=== PATIENT | female | born 1965 | race Caucasian/White ===

== ENCOUNTER 2021-02-17 06:17 | Outpatient (REF) | payer OTHER, SELFPAY ==
[2021-02-17 07:49] LABS: ~HepC Num1 0.08 S/CO (0.00-0.79); ~Hepatitis C Antibody Nonreactive (Nonreactive)
[2021-02-17 08:19] LABS: Alanine Aminotransferase 58 U/L (0-31); Albumin Level 4.6 g/dL (3.5-5.0); Alkaline Phosphatase 99 U/L (39-117); Anion Gap 13 (12-20); Aspartate Amino Transferase 34 U/L (5-31); Bilirubin Total 0.7 mg/dL (0.0-1.0); Blood Urea Nitrogen 13 mg/dL (9-16); Calcium 9.1 mg/dL (8.4-10.2); Carbon Dioxide 27 mmol/L (22-29); Chloride 102 mmol/L (96-108); Cholesterol 239 mg/dL; Estimated Glomerular Filt Rate > 60; Glucose Random 109 mg/dL (60-115); HDL Cholesterol 50 mg/dL; LDL Cholesterol Calculated 159 mg/dl; Potassium 3.9 mmol/L (3.3-5.1); Sodium 138 mmol/L (135-145); Triglycerides 151 mg/dL
[2021-02-17 08:39] LABS: Vitamin D 25-OH Total 18.7 ng/mL (>30)
== END 2021-02-17 06:18 | disposition home or self-care (01) ==
LOC: HO.LAB 06:17
PROVIDERS: PCP Internal Medicine; Visit Provider Physician Assistant Medical
DX: I10 Essential (primary) hypertension (principal); E55.9 Vitamin D deficiency, unspecified; Z13.220 Encounter for screening for lipoid disorders; Z11.59 Encounter for screening for other viral diseases
CPT/HCPCS: 36415; 80053; 80061; 82306; 86803

== ENCOUNTER 2021-11-16 08:02 | Outpatient (REF) | payer OTHER, SELFPAY ==
[2021-11-22 08:51] LABS: HPV mRNA E6/E7 rflx Not Detected (Not Detected)
== END 2021-11-16 08:03 | disposition home or self-care (01) ==
LOC: HO.LAB 08:02
PROVIDERS: PCP Internal Medicine; Visit Provider Obstetrics & Gynecology
DX: Z01.419 Encounter for gynecological examination (general) (routine) without abnormal findings (principal); Z11.51 Encounter for screening for human papillomavirus (HPV)
CPT/HCPCS: 87624; 88142

== ENCOUNTER 2021-12-02 10:07 | Outpatient (REF) | payer OTHER, SELFPAY ==
[2021-12-02 10:28] LABS: MANUAL DIFF FLAG NO
[2021-12-02 11:24] LABS: Basophils Absolute Auto 0.1 X10*3/uL (0.0-0.2); Basophils Percent Auto 0.9 % (0-2); Eosinophils Absolute Auto 0.1 X10*3/uL (0.0-0.4); Eosinophils Percent Auto 1.7 % (0-4); Hematocrit 41.9 % (37.0-47.0); Hemoglobin 13.9 g/dl (12.0-16.0); Imm Gran Abs Auto 0.02 X10*3/uL (0.00-0.03); Imm Gran Pct Auto 0.3 % (0.0-0.4); Lymphocytes Absolute Auto 2.9 X10*3/uL (1.2-4.9); Lymphocytes Percent Auto 43.9 % (20-40); Mean Corpuscular HGB Conc 33.2 g/dl (31.0-35.0); Mean Corpuscular Hemoglobin 28.7 pg (27.0-33.0); Mean Corpuscular Volume 86.6 fL (80.0-98.0); Monocytes Absolute Auto 0.5 X10*3/uL (0.1-1.2); Monocytes Percent Auto 7.1 % (2-11); Neutrophils Absolute Auto 3.1 x10*3/uL (2.0-8.3); Neutrophils Percent Auto 46.1 % (45-73); Platelet Count 381 X10*3/uL (160-400); Red Blood Count 4.84 X10*6/uL (4.20-5.50); Red Cell Distribution Width 12.5 % (11.0-16.0); White Blood Count 6.6 X10*3/uL (4.8-10.8)
[2021-12-02 11:57] LABS: Estimated Average Glucose 114 mg/dL; Hemoglobin A1c % 5.6 %
[2021-12-02 11:58] LABS: Alanine Aminotransferase 26 U/L (0-31); Albumin Level 4.4 g/dL (3.5-5.0); Alkaline Phosphatase 102 U/L (39-117); Anion Gap 12 (12-20); Aspartate Amino Transferase 18 U/L (5-31); Bilirubin Total 0.5 mg/dL (0.0-1.0); Blood Urea Nitrogen 16 mg/dL (9-16); Calcium 9.5 mg/dL (8.4-10.2); Carbon Dioxide 26 mmol/L (22-29); Chloride 106 mmol/L (96-108); Cholesterol 246 mg/dL; Estimated Glomerular Filt Rate > 60; Glucose Random 99 mg/dL (60-115); HDL Cholesterol 58 mg/dL; LDL Cholesterol Calculated 171 mg/dl; Potassium 4.3 mmol/L (3.3-5.1); Sodium 140 mmol/L (135-145); Total Protein 7.8 g/dL (6.5-8.0); Triglycerides 85 mg/dL
[2021-12-02 12:20] LABS: Free T4 (Free Thyroxine) 0.93 ng/dL (0.71-1.85); Thyroid Stimulating Hormone 2.32 uIU/mL (0.32-4.0); Vitamin D 25-OH Total 19.1 ng/mL (>30)
[2021-12-04 05:10] LABS: HBS Num1 1.32 mIU/mL (0-7.99); HBc Num1 0.09 S/CO (0.00-0.79); HBsAGNum1 0.18 S/CO (0.00-0.99); Hepatitis B Core Antibody Nonreactive (Nonreactive); Hepatitis B Surface Antigen Negative (Negative); ~Hepatitis B Surface Antibody NONREACTIVE (Nonreactive)
[2021-12-04 05:49] LABS: ~HepC Num1 0.13 S/CO (0.00-0.79); ~Hepatitis C Antibody Nonreactive (Nonreactive)
[2021-12-04 07:57] LABS: Vitamin B12 737 pg/mL (200-900)
[2021-12-06 23:11] LABS: Smooth Muscle Antibody <20 U (<20)
== END 2021-12-02 10:08 | disposition home or self-care (01) ==
LOC: HO.LAB 10:07
PROVIDERS: PCP Internal Medicine; Visit Provider Internal Medicine
DX: R79.89 Other specified abnormal findings of blood chemistry (principal); R94.5 Abnormal results of liver function studies; I10 Essential (primary) hypertension; R73.01 Impaired fasting glucose; E78.00 Pure hypercholesterolemia, unspecified
CPT/HCPCS: 36415; 80053; 80061; 82306; 82607; 82746; 83036; 84439; 84443; 85025; 86015; 86704; 86706; 86803; 87340

== ENCOUNTER 2022-01-04 08:21 | Outpatient (REF) | payer OTHER, SELFPAY ==
--- NOTE | ~2022-01-04 | US_ITS ---
EXAMINATION: US ABDOMEN COMPLETE CLINICAL INFORMATION: Abnormal LFTs. COMPARISON: Renal ultrasound 09/30/2017. TECHNIQUE: Real-time imaging of the abdominal viscera. FINDINGS: PANCREAS: Normal. ABDOMINAL AORTA: The proximal, mid, and distal segments are normal in caliber. INFERIOR VENA CAVA: Visualized portions are normal. LIVER: The liver is normal in size. The liver contour is normal. The liver shows increased echogenicity. No focal hepatic lesion. There is no intrahepatic biliary duct dilatation seen. GALLBLADDER: Normal. The gallbladder is physiologically distended without evidence of stones, sludge, polyps, wall thickening or pericholecystic fluid. COMMON BILE DUCT: Normal in caliber measuring 0.4 cm in diameter. RIGHT KIDNEY: There is an echogenic stone midpole measuring 0.34 x 0.23 x 0.27 cm and a midpole stone measuring 0.35 x 0.28 x 0.28 cm. No hydronephrosis or focal parenchymal lesions. The kidney measures 12.1 cm in maximum dimension. LEFT KIDNEY: There is an echogenic stone in the lower pole measuring 0.24 x 0.20 x 0.26. No caliectasis or hydronephrosis. There is anechoic cyst measuring 0.76 x 0.57 x 0.78 cm in lower pole. No hydronephrosis. The kidney measures 12.2 cm in maximum dimension. SPLEEN: Normal. The spleen measures 10.3 cm in maximum dimension. FREE FLUID: None. US/US abdomen complete IMPRESSION: 1. Bilateral non-obstructive echogenic renal calculi. Anechoic cysts lower pole left kidney. 2. Hepatic steatosis without focal lesion. 3. The rest of the abdominal ultrasound is unremarkable.
== END 2022-01-04 08:22 | disposition home or self-care (01) ==
LOC: HO.HMGCX 08:21
PROVIDERS: Visit Provider Internal Medicine
DX: R79.89 Other specified abnormal findings of blood chemistry (principal)
CPT/HCPCS: 76700

== ENCOUNTER 2022-01-20 08:35 | Emergency (ER) | payer OTHER, SELFPAY ==
--- NOTE | ~2022-01-20 | XR_ITS ---
EXAMINATION: XR CHEST CLINICAL INFORMATION: Cough. COMPARISON: Most recent chest radiograph dated 08/08/2020. TECHNIQUE: 2 views of the chest were obtained. FINDINGS: The lungs are clear. The cardiomediastinal silhouette is normal in size. There is no pleural effusion or pneumothorax. No acute osseous abnormality. XR/XR chest 2V IMPRESSION: No acute cardiopulmonary findings.
[2022-01-20 08:52] VITALS: BP 171/86; PULSE 71; RESP 18; TEMP 35.8; O2SAT 100; BMI 34.7
[2022-01-20 09:59] LABS: COVID-19 Test Negative (Negative)
--- NOTE | 2022-01-20 10:58 | ED.GENADULT ---
HPI - General Adult General Chief complaint: General Medical <ELIZABETH Rushing - Last Filed: 01/26/22 18:03> Stated complaint: sore throat cough <ELIZABETH Rushing - Last Filed: 01/26/22 18:03> Time Seen by Provider: 01/20/22 09:45 <ELIZABETH Rushing - Last Filed: 01/26/22 18:03> History of Present Illness HPI narrative: Patient complains of productive cough, body aches, nasal congestion and sore throat, no difficulty breathing no difficulty swallowing <ELIZABETH Rushing - Last Filed: 01/26/22 18:03> Related Data Home medications: Home Medications Medication Instructions Recorded Confirmed albuterol sulfate 90 mcg/actuation 2 puff INHALATION Q4-6H PRN 10/09/21 01/26/22 aerosol inhaler (ProAir HFA) butalbital 50 mg-acetaminophen 325 1 cap PO Q4H PRN 10/09/21 01/26/22 mg-caffeine 40 mg-codeine 30 mg cap Previous Rx's Medication Instructions Recorded lorazepam 0.5 mg tablet 0.5 mg PO DAILY PRN 5 Days #5 tab 12/08/21 albuterol sulfate 90 mcg/actuation 2 puff INHALATION Q4-6H PRN #6.7 g 01/20/22 aerosol inhaler azithromycin 250 mg tablet See Rx Instructions .ROUTE 01/20/22 (Zithromax Z-Tim) .COMPLEX #6 tab verapamil 240 mg 24 hr 240 mg PO DAILY 90 Days #90 cap 01/22/22 capsule,extended release amoxicillin 875 mg-potassium 1 tab PO BID #14 tab 01/26/22 clavulanate 125 mg tablet benzonatate 100 mg capsule 100 mg PO BID PRN #14 cap 01/26/22 prednisone 20 mg tablet 20 mg PO BID #9 tab 01/26/22 <ELIZABETH Rushing - Last Filed: 01/26/22 18:03> Allergies/adverse reactions: Allergies Allergy/AdvReac Type Severity Reaction Status Date / Time hydrochlorothiazide Allergy Severe SWELLING Verified 01/26/22 15:01 [HYDROCHLOROTHIAZIDE] lisinopril [LISINOPRIL] Allergy Intermediate FACIAL Verified 01/26/22 15:01 SWELLING peanut [Peanut] Allergy Mild HIVES Verified 01/26/22 15:01 <ELIZABETH Rushing - Last Filed: 01/26/22 18:03> Review of Systems Review of Systems: Positive for cough runny nose and sore throat Negatives are no fever no chills no dizziness or weakness no headache no stiff neck no confusion no fainting or feeling faint no stiff neck no chest pain no shortness of breath no abdominal pain no nausea vomiting or diarrhea no calf swelling no leg swelling no calf pain no rash <ELIZABETH Rushing - Last Filed: 01/26/22 18:03> Yes all other systems are reviewed and are negative <ELIZABETH Rushing - Last Filed: 01/26/22 18:03> PMFSH Past Medical History Source: nursing notes reviewed <ELIZABETH Rushing - Last Filed: 01/26/22 18:03> Medical History: Medical History Asthma Hypercholesterolemia Obesity (BMI 30-39.9) Vitamin D deficiency <ELIZABETH Rushing - Last Filed: 01/26/22 18:03> Surgical History: Surgical History H/O section History of tonsillectomy <ELIZABETH Rushing - Last Filed: 01/26/22 18:03> Family History Family History: Family History Brother Myocardial infarct Paternal Grandfather Myocardial infarct Mother Lymphoma <ELIZABETH Rushing - Last Filed: 01/26/22 18:03> Social History Social History: Social History Housing: House Alcohol intake: never Patient Tobacco Use Status: Never used Tobacco e-Cigarette/Vaping Use: Never Used Second Hand Smoke Exposure: No Current occupational status: employed <ELIZABETH Rushing - Last Filed: 01/26/22 18:03> Physical Exam ED Vital Signs: Vital Signs - 24 hr 01/20/22 08:52 Temperature 96.5 F L Pulse Rate 71 Respiratory Rate 18 Blood Pressure 171/86 H Pulse Oximetry 100 BMI result Body Mass Index 34.7 <ELIZABETH Rushing - Last Filed: 01/26/22 18:03> General appearance is no acute distress The sinuses are not tender The eyes no redness or discharge The pharynx was clear with no redness swelling or exudate, mucous membranes moist Neck is supple Chest clear to auscultation bilateral Heart no murmur Abdomen soft nontender Extremities no edema no calf tenderness or swelling Skin no rash Neuro no gross deficits <ELIZABETH Rushing Last Filed: 01/26/22 18:03> Course Course Course Narrative: Well-appearing patient is treated for productive cough and bronchitis and is discharged <ELIZABETH Rushing Last Filed: 01/26/22 18:03> Medical Decision Making Lab Data Labs: Lab Results 01/20/22 Range/Units 09:32 COVID-19 ([facility]) Negative (Negative) COVID-19 Clin Com See Note <ELIZABETH Rushing Last Filed: 01/26/22 18:03> Discharge Plan Discharge Clinical Impression: Bronchitis <ELIZABETH Rushing Last Filed: 01/26/22 18:03> Patient Disposition: Home, Self-Care <ELIZABETH Rushing Last Filed: 01/26/22 18:03> Additional Instructions: COVID test was negative and chest x-ray was normal Retreating possible bronchitis with antibiotic Zithromax We gave a dose of steroid in the emergency room which may reduce throat inflammation Follow with primary doctor next week if not better Return any time if worse For nasal congestion nasal spray such as Afrin is the best decongestant but it may possibly raise blood pressure Nasal washes or saline spray may be helpful for nasal congestion <ELIZABETH Rushing Last Filed: 01/26/22 18:03> Prescriptions: New azithromycin [Zithromax Z-Tim] 250 mg tablet See Rx Instructions .ROUTE .COMPLEX Qty: 6 0RF Rx Instructions: For 250 mg dose pack: take 500 mg today (day 1), then 250 mg for 4 days (days 2-5) albuterol sulfate 90 mcg/actuation HFA aerosol inhaler 2 puff inhalation Q4-6H PRN (Reason: shortness of breath or wheezing) Qty: 6.7 0RF No Action lorazepam 0.5 mg tablet 0.5 mg PO DAILY PRN (Reason: anxiety) 5 Days Qty: 5 0RF verapamil 240 mg capsule,ext rel. pellets 24 hr 240 mg PO DAILY 90 Days Qty: 90 1RF albuterol sulfate [ProAir HFA] 90 mcg/actuation HFA aerosol inhaler 2 puff inhalation Q4-6H PRN0RF yzrzygqyxq-dqpqgdkven-aha-cod 42-208-43-30 mg capsule 1 cap PO Q4H PRN0RF prednisone 20 mg tablet 20 mg PO BID Qty: 9 0RF Rx Instructions: this is a tapered dose, take 1 tablet bid x 3 days, then take 1 tablet po qd x 3 days. benzonatate 100 mg capsule 100 mg PO BID PRN (Reason: cough) Qty: 14 0RF amoxicillin-pot clavulanate 875-125 mg tablet 1 tab PO BID Qty: 14 0RF <ELIZABETH Rushing - Last Filed: 01/26/22 18:03> Stand Alone Forms: Work/School Release <ELIZABETH Rushing - Last Filed: 01/26/22 18:03> Interventions: ED Discharge Assessment Last Done: 01/20/22 11:14 <ELIZABETH Rushing - Last Filed: 01/26/22 18:03> Discharge Date/Time: 01/20/22 11:16 <ELIZABETH Rushing - Last Filed: 01/26/22 18:03>
--- NOTE | 2022-01-20 11:09 | PC.NURSE ---
SPEAKING IN FULL SENTENCES, LUNGS CLEAR, DRY INTERMITTENT COUGH, NASAL CONGESTION. STEADY GAIT, NEUROS INTACT, NAD.
[2022-01-20] MEDS: dexAMETHasone 2 MG TABLET 10 MG PO (11:10)
== END 2022-01-20 11:16 | disposition home or self-care (01) ==
PROVIDERS: Emergency Provider Emergency Medicine; PCP Internal Medicine
DX: J40 Bronchitis, not specified as acute or chronic (principal); Z20.822 Contact with and (suspected) exposure to COVID-19; J02.9 Acute pharyngitis, unspecified; I10 Essential (primary) hypertension; E78.00 Pure hypercholesterolemia, unspecified
CPT/HCPCS: 71046; 87635; 99283; J8540

== ENCOUNTER 2022-03-15 16:29 | Outpatient (REF) | payer OTHER, SELFPAY ==
--- NOTE | ~2022-03-15 | MM_ITS ---
EXAMINATION: MM SCREENING DIGITAL BREAST TOMOSYNTHESIS, BILATERAL CLINICAL INFORMATION: Screening. Asymptomatic. The lifetime risk of breast cancer based on the Tyrer-Cuzick Model is 7%. COMPARISON: Outside mammography: 05/13/2010 ([place]). TECHNIQUE: Digital breast tomosynthesis is performed in both the craniocaudal and mediolateral oblique views along with computer-aided detection (CAD). Synthesized 2D images are generated from the tomosynthesis. FINDINGS: There are scattered areas of fibroglandular density (ACR BI-RADS breast composition Category b). The breasts show no interval mass or architectural abnormality. The bilateral axilla and skin contours are unremarkable. Left breast shows no abnormal calcifications. Right breast has new numerous segmental distributed calcifications posterior mid lower central breast. There is also a linear distribution calcifications anterior central right breast which are coarser and also new from remote outside exam. Patient will be recalled for additional magnification views. MM/MM tomosynthesis screening BI IMPRESSION: Right: -Numerous new segmental calcifications posterior mid central lower breast. -New linear distribution calcifications anterior central breast. Left: -No mammographic evidence of malignancy. ASSESSMENT: BI-RADS 0: Incomplete - Need Additional Imaging Evaluation RECOMMENDATION: 1. Additional views of the right breast (magnification CC, magnification ML). 2. Radiology department staff will contact the patient for additional imaging. This patient's information was entered into a reminder system with a target due date for their next mammogram.
== END 2022-03-15 16:30 | disposition home or self-care (01) ==
LOC: HO.MAMMO 16:29
PROVIDERS: PCP Internal Medicine; Visit Provider Internal Medicine
DX: Z12.31 Encounter for screening mammogram for malignant neoplasm of breast (principal)
CPT/HCPCS: 77063; 77067

== ENCOUNTER 2022-03-27 08:25 | Outpatient (REF) | payer OTHER, SELFPAY ==
--- NOTE | ~2022-03-27 | MM_ITS ---
EXAMINATION: MM DIAGNOSTIC DIGITAL MAMMOGRAPHY, RIGHT CLINICAL INFORMATION: Recall from screening for new segmental calcifications right breast. TC score 7%. COMPARISON: Mammography: 03/15/2022, 05/13/2010 TECHNIQUE: Digital mammography is performed in the following views: Magnification CC, magnification ML. FINDINGS: There are scattered areas of fibroglandular density (ACR BI-RADS breast composition Category b). The additional views confirm heterogeneous predominantly fine calcifications mid lower right breast, extending posterior to anterior at least 3 cm in length. This represents change from prior remote mammography 2009. There is a second group of new calcifications which are both coarse and fine anterior lower breast, approximately 1.6 cm in length. Results are discussed with the patient at time of visit. Stereotactic sampling of both areas is recommended. MM/MM added views RT IMPRESSION: -Numerous new heterogeneous segmental calcifications mid central lower right breast. -Second group of linear distribution calcifications anterior lower right breast. ASSESSMENT: BI-RADS 4: Suspicious RECOMMENDATION: Stereotactic sampling right breast calcifications, 2 sites.
== END 2022-03-27 08:26 | disposition home or self-care (01) ==
LOC: HO.MAMMO 08:25
PROVIDERS: PCP Internal Medicine; Visit Provider Internal Medicine
DX: R92.1 Mammographic calcification found on diagnostic imaging of breast (principal)
CPT/HCPCS: 77065

== ENCOUNTER 2022-03-28 11:39 | Outpatient (REF) | payer OTHER, SELFPAY ==
--- NOTE | ~2022-03-28 | MM_ITS ---
EXAMINATION: STEREOTACTIC TOMOSYNTHESIS-GUIDED VACUUM-ASSISTED BREAST BIOPSY (TWO SITES), RIGHT SPECIMEN RADIOGRAPHS (TWO SPECIMENS), RIGHT POST PROCEDURE DIGITAL MAMMOGRAM, RIGHT CLINICAL INFORMATION: New heterogeneous segmental calcifications mid central lower right breast and second smaller linear distribution anterior lower right breast. COMPARISON: Mammography 03/27/2022, 03/15/2022, outside exam 05/13/2010 ([place]). TECHNIQUE/PROCEDURE: Informed consent was obtained from the patient after discussion of the benefits, risks, and alternatives to biopsy today. Patient appeared to understand. Gave opportunity for questions. Patient signed consent form. Specimen A: BIOPSY TABLE: Hologic Affirm Prone Biopsy System. LESION: Heterogeneous segmental calcifications mid lower right breast. LOCAL ANESTHESIA: 10 mL carbonated 1% lidocaine; 10 mL 1% lidocaine with epinephrine. DERMATOTOMY: Single skin taylor dermatotomy performed. NEEDLE: Suros Eviva 9-gauge vacuum assisted core biopsy device. APPROACH: caudal cranial. TARGETING: Combination of digital breast tomosynthesis and stereotactic digital mammography used for targeting. CORES: 8. CLIP: Suros SecurMark T-shaped marker. SPECIMEN RADIOGRAPH (A): Specimen radiograph is taken in separate room using digital mammography. The index calcifications are in the excised cores. There are over 50 calcifications in the cores. Specimen B: Fresh biopsy supplies are used for 2nd biopsy site. BIOPSY TABLE: Hologic Affirm Prone Biopsy System. LESION: Linear distribution calcifications anterior lower right breast. LOCAL ANESTHESIA: 5 mL carbonated 1% lidocaine; 10 mL 1% lidocaine with epinephrine. DERMATOTOMY: Single skin taylor dermatotomy performed. NEEDLE: Suros Eviva 9-gauge vacuum assisted core biopsy device. APPROACH: caudal cranial. TARGETING: Combination of digital breast tomosynthesis and stereotactic digital mammography used for targeting. CORES: 8. CLIP: Suros SecurMark Cylinder-shaped marker. SPECIMEN RADIOGRAPH (B): Specimen radiograph is taken in separate room using digital mammography. A paperclip is positioned at edge of the image to denote this as site B . The index calcifications are in the excised cores. There are at least 15 calcifications in the cores. POST PROCEDURE UNILATERAL DIGITAL MAMMOGRAM: The post biopsy mammogram is performed in separate room using separate digital mammography equipment from the biopsy procedure. CC and ML views are obtained. There are scattered areas of fibroglandular density (breast composition category: b). The 2 biopsy clip markers are in position. The calcifications are decreased consistent with the sampling. No significant hematoma. The patient tolerated the procedure well. No immediate complications. Home instructions reviewed with the patient. Final pathology results are pending. MM/MM stereotactic biopsy ea add IMPRESSION: 1. Digital tomosynthesis-guided core biopsy right breast with clip placement, 2 sites mid lower and anterior lower breast, respectively. 2. Specimen radiograph taken and post procedure mammogram. There is satisfactory positioning of the biopsy clips. 3. Final pathology results pending. An addendum report will be issued.
--- NOTE | ~2022-03-28 | MM_ITS ---
EXAMINATION: STEREOTACTIC TOMOSYNTHESIS-GUIDED VACUUM-ASSISTED BREAST BIOPSY (TWO SITES), RIGHT SPECIMEN RADIOGRAPHS (TWO SPECIMENS), RIGHT POST PROCEDURE DIGITAL MAMMOGRAM, RIGHT CLINICAL INFORMATION: New heterogeneous segmental calcifications mid central lower right breast and second smaller linear distribution anterior lower right breast. COMPARISON: Mammography 03/27/2022, 03/15/2022, outside exam 05/13/2010 ([place]). TECHNIQUE/PROCEDURE: Informed consent was obtained from the patient after discussion of the benefits, risks, and alternatives to biopsy today. Patient appeared to understand. Gave opportunity for questions. Patient signed consent form. Specimen A: BIOPSY TABLE: Hologic Affirm Prone Biopsy System. LESION: Heterogeneous segmental calcifications mid lower right breast. LOCAL ANESTHESIA: 10 mL carbonated 1% lidocaine; 10 mL 1% lidocaine with epinephrine. DERMATOTOMY: Single skin taylor dermatotomy performed. NEEDLE: Suros Eviva 9-gauge vacuum assisted core biopsy device. APPROACH: caudal cranial. TARGETING: Combination of digital breast tomosynthesis and stereotactic digital mammography used for targeting. CORES: 8. CLIP: Suros SecurMark T-shaped marker. SPECIMEN RADIOGRAPH (A): Specimen radiograph is taken in separate room using digital mammography. The index calcifications are in the excised cores. There are over 50 calcifications in the cores. Specimen B: Fresh biopsy supplies are used for 2nd biopsy site. BIOPSY TABLE: Hologic Affirm Prone Biopsy System. LESION: Linear distribution calcifications anterior lower right breast. LOCAL ANESTHESIA: 5 mL carbonated 1% lidocaine; 10 mL 1% lidocaine with epinephrine. DERMATOTOMY: Single skin taylor dermatotomy performed. NEEDLE: Suros Eviva 9-gauge vacuum assisted core biopsy device. APPROACH: caudal cranial. TARGETING: Combination of digital breast tomosynthesis and stereotactic digital mammography used for targeting. CORES: 8. CLIP: Suros SecurMark Cylinder-shaped marker. SPECIMEN RADIOGRAPH (B): Specimen radiograph is taken in separate room using digital mammography. A paperclip is positioned at edge of the image to denote this as site B . The index calcifications are in the excised cores. There are at least 15 calcifications in the cores. POST PROCEDURE UNILATERAL DIGITAL MAMMOGRAM: The post biopsy mammogram is performed in separate room using separate digital mammography equipment from the biopsy procedure. CC and ML views are obtained. There are scattered areas of fibroglandular density (breast composition category: b). The 2 biopsy clip markers are in position. The calcifications are decreased consistent with the sampling. No significant hematoma. The patient tolerated the procedure well. No immediate complications. Home instructions reviewed with the patient. Final pathology results are pending. MM/MM stereotactic biopsy RT IMPRESSION: 1. Digital tomosynthesis-guided core biopsy right breast with clip placement, 2 sites mid lower and anterior lower breast, respectively. 2. Specimen radiograph taken and post procedure mammogram. There is satisfactory positioning of the biopsy clips. 3. Final pathology results pending. An addendum report will be issued.
[2022-03-28] MEDS: Lidocaine HCl 1 % 20 ML VIAL 18 ML SUBCUT (14:26)
[2022-03-28] MEDS: Sodium Bicarbonate 8.4% 50 MEQ/50 ML VIAL SUBCUT (14:27)
== END 2022-03-28 11:40 | disposition home or self-care (01) ==
LOC: HO.MAMMO 11:39
PROVIDERS: PCP Internal Medicine; Visit Provider Surgery
DX: R92.1 Mammographic calcification found on diagnostic imaging of breast (principal)
CPT/HCPCS: 19081; 19082; 88305; 88341; 88342; 88360; A4648

== ENCOUNTER → 2022-04-02 11:49 | Outpatient (BNVA) | payer OTHER, SELFPAY | PROVIDERS: PCP Internal Medicine; Referring Provider Internal Medicine; Visit Provider Surgery | DX: R92.1 Mammographic calcification found on diagnostic imaging of breast (principal) ==

== ENCOUNTER 2022-04-10 08:44 | Day surgery (SDC) | payer OTHER, SELFPAY ==
--- NOTE | 2022-04-09 08:46 | HO.ANESPROP2 ---
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) Breast calcification, right (Acute) Obstructive sleep apnea (Acute) Fatty liver (Acute) Bilateral renal stones (Acute) Impaired fasting blood sugar (Acute) Vitamin D deficiency (Acute) Generalized anxiety disorder (Acute) Asthma (Acute) Migraine (Acute) Hypertension (Acute) Obesity (BMI 30-39.9) (Acute) LFT elevation (Acute) Hypercholesterolemia (Acute) Past Medical History Medical History (Updated 04/04/22 @ 14:33 by Tara Cardenas MD) Asthma Breast calcification, right Degenerative cervical disc Hypercholesterolemia Obesity (BMI 30-39.9) Vitamin D deficiency Family History Family History Brother Myocardial infarct Paternal Grandfather Myocardial infarct Mother Lymphoma Father Alcohol abuse Brother LUCA (generalized anxiety disorder) Surgical History Surgical History (Updated 04/03/22 @ 09:55 by Riddhi Marino MD) H/O section History of tonsillectomy Social History Social History (Updated 04/03/22 @ 08:28 by Marci Miranda CMA) Household Members: Spouse and Children Housing: House Are you a primary manager critical care to a significant other at home: Yes Do you presently have visiting nurse or other home services: No Alcohol intake: never Patient Tobacco Use Status: Never used Tobacco e-Cigarette/Vaping Use: Never Used Second Hand Smoke Exposure: No Use of substances other than those prescribed or required for medical reasons: No Are you DNR?: No Advance Directives: No Advance Directives Information Provided: Yes Advance Directives on File: No service: No Current occupational status: employed Cognitive needs: No Hearing needs: No Vision needs: No Meds Allergies Allergy/AdvReac Type Severity Reaction Status Date / Time hydrochlorothiazide Allergy Severe SWELLING Verified 04/04/22 14:27 [HYDROCHLOROTHIAZIDE] lisinopril [LISINOPRIL] Allergy Intermediate FACIAL Verified 04/04/22 14:27 SWELLING peanut [Peanut] Allergy Mild HIVES Verified 04/04/22 14:27 Exam Exam Date and Time: April 09, 2022 0846 Pertinent Lab Results Pertinent Lab Results: Laboratory Tests 04/03/22 04/03/22 10:11 10:11 WBC 5.9 Hgb 13.9 Hct 41.5 Plt Count 309 Sodium 140 Potassium 4.2 Chloride 105 Carbon Dioxide 26 BUN 14 Creatinine 0.81 Assessment and Plan Assessment Anesthesia Assessment: Chart Reviewed Documented by User: Adriana Finch MD 04/10/22 09:43 PMFSH Active Problems Active Problems: All Active Problems (Updated 04/04/22 @ 14:33 by Tara Cardenas MD) 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 Not using CPAP Fatty liver (Acute) Bilateral renal stones (Acute) Impaired fasting blood sugar (Acute) Vitamin D deficiency (Acute) Generalized anxiety disorder (Acute) Asthma (Acute) Migraine (Acute) Hypertension (Acute) Obesity (BMI 30-39.9) (Acute) LFT elevation (Acute) Hypercholesterolemia (Acute) Past Medical History Medical History (Updated 04/04/22 @ 14:33 by Tara Cardenas MD) Asthma Breast calcification, right Degenerative cervical disc Hypercholesterolemia Obesity (BMI 30-39.9) Vitamin D deficiency Family History Family History Brother Myocardial infarct Paternal Grandfather Myocardial infarct Mother Lymphoma Father Alcohol abuse Brother LUCA (generalized anxiety disorder) Family history of problems with anesthesia: No Surgical History Surgical History (Updated 04/03/22 @ 09:55 by Riddhi Marino MD) H/O section History of tonsillectomy History of Problems with Anesthesia: No Social History Social History (Updated 04/03/22 @ 08:28 by Marci Miranda CMA) Household Members: Spouse and Children Housing: House Are you a primary manager critical care to a significant other at home: Yes Do you presently have visiting nurse or other home services: No Alcohol intake: never Patient Tobacco Use Status: Never used Tobacco e-Cigarette/Vaping Use: Never Used Second Hand Smoke Exposure: No Use of substances other than those prescribed or required for medical reasons: No Are you DNR?: No Advance Directives: No Advance Directives Information Provided: Yes Advance Directives on File: No service: No Current occupational status: employed Cognitive needs: No Hearing needs: No Vision needs: No Meds Allergies Allergy/AdvReac Type Severity Reaction Status Date / Time hydrochlorothiazide Allergy Severe SWELLING Verified 04/04/22 14:27 [HYDROCHLOROTHIAZIDE] lisinopril [LISINOPRIL] Allergy Intermediate FACIAL Verified 04/04/22 14:27 SWELLING peanut [Peanut] Allergy Mild HIVES Verified 04/04/22 14:27 Exam Height,Weight and Vital Signs: Height 5 ft 2 in Weight 89.358 kg Vital Signs Temp Pulse Resp BP Pulse Ox 04/10/22 09:16 98.3 F 64 16 160/92 H 99 Airway Mallampati Class: II TM Dist: >3cm Neck ROM: Full Loose/Missing/Broken Teeth: No Heart: RRR Lungs: CTAB Assessment and Plan Assessment Anesthesia Assessment: Anesthesia Plan Discussed Final Anesthetic Review Family History of Problems with Anesthesia: No History of Problems with Anesthesia: No NPO: Yes ASA Class: III Final Preanesthetic Review: No Changes in Pt Med Stat, Meds/Allgs Chart Reviewed, Consent Obtained/Reviewed and Anes Risks/Benef Reviewed Patient Risk: Intermediate Procedure Risk: Low Assessment/Block/Sedation in SS: Assess/Block/Sedation-SS Anesthetic Plan Anesthetic Plan: GA Disposition: Standard PACU
[2022-04-10] VITALS (14 sets, daily range): BP systolic 123–160; BP diastolic 70–92; PULSE 64–88; RESP 12–16; TEMP 36.1–36.8; O2SAT 99–100; BMI 36.0
--- NOTE | ~2022-04-10 | MM_ITS ---
EXAMINATION: MM MAMMOGRAM GUIDED NEEDLE LOCALIZATION BREAST, RIGHT MM NEEDLE LOCALIZATION SPECIMEN FROM THE RIGHT BREAST CLINICAL INFORMATION: Recent stereotactic biopsy at 2 sites inferior right breast, both showing ductal carcinoma in situ. COMPARISON: Mammography 03/15/2022, 03/27/2022, 03/28/2022 TECHNIQUE NEEDLE LOC: Proper informed consent is obtained from the patient after discussion of the procedure, potential risks and complications, and alternatives including declining the procedure today. Patient was given an opportunity for questions. The patient appeared to understand. The patient consented to the procedure and signed the consent form. GUIDANCE: Digital mammography. APPROACH: Caudal Cranial. TARGET: 2 biopsy clip markers and associated calcifications extending more posteriorly from mid inferior clip. There are two biopsy sites with 3 needles placed to allow for bracketing. Case previously discussed with Dr. Lyles. ANESTHESIA: Carbonated lidocaine 1%: 12 mL, divided among 3 sites. LOCALIZATION MARKER: [place] M[employer]. 5 cm length, x3 markers. The skin is prepped and local anesthesia administered. The needles are positioned and position assessed with mammography. The wires are hooked into position. [place] needle protector placed. The patient tolerated the procedure well and had no immediate complication. Localization findings discussed with Dr. Lyles prior to surgery. TECHNIQUE SPECIMEN RADIOGRAPH: Imaging of the excised specimen is performed using digital mammography in 4 views. FINDINGS SPECIMEN RADIOGRAPH: The specimen shows the distal needles and distal hook wires are delivered intact. The 2 biopsy clip markers and the innumerable index calcifications are identified in the specimen. The anterior calcifications extend close to the anterior margin. Results were called to Dr. Simone Lyles in the operating room at the time of imaging. MM/MM needle loc RT IMPRESSION: 1. Status post right breast needle localization with 3 localization wires hooked into position. 2. Post operative specimen radiograph obtained.
--- NOTE | ~2022-04-10 | MM_ITS ---
EXAMINATION: MM MAMMOGRAM GUIDED NEEDLE LOCALIZATION BREAST, RIGHT MM NEEDLE LOCALIZATION SPECIMEN FROM THE RIGHT BREAST CLINICAL INFORMATION: Recent stereotactic biopsy at 2 sites inferior right breast, both showing ductal carcinoma in situ. COMPARISON: Mammography 03/15/2022, 03/27/2022, 03/28/2022 TECHNIQUE NEEDLE LOC: Proper informed consent is obtained from the patient after discussion of the procedure, potential risks and complications, and alternatives including declining the procedure today. Patient was given an opportunity for questions. The patient appeared to understand. The patient consented to the procedure and signed the consent form. GUIDANCE: Digital mammography. APPROACH: Caudal Cranial. TARGET: 2 biopsy clip markers and associated calcifications extending more posteriorly from mid inferior clip. There are two biopsy sites with 3 needles placed to allow for bracketing. Case previously discussed with Dr. Lyles. ANESTHESIA: Carbonated lidocaine 1%: 12 mL, divided among 3 sites. LOCALIZATION MARKER: [place] M[employer]. 5 cm length, x3 markers. The skin is prepped and local anesthesia administered. The needles are positioned and position assessed with mammography. The wires are hooked into position. [place] needle protector placed. The patient tolerated the procedure well and had no immediate complication. Localization findings discussed with Dr. Lyles prior to surgery. TECHNIQUE SPECIMEN RADIOGRAPH: Imaging of the excised specimen is performed using digital mammography in 4 views. FINDINGS SPECIMEN RADIOGRAPH: The specimen shows the distal needles and distal hook wires are delivered intact. The 2 biopsy clip markers and the innumerable index calcifications are identified in the specimen. The anterior calcifications extend close to the anterior margin. Results were called to Dr. Simone Lyles in the operating room at the time of imaging. MM/MM needle loc ea add IMPRESSION: 1. Status post right breast needle localization with 3 localization wires hooked into position. 2. Post operative specimen radiograph obtained.
--- NOTE | 2022-04-10 10:18 | MHC.SHP ---
Pre-Procedural Eval Section A Date of Service: 04/10/22 The patient is an INPATIENT: No Changes since office visit: No Cold of Flu in the past 2 weeks, No New Medical Problems, No Changes in Medication and No Patient answered all questions The History & Physical has been completed within 30 days and I have reviewed it.: Yes Section B Chief Complaint: breast ca Allergies: Allergies Allergy/AdvReac Type Severity Reaction Status Date / Time hydrochlorothiazide Allergy Severe SWELLING Verified 04/04/22 14:27 [HYDROCHLOROTHIAZIDE] lisinopril [LISINOPRIL] Allergy Intermediate FACIAL Verified 04/04/22 14:27 SWELLING peanut [Peanut] Allergy Mild HIVES Verified 04/04/22 14:27 Plan I have reviewed the history and physical and performed a pertinent physical examination on my patient. No changes have occurred unless specified.
[2022-04-10] MEDS: Lidocaine HCl 1 % 20 ML VIAL 18 ML SUBCUT (11:41)
[2022-04-10] MEDS: Sodium Bicarbonate 8.4% 50 MEQ/50 ML VIAL SUBCUT (11:43)
--- NOTE | 2022-04-10 12:52 | W.PM.OPN ---
Operative Note Operative Note Date of Service: 04/10/22 Narrative: Preop diagnosis: DCIS, right breast Postop diagnosis: DCIS right breast Procedure: Right breast lumpectomy with needle localization Surgeon: Simone Lyles MD assistant professor of education: ELIZABETH Chaidez The patient is a 56-year-old female who had recently undergone stereotactic biopsy breast for 2 lesions inferiorly. This both turned out to be DCIS. She wanted to proceed with breast conservation therapy. Explained to her the technique of lumpectomy with needle localization. She understood that she will need whole breast radiation to complete treatment. She was aware of the risks, benefits, and alternatives. Her options had been discussed with her family as well. She was brought to the operating room. He was placed supine under general anesthesia via laryngeal mask airway. The right breast was prepped and draped in the usual sterile fashion. A surgical time-out was done. The patient received cefazolin 2 g IV preoperatively. She had earlier undergone needle localization. I had reviewed her imaging studies with the radiologist. . There were [address], with 2 of them on the area of the DCIS on the biopsy sites can not, and one in between the other 2 were there were some other finer calcifications seen. Fortunately, all these needles and the lesions were in a linear arrangement so after review of the images, lumpectomy was deemed to be feasible. I infiltrated the planned line of incision with lidocaine 1%. I made a narrow elliptical incision surrounding this 3 needles using blade 15. This was carried down with electrocautery through the full-thickness of the skin and subcutaneous fat. I then proceeded to use the curved Arana scissors to dissect the breast tissue surrounding all these 3 needles. Care was taken so as to ensure that we had adequate margins of breast tissue surrounding all these 3 needles. I continued to dissect deeper around all these the needles, extending posteriorly past the curved end of these needles. We were therefore periodically palpating for all 3 needles as well as we advanced with the dissection to make sure that we were going past the and of these needles posteriorly. We continued to use the Arana scissors as we dissected around these 3 needles en mass. This entire specimen was sent for immediate re-ray and immediate gross exam. I then proceeded to then examine the specimen Prior to being sent. I had marked the lateral and anterior/ superior edges with sutures. Examination of the specimen showed that the superior/ anterior margins appeared to be a little close to the biopsy cavity so I removed more margins on the anterior/superior side as well as laterally. I then proceeded to irrigate the biopsy cavity. I controlled oozing areas with electrocautery. once hemostasis was ensured, I proceeded to reapposed deep breast tissue with Dexon 3-0 interrupted sutures. Skin closure was achieved with Dexon 4-0 subcuticular running stitch. At the end of the case, the radiologist had called it was determined that the biopsy sites were within the specimen with good margins radiographically. I then went down to the pathology lab and reviewed the specimens grossly with the pathologist. It did appear that the superior/ anterior margins were close although negative grossly. I did inform the pathologist that had removed more tissue in this area as well as laterally. I went back to the OR and completed the procedure. Steri-Strips and dressings were applied. The incision was infiltrated with Marcaine 0.5% for postop analgesia . The patient tolerated procedure well. Initial and final counts of sponges and instruments were correct. Estimated blood loss was about 50 cc. The patient was extubated without difficulty and transferred to the recovery room with stable vital signs.
[2022-04-10] MEDS: fentaNYL citrate/PF 100 MCG/2 ML VIAL 25 MCG IVPUSH ×3 (13:04→13:28)
[2022-04-10] MEDS: ondansetron HCL 4 MG/2 ML VIAL IVPUSH (13:04)
[2022-04-10] MEDS: oxyCODONE HCl Immed Release 5 MG TABLET PO (14:53)
[2022-04-10] MEDS: Acetaminophen 325 MG TABLET 650 MG PO (14:53)
== END 2022-04-10 16:03 | disposition home or self-care (01) ==
PROVIDERS: PCP Internal Medicine; Visit Provider Surgery
PROC: (CPT 19301; principal; 2022-04-10 11:00)
DX: D05.11 Intraductal carcinoma in situ of right breast (principal); Z17.0 Estrogen receptor positive status [ER+]; J45.909 Unspecified asthma, uncomplicated; M79.7 Fibromyalgia; E78.00 Pure hypercholesterolemia, unspecified; E55.9 Vitamin D deficiency, unspecified; E66.9 Obesity, unspecified; Z68.36 Body mass index [BMI] 36.0-36.9, adult; Z79.899 Other long term (current) drug therapy; Z88.8 Allergy status to other drugs, medicaments and biological substances
CPT/HCPCS: 19301; 19281; 19282; 88307; 88329; 88341; 88342; A4648; J0690; J2250; J2405; J2550; J3010

== ENCOUNTER → 2022-04-23 11:14 | Outpatient (BNVA) | payer OTHER, SELFPAY | PROVIDERS: PCP Internal Medicine; Referring Provider Internal Medicine; Visit Provider Surgery | DX: Z13.89 Encounter for screening for other disorder (principal) ==

== ENCOUNTER 2022-05-04 11:01 | Day surgery (SDC) | payer OTHER, SELFPAY ==
--- NOTE | 2022-05-03 08:12 | P.CONAN_ITS ---
Documented by User: Chiquis Spears NP 05/03/22 08:18 HPI - Anesthesia Eval Consult details Narrative: 56yo F for Right Breast Mass Re-Excision wider margins s/p lumpectomy 03/2022 with GA-LMA 4 PMFSH Active Problems Active Problems: All Active Problems (Updated 04/27/22 @ 12:41 by Madie Bateman, RN) LFT elevation (Acute) Hypertension (Acute) Migraine (Acute) Generalized anxiety disorder (Acute) Impaired fasting blood sugar (Acute) Bilateral renal stones (Acute) Fatty liver (Acute) Obstructive sleep apnea (Acute) Ductal carcinoma in situ (DCIS) of right breast (Acute) Breast calcification, right (Acute) Vitamin D deficiency (Acute) Asthma (Acute) Obesity (BMI 30-39.9) (Acute) Hypercholesterolemia (Acute) Past Medical History Medical History (Updated 04/27/22 @ 12:41 by Madie Bateman, RN) Anxiety Degenerative cervical disc HTN (hypertension) Migraine LUDA (obstructive sleep apnea) Family History Family History Brother Myocardial infarct Paternal Grandfather Myocardial infarct Mother Lymphoma Father Alcohol abuse Brother LUCA (generalized anxiety disorder) Family history of problems with anesthesia: No Surgical History Surgical History (Updated 04/27/22 @ 12:40 by Madie Bateman RN) H/O section History of lumpectomy of right breast History of tonsillectomy History of Problems with Anesthesia: No Social History Social History Household Members: Spouse and Children Housing: House 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 Do you presently have visiting nurse or other home services: No Alcohol intake: never Patient Tobacco Use Status: Never used Tobacco e-Cigarette/Vaping Use: Never Used Second Hand Smoke Exposure: No Use of substances other than those prescribed or required for medical reasons: No Are you DNR?: No Advance Directives: No Advance Directives Information Provided: Yes Recently lost weight without trying: No Nutrition Risks: No Nutritional Risk service: No Current occupational status: employed Cognitive needs: No Hearing needs: No Vision needs: No Meds Allergies Allergy/AdvReac Type Severity Reaction Status Date / Time hydrochlorothiazide Allergy Severe SWELLING Verified 04/23/22 11:30 [HYDROCHLOROTHIAZIDE] lisinopril [LISINOPRIL] Allergy Intermediate FACIAL Verified 04/23/22 11:30 SWELLING peanut [Peanut] Allergy Mild HIVES Verified 04/23/22 11:30 Exam Exam Date and Time: May 03, [id number] Pertinent Lab Results Pertinent Lab Results: Laboratory Tests 04/03/22 04/03/22 10:11 10:11 WBC 5.9 Hgb 13.9 Hct 41.5 Plt Count 309 Sodium 140 Potassium 4.2 Chloride 105 Carbon Dioxide 26 BUN 14 Creatinine 0.81 Narrative Narrative: EKG 01/2022 NSR @ 62 Assessment and Plan Assessment Anesthesia Assessment: Chart Reviewed Final Anesthetic Review Family History of Problems with Anesthesia: No History of Problems with Anesthesia: No Documented by User: Kevin Fierro MD 05/04/22 13:24 [facility] Past Medical History Medical History (Updated 04/27/22 @ 12:41 by Madie Bateman, ALYSHA) Anxiety Degenerative cervical disc HTN (hypertension) Migraine LUDA (obstructive sleep apnea) Functional capacity: independent ambulation Family History Family History Brother Myocardial infarct Paternal Grandfather Myocardial infarct Mother Lymphoma Father Alcohol abuse Brother LUCA (generalized anxiety disorder) Surgical History Surgical History (Updated 04/27/22 @ 12:40 by Madie Bateman RN) H/O section History of lumpectomy of right breast History of tonsillectomy Social History Social History Household Members: Spouse and Children Housing: House 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 Do you presently have visiting nurse or other home services: No Alcohol intake: never Patient Tobacco Use Status: Never used Tobacco e-Cigarette/Vaping Use: Never Used Second Hand Smoke Exposure: No Use of substances other than those prescribed or required for medical reasons: No Are you DNR?: No Advance Directives: No Advance Directives Information Provided: Yes Recently lost weight without trying: No Nutrition Risks: No Nutritional Risk service: No Current occupational status: employed Cognitive needs: No Hearing needs: No Vision needs: No Meds Allergies Allergy/AdvReac Type Severity Reaction Status Date / Time hydrochlorothiazide Allergy Severe SWELLING Verified 04/23/22 11:30 [HYDROCHLOROTHIAZIDE] lisinopril [LISINOPRIL] Allergy Intermediate FACIAL Verified 04/23/22 11:30 SWELLING peanut [Peanut] Allergy Mild HIVES Verified 04/23/22 11:30 Exam Airway Mallampati Class: II TM Dist: >3cm Neck ROM: Full Loose/Missing/Broken Teeth: Yes (Chipped teeth , poor dentition ) Assessment and Plan Assessment Anesthesia Assessment: Anesthesia Plan Discussed Final Anesthetic Review NPO: Yes ASA Class: III Final Preanesthetic Review: Meds/Allgs Chart Reviewed, Consent Obtained/Reviewed and Anes Risks/Benef Reviewed Patient Risk: Intermediate Procedure Risk: Intermediate Anesthetic Plan Anesthetic Plan: GA Disposition: Standard PACU
[2022-05-04] VITALS (10 sets, daily range): BP systolic 143–192; BP diastolic 86–103; PULSE 61–85; RESP 16; TEMP 36–36.5; O2SAT 97–100; BMI 33.5
--- NOTE | 2022-05-04 11:16 | MHC.SHP ---
Pre-Procedural Eval Section A Date of Service: 05/04/22 The patient is an INPATIENT: No Changes since office visit: No Cold of Flu in the past 2 weeks, No New Medical Problems, No Changes in Medication and No Patient answered all questions The History & Physical has been completed within 30 days and I have reviewed it.: Yes Section B Chief Complaint: Intraductal carcinoma in situ of right breast Allergies: Allergies Allergy/AdvReac Type Severity Reaction Status Date / Time hydrochlorothiazide Allergy Severe SWELLING Verified 04/23/22 11:30 [HYDROCHLOROTHIAZIDE] lisinopril [LISINOPRIL] Allergy Intermediate FACIAL Verified 04/23/22 11:30 SWELLING peanut [Peanut] Allergy Mild HIVES Verified 04/23/22 11:30 Plan I have reviewed the history and physical and performed a pertinent physical examination on my patient. No changes have occurred unless specified.
[2022-05-04] MEDS: Lactated Ringers 1,000 ML 100 ML IVCONT (11:27)
--- NOTE | 2022-05-04 12:12 | W.PM.OPN ---
Operative Note Operative Note Date of Service: 05/04/22 Narrative: Preop diagnosis: DCIS, status post lumpectomy, with close margins medially Postop diagnosis: The sameP Procedure: re-excision for wider margins on the medial aspect of the lumpectomy site Surgeon: Simone Lyles MD Anatomy And Physiology Instructor: malick Barba student The patient is a 56 year female was recently undergone lumpectomy needle collision for DCIS. The medial margins were the but were within microns of the DCIS lesion so a re-excision for wider margins medially was recommended. She understood the technique of the procedure. She was aware of the risks, benefits, and alternatives . She was brought to the operating room. She was placed supine. She was under general anesthesia via a and breast airway. The right breast was prepped and draped in the usual sterile fashion. A surgical time-out was done. The patient received cefazolin 2 g IV preoperatively. previous incision was seen on the inferior aspect the breast. I infiltrated this area with lidocaine 1%. I made the incision along this older incision using blade 15. This carried down with electrocautery through the full-thickness of the skin and subcutaneous fat. I proceeded to then identify the previous lumpectomy site within the breast. I retracted the the subcutaneous layer using skin hooks medially. Proceeded to use the curved Arana to excise the breast tissue medial to the previous excision site. I carried this down through the deeper breast tissue excise this completely with the Arana scissors. This was sent as specimen . I irrigated. I cauterized oozing areas. Once hemostasis was ensured, proceeded to reapposed the deeper breast tissue with simple interrupted 3-0 Polysorb sutures. Skin closure was achieved again with Polysorb 4-0 subcuticular running sutures. I infiltrated the area with Marcaine 0.5% for postop Patti. Steri-Strips and dressings were applied. The procedure was then completed. The patient tolerated procedure well. There were no complications noted. Initial and final counts of sponges and instruments were correct. Estimated blood loss about 10 cc . The patient was extubated without difficulty and transferred to the recovery room with stable vital signs.
[2022-05-04] MEDS: oxyCODONE HCl Immed Release 5 MG TABLET PO (13:00)
[2022-05-04] MEDS: fentaNYL citrate/PF 100 MCG/2 ML VIAL 25 MCG IVPUSH (13:02)
[2022-05-04] MEDS: Acetaminophen 325 MG TABLET 650 MG PO (13:02)
--- NOTE | 2022-05-04 14:30 | PC.NURSE ---
patient ambulated to the bathroom and voided
--- NOTE | 2022-05-04 14:37 | PC.NURSE ---
patient states she is ready to go home. patient dressed, IV removed.
== END 2022-05-04 15:11 | disposition home or self-care (01) ==
PROVIDERS: PCP Internal Medicine; Visit Provider Surgery
PROC: (CPT 19120; principal; 2022-05-04 15:00)
DX: D05.11 Intraductal carcinoma in situ of right breast (principal); Z17.0 Estrogen receptor positive status [ER+]; N60.31 Fibrosclerosis of right breast; R53.83 Other fatigue; J45.909 Unspecified asthma, uncomplicated; E55.9 Vitamin D deficiency, unspecified; E66.9 Obesity, unspecified; Z68.34 Body mass index [BMI] 34.0-34.9, adult; Z79.1 Long term (current) use of non-steroidal anti-inflammatories (NSAID); Z79.899 Other long term (current) drug therapy; Z88.8 Allergy status to other drugs, medicaments and biological substances; Z91.010 Allergy to peanuts
CPT/HCPCS: 19301; 88307; J0690; J1100; J2250; J2405; J2550; J3010

== ENCOUNTER 2022-05-17 09:45 | Outpatient (REF) | payer OTHER, SELFPAY ==
--- NOTE | ~2022-05-17 | MM_ITS ---
EXAMINATION: BONE DENSITOMETRY CLINICAL INDICATION: Osteopenia. DCIS, right breast. COMPARISON: None (current study represents initial baseline exam). TECHNIQUE: Using a Golgi DXA System (software version: 13.1) manufactured by [employer], dual-energy x-ray absorptiometry was performed of the lumbar spine and left hip. The images are of good technical quality. Summary results are attached. FINDINGS: AP SPINE L1-L4: BMD 1.285 g/cm2, Z-score 1.1, T-score 0.9, normal. LEFT FEMUR, NECK: BMD 1.049 g/cm2, Z-score 0.7, T-score 0.1, normal. LEFT FEMUR, TOTAL: BMD 1.096 g/cm2, Z-score 0.9, T-score 0.7, normal. IDENTIFIED RISK FACTORS: Menopause, recurrent falls. HISTORY OF FRACTURE: None listed. MEDICATIONS: Vitamin D. MM/XR DEXA axial skeleton IMPRESSION: 1. DIAGNOSIS: Normal bone density based on the lowest T-score value of 0.1 in the femoral neck applying World Health Organization criteria. 2. 10-YEAR FRACTURE RISK PREDICTION, FRAX: According to the guidelines, FRAX calculation should only be performed on patients in the osteopenia bone density category. Therefore, FRAX was not performed on this patient. 3. Treatment Recommendations: NOF guidelines recommend consideration for treatment in postmenopausal women and men age 50 and older presenting with the following: -A hip or vertebral (clinical or morphometric) fracture. -T-score less than or equal to -2.5 at the femoral neck or spine after appropriate evaluation to exclude secondary causes. -Low bone mass at the hip or spine and a 10-year fracture probability by FRAX of greater than or equal to 3% for hip fracture or greater than or equal to 20% for major osteoporotic fracture based on the [place] adapted WHO algorithm. 4. Other Recommendations: All treatment decisions require clinical judgment and consideration of individual patient factors, including patient preferences, comorbidities, previous drug use, risk factors not captured in the FRAX model (e.g. frailty, falls, vitamin D deficiency, increased bone turnover, interval significant decline in bone density) and possible under or overestimation of fracture risk by FRAX. FUTURE SCAN RECOMMENDATION: People with diagnosed cases of osteoporosis or at high risk for fracture should have regular bone mineral density tests. For patients eligible for Medicare, routine testing is allowed once every 2 years. The testing frequency can be increased to one year for patients who have rapidly progressing disease, those who are receiving or discontinuing medical therapy to restore bone mass, or have additional risk factors.
== END 2022-05-17 09:46 | disposition home or self-care (01) ==
LOC: HO.MAMMO 09:45
PROVIDERS: Visit Provider Internal Medicine Medical Oncology
DX: Z13.820 Encounter for screening for osteoporosis (principal); M85.80 Other specified disorders of bone density and structure, unspecified site; D05.11 Intraductal carcinoma in situ of right breast; Z78.0 Asymptomatic menopausal state
CPT/HCPCS: 77080

== ENCOUNTER 2022-05-23 09:50 | Outpatient (REF) | payer OTHER, SELFPAY ==
[2022-05-23 10:41] LABS: Appearance Urine HAZY; Color Urine YELLOW; Glucose Urine UA NEG (NEG); Leukocyte Esterase Urine TRACE (NEG); Nitrite Urine NEG (NEG); PH 5.5 (5.0-8.0); Specific Gravity - Urine 1.025 (1.005-1.025); UACC Culture Trigger NO; Urine Blood TRACE (NEG); Urine Ketones NEG (NEG); Urine Protein TRACE MG/DL (NEG-TRACE)
[2022-05-23 11:14] LABS: Bacteria Urine TRACE /LPF; Mucus Urine 2+ /LPF; RBC Urine 0 /HPF (0); Squamous Epithelial Cell Urine 2+ /LPF
[2022-05-23 11:24] LABS: Alanine Aminotransferase 21 U/L (0-31); Alkaline Phosphatase 103 U/L (39-117); Anion Gap 13 (12-20); Aspartate Amino Transferase 18 U/L (5-31); Bilirubin Total 0.7 mg/dL (0.0-1.0); Blood Urea Nitrogen 14 mg/dL (9-16); Carbon Dioxide 28 mmol/L (22-29); Chloride 103 mmol/L (96-108); Cholesterol 269 mg/dL; Estimated Glomerular Filt Rate 59; Glucose Random 103 mg/dL (60-115); HDL Cholesterol 53 mg/dL; LDL Cholesterol Calculated 181 mg/dl; Potassium 4.2 mmol/L (3.3-5.1); Sodium 140 mmol/L (135-145); Total Protein 8.4 g/dL (6.5-8.0); Triglycerides 178 mg/dL
== END 2022-05-23 09:51 | disposition home or self-care (01) ==
LOC: HO.LAB 09:50
PROVIDERS: PCP Internal Medicine; Visit Provider Internal Medicine
DX: E78.00 Pure hypercholesterolemia, unspecified (principal)
CPT/HCPCS: 36415; 80053; 80061; 81001

== ENCOUNTER 2022-06-19 23:15 | Emergency (ER) | payer OTHER, SELFPAY ==
[2022-06-19 23:17] VITALS: BP 221/112; PULSE 70; RESP 16; TEMP 35.7; O2SAT 100; BMI 33.3
--- NOTE | 2022-06-19 23:20 | ECG_ITS ---
Test Reason : HIGH bp Blood Pressure : / mmHG Vent. Rate : 060 BPM Atrial Rate : 060 BPM P-R Int : 184 ms QRS Dur : 080 ms QT Int : 418 ms P-R-T Axes : 038 006 039 degrees QTc Int : 418 ms Normal sinus rhythm Normal ECG When compared with ECG of 08-AUG-2020 13:16, No significant change was found Referred By: Generic ED Physician Electronically Signed By:SKINNY BYRNES MD
[2022-06-19 23:39] LABS: Basophils Percent Auto 0.5 % (0-2); Eosinophils Absolute Auto 0.2 X10*3/uL (0.0-0.4); Eosinophils Percent Auto 2.1 % (0-4); Hematocrit 37.2 % (37.0-47.0); Hemoglobin 12.7 g/dl (12.0-16.0); Imm Gran Abs Auto 0.02 X10*3/uL (0.00-0.03); Imm Gran Pct Auto 0.2 % (0.0-0.4); Lymphocytes Absolute Auto 3.5 X10*3/uL (1.2-4.9); Lymphocytes Percent Auto 43.6 % (20-40); MANUAL DIFF FLAG NO; Mean Corpuscular HGB Conc 34.1 g/dl (31.0-35.0); Mean Corpuscular Volume 84.9 fL (80.0-98.0); Mean Platelet Volume 8.6 fL (9.4-12.3); Monocytes Absolute Auto 0.7 X10*3/uL (0.1-1.2); Monocytes Percent Auto 8.6 % (2-11); Neutrophils Absolute Auto 3.6 x10*3/uL (2.0-8.3); Platelet Count 358 X10*3/uL (160-400); Red Blood Count 4.38 X10*6/uL (4.20-5.50); Red Cell Distribution Width 12.8 % (11.0-16.0); White Blood Count 8.1 X10*3/uL (4.8-10.8)
[2022-06-19 23:48] VITALS: BP 192/114; PULSE 63; RESP 12; O2SAT 98
[2022-06-20] LABS: Troponin-I High Sensitivity 3.7 ng/L (<3.5-17.0)
--- NOTE | 2022-06-20 00:20 | ED_ITS ---
HPI - General Adult General Chief complaint: General Medical Stated complaint: High Blood Pressure Time Seen by Provider: 06/20/22 00:20 Source: patient Mode of arrival: ambulatory Limitations: no limitations History of Present Illness HPI narrative: Patient has history of hypertension, right breast cancer getting the radiation treatment usually blood pressure well controlled on verapamil and metoprolol which she took today but patient been having pain after radiation treatment today noticed her blood pressure elevated to 221/112 when she came. Patient had mild headache no chest pain or palpitations no shortness of breath Related Data Previous Rx's Medication Instructions Recorded albuterol sulfate 90 mcg/actuation 2 puff inhalation Q4-6H PRN 01/20/22 aerosol inhaler shortness of breath or wheezing #6.7 grams lorazepam 0.5 mg tablet 0.5 mg PO DAILY PRN anxiety 5 days 02/01/22 #5 tabs cholecalciferol (vitamin D3) 125 125 mcg PO DAILY #30 tabs 04/03/22 mcg (5,000 unit) tablet (Vitamin D3) ibuprofen 600 mg tablet 600 mg PO Q6H PRN pain #30 tabs 04/10/22 [id number]-xycyiitamnyua-htwlxmwl 1 cap PO Q8H pain 4 days #12 caps 06/07/22 50 mg-300 mg-40 mg capsule (Fioricet) exemestane 25 mg tablet 25 mg PO DAILY #90 tabs 06/13/22 verapamil 240 mg 24 hr 240 mg PO DAILY 90 days #90 caps 06/18/22 capsule,extended release metoprolol succinate 25 mg 25 mg PO DAILY #30 tabs 06/19/22 tablet,extended release 24 hr oxycodone 5 mg tablet 5 mg PO BID PRN pain 30 days #30 06/19/22 tabs Allergies Allergy/AdvReac Type Severity Reaction Status Date / Time hydrochlorothiazide Allergy Severe SWELLING Verified 06/19/22 12:57 [HYDROCHLOROTHIAZIDE] lisinopril [LISINOPRIL] Allergy Intermediate FACIAL Verified 06/19/22 12:57 SWELLING peanut [Peanut] Allergy Mild HIVES Verified 06/19/22 12:57 Review of Systems Review of Systems: Yes all other systems are reviewed and are negative PMFSH Past Medical History Medical History Anxiety Asthma Breast calcification, right Degenerative cervical disc HTN (hypertension) Hypercholesterolemia Migraine Obesity (BMI 30-39.9) LUDA (obstructive sleep apnea) Vitamin D deficiency Surgical History H/O section History of lumpectomy of right breast History of tonsillectomy Family History Family History Brother Myocardial infarct Paternal Grandfather Myocardial infarct Mother Lymphoma Father Alcohol abuse Brother LUCA (generalized anxiety disorder) Family/Other Breast CA Social History Social History Household Members: Spouse and Children Housing: House Are you a primary certified social workers in health care to a significant other at home: No Do you presently have visiting nurse or other home services: No Alcohol intake: never Patient Tobacco Use Status: Never used Tobacco e-Cigarette/Vaping Use: Never Used Second Hand Smoke Exposure: No Use of substances other than those prescribed or required for medical reasons: No Advance Directives: No Patient : No service: No Current occupational status: employed Cognitive needs: No Hearing needs: No Vision needs: No Physical Exam ED Vital Signs: Vital Signs - 24 hr 06/19/22 23:17 06/19/22 23:48 06/20/22 01:24 Temperature 96.3 F L Pulse Rate 70 63 Respiratory Rate 16 12 17 Blood Pressure 221/112 H 192/114 H Pulse Oximetry 100 98 Oxygen Delivery Method Room Air Room Air 06/20/22 01:25 06/20/22 02:00 Temperature Pulse Rate 63 68 Respiratory Rate 17 12 Blood Pressure 166/90 H 126/84 Pulse Oximetry 100 100 Oxygen Delivery Method Room Air Room Air BMI result Body Mass Index 33.3 Appearance: Alert. Oriented X3. No acute distress. Eyes: PERRLA, No Nystagmus ENT: Pharynx normal. Oral Mucosa moist Neck: Normal inspection. Neck supple. CVS: Normal heart rate and rhythm. Pulses normal. Respiratory: No respiratory distress. Equal air entry bilateral, no wheezing /rales/rhonchi Abdomen: Soft and nontender. Bowel sounds are present, no mass palpable, no CVA tenderness Skin: Skin warm and dry. Normal skin color. Normal skin turgor. Extremities: No lower extremity edema. No calf tenderness Neuro: Oriented X 3. No motor deficit. No sensory deficit.No cerebellar signs , cranial nerves II-XII intact Medical Decision Making MDM Narrative Medical decision making narrative: Patient with transient hypertension secondary to pain blood pressure improved after pain was relieved by giving morphine blood pressure now is 126/84 feeling much better patient does have oxycodone at home advised to continue her medications at home discharge patient home Lab Data Lab results reviewed: Yes I reviewed the patient's lab results. Result diagrams: 06/19/22 23:34 06/20/22 00:04 Labs: Lab Results 06/19/22 06/19/22 06/20/22 Range/Units 23:34 23:34 00:04 WBC 8.1 (4.8-10.8) X10*3/uL RBC 4.38 (4.20-5.50) X10*6/uL Hgb 12.7 (12.0-16.0) g/dl Hct 37.2 (37.0-47.0) % MCV 84.9 (80.0-98.0) fL MCH 29.0 (27.0-33.0) pg MCHC 34.1 (31.0-35.0) g/dl RDW 12.8 (11.0-16.0) % Plt Count 358 (160-400) X10*3/uL MPV 8.6 L (9.4-12.3) fL Immature Gran % (Auto) 0.2 (0.0-0.4) % Neut % (Auto) 45.0 (45-73) % Lymph % (Auto) 43.6 H (20-40) % [place] % (Auto) 8.6 (2-11) % Eos % (Auto) 2.1 (0-4) % Baso % (Auto) 0.5 (0-2) % Lymph # (Auto) 3.5 (1.2-4.9) X10*3/uL [place] # (Auto) 0.7 (0.1-1.2) X10*3/uL Eos # (Auto) 0.2 (0.0-0.4) X10*3/uL Baso # (Auto) 0.0 (0.0-0.2) X10*3/uL Abs Immat Gran (auto) 0.02 (0.00-0.03) X10*3/uL Absolute Neuts (auto) 3.6 (2.0-8.3) x10*3/uL Absolute Nucleated RBC 0.000 (0.0-0.012) X10*3/uL Nucleated RBC % (auto) 0.0 (0.0-0.2) /100WBC Sodium 138 (135-145) mmol/L Potassium 3.8 (3.3-5.1) mmol/L Chloride 102 (96-108) mmol/L Carbon Dioxide 26 (22-29) mmol/L Anion Gap 14 (12-20) BUN 14 (9-16) mg/dL Creatinine 0.72 (0.5-1.4) mg/dL Estim Creat Clear Calc 91.3 Estimated GFR > 60 Random Glucose 99 (60-115) mg/dL Calcium 9.3 (8.4-10.2) mg/dL Total Bilirubin 0.3 (0.0-1.0) mg/dL AST 16 (5-31) U/L ALT 19 (0-31) U/L Alkaline Phosphatase 88 (39-117) U/L Troponin I High Sens 3.7 (<3.5-17.0) ng/L Total Protein 7.5 (6.5-8.0) g/dL Albumin 4.5 (3.5-5.0) g/dL Discharge Plan Discharge Clinical Impression: Hypertension, Pain Patient Disposition: Home, Self-Care Instructions: Chronic Hypertension (ED) Additional Instructions: Take your pain medication as prescribed less likely the cause for high blood pressure Continue blood pressure medication Prescriptions: No Action [id number]-fgyvcgqyvgnnw-mfjd [Fioricet] 50-300-40 mg capsule 1 cap PO Q8H 4 Days Qty: 12 0RF verapamil 240 mg capsule,ext rel. pellets 24 hr 240 mg PO DAILY 90 Days Qty: 90 0RF albuterol sulfate 90 mcg/actuation HFA aerosol inhaler 2 puff inhalation Q4-6H PRN (Reason: shortness of breath or wheezing) Qty: 6.7 0RF cholecalciferol (vitamin D3) [Vitamin D3] 125 mcg (5,000 unit) Tablet 125 mcg PO DAILY Qty: 30 4RF exemestane 25 mg Tablet 25 mg PO DAILY Qty: 90 4RF Rx Instructions: must administer after a meal ibuprofen 600 mg tablet 600 mg PO Q6H PRN (Reason: pain) Qty: 30 0RF lorazepam 0.5 mg tablet 0.5 mg PO DAILY PRN (Reason: anxiety) 5 Days Qty: 5 0RF metoprolol succinate 25 mg tablet extended release 24 hr 25 mg PO DAILY Qty: 30 1RF oxycodone 5 mg tablet 5 mg PO BID PRN (Reason: pain) 30 Days Qty: 30 0RF Rx Instructions: Partial Fill upon patient request.
[2022-06-20 00:35] LABS: Alanine Aminotransferase 19 U/L (0-31); Albumin Level 4.5 g/dL (3.5-5.0); Alkaline Phosphatase 88 U/L (39-117); Anion Gap 14 (12-20); Aspartate Amino Transferase 16 U/L (5-31); Bilirubin Total 0.3 mg/dL (0.0-1.0); Blood Urea Nitrogen 14 mg/dL (9-16); Calcium 9.3 mg/dL (8.4-10.2); Carbon Dioxide 26 mmol/L (22-29); Chloride 102 mmol/L (96-108); Creatinine Clr Calc Pharmacy 91.3; Estimated Glomerular Filt Rate > 60; Glucose Random 99 mg/dL (60-115); Potassium 3.8 mmol/L (3.3-5.1); Sodium 138 mmol/L (135-145); Total Protein 7.5 g/dL (6.5-8.0)
[2022-06-20 01:24] VITALS: RESP 17
[2022-06-20] MEDS: ondansetron HCL 4 MG/2 ML VIAL IVPUSH (01:24)
[2022-06-20] MEDS: Morphine Sulfate 4 MG/ML CARTRIDGE IVPUSH (01:24)
[2022-06-20 01:25] VITALS: BP 166/90; PULSE 63; RESP 17; O2SAT 100
[2022-06-20 02:00] VITALS: BP 126/84; PULSE 68; RESP 12; O2SAT 100
--- NOTE | 2022-06-20 03:02 | PC.NURSE ---
Pt has been cleared to leave. Pt is still worried about her blood pressure as well as waking up her son this early in the morning. RN is allowing pt to remain in her bed for the time being, to hopefully get some rest and for staff to keep their eyes on pt blood pressure. Pt and RN agree to the plan
== END 2022-06-20 03:00 | disposition home or self-care (01) ==
PROVIDERS: Emergency Provider Internal Medicine; PCP Internal Medicine
DX: N64.4 Mastodynia (principal); I10 Essential (primary) hypertension; Z79.899 Other long term (current) drug therapy
CPT/HCPCS: 36415; 80053; 84484; 85025; 93005; 96374; 96375; 99284; J2270; J2405

== ENCOUNTER → 2022-11-20 08:02 | Outpatient (BNVA) | payer OTHER, SELFPAY | PROVIDERS: Visit Provider Obstetrics & Gynecology | DX: Z13.89 Encounter for screening for other disorder (principal) ==

== ENCOUNTER → 2022-11-22 16:22 | Outpatient (BNVA) | payer OTHER, SELFPAY | PROVIDERS: PCP Internal Medicine; Visit Provider Surgery | DX: R92.1 Mammographic calcification found on diagnostic imaging of breast (principal) ==

== ENCOUNTER 2023-05-04 00:17 | Emergency (ER) | payer OTHER, SELFPAY ==
--- NOTE | ~2023-05-04 | XR_ITS ---
EXAMINATION: XR SHOULDER, LEFT CLINICAL INFORMATION: Left shoulder pain. Rule out arthritis or AVN. COMPARISON: None available. TECHNIQUE: Three views of the left shoulder. FINDINGS: No acute fracture or dislocation. Small marginal osteophytes of the acromioclavicular ovoid calcification adjacent to the greater tuberosity calcific rotator cuff tendinopathy. XR/XR shoulder LT min 2V IMPRESSION: * No acute fracture or dislocation. * Mild acromioclavicular arthrosis. * Calcific rotator cuff tendinopathy.
[2023-05-04 00:19] VITALS: BP 188/114; PULSE 86; RESP 19; TEMP 36.3; O2SAT 98; BMI 33.7
--- NOTE | 2023-05-04 00:56 | ECG_ITS ---
Test Reason : LEFT SHOULDER PAIN Blood Pressure : / mmHG Vent. Rate : 073 BPM Atrial Rate : 073 BPM P-R Int : 158 ms QRS Dur : 078 ms QT Int : 412 ms P-R-T Axes : 045 009 044 degrees QTc Int : 453 ms Normal sinus rhythm Nonspecific T wave abnormality Abnormal ECG When compared with ECG of 19-JUN-2022 23:26, No significant change was found Referred By: Alysa Lassiter Electronically Signed By:SKINNY BYRNES MD
[2023-05-04 01:01] VITALS: BP 196/113; PULSE 77; RESP 16; TEMP 36.6; O2SAT 100
[2023-05-04 01:39] LABS: Basophils Percent Auto 0.5 % (0-2); Eosinophils Absolute Auto 0.2 X10*3/uL (0.0-0.4); Eosinophils Percent Auto 2.7 % (0-4); Hematocrit 37.3 % (37.0-47.0); Hemoglobin 12.6 g/dl (12.0-16.0); Imm Gran Abs Auto 0.03 X10*3/uL (0.00-0.03); Imm Gran Pct Auto 0.4 % (0.0-0.4); Lymphocytes Absolute Auto 2.7 X10*3/uL (1.2-4.9); Lymphocytes Percent Auto 36.3 % (20-40); MANUAL DIFF FLAG NO; Mean Corpuscular HGB Conc 33.8 g/dl (31.0-35.0); Mean Corpuscular Volume 85.9 fL (80.0-98.0); Mean Platelet Volume 8.4 fL (9.4-12.3); Monocytes Absolute Auto 0.6 X10*3/uL (0.1-1.2); Monocytes Percent Auto 8.4 % (2-11); Neutrophils Absolute Auto 3.9 x10*3/uL (2.0-8.3); Neutrophils Percent Auto 51.7 % (45-73); Platelet Count 322 X10*3/uL (160-400); Red Blood Count 4.34 X10*6/uL (4.20-5.50); Red Cell Distribution Width 12.5 % (11.0-16.0); White Blood Count 7.5 X10*3/uL (4.8-10.8)
[2023-05-04 01:52] LABS: Alanine Aminotransferase 23 U/L (0-31); Albumin Level 4.2 g/dL (3.5-5.0); Alkaline Phosphatase 104 U/L (39-117); Anion Gap 15 (12-20); Aspartate Amino Transferase 18 U/L (5-31); Bilirubin Total 0.4 mg/dL (0.0-1.0); Blood Urea Nitrogen 20 mg/dL (9-16); Calcium 9.5 mg/dL (8.4-10.2); Carbon Dioxide 24 mmol/L (22-29); Chloride 104 mmol/L (96-108); Creatinine Clr Calc Pharmacy 77.8; Estimated Glomerular Filt Rate > 60; Glucose Random 111 mg/dL (60-115); Potassium 3.8 mmol/L (3.3-5.1); Sodium 139 mmol/L (135-145); Total Protein 7.5 g/dL (6.5-8.0)
--- NOTE | 2023-05-04 02:54 | ED.EXTPRO ---
HPI - Extremity Problem General Chief complaint: Extremity Problem Stated complaint: L Shoulder/Arm pain -No Inj Time Seen by Provider: 05/04/23 02:34 Source: patient Mode of arrival: ambulatory Limitations: no limitations History of Present Illness HPI Narrative: 57-year-old female who presents emergency department for evaluation of left arm pain. The patient has a history of right breast ductal carcinoma. She states that she was treated with radiation therapy and started on exemestane. She states she started this medication in July 2022. She states shortly after starting this medication she started to developed left shoulder pain. Over the last 2 months she has had increased left shoulder pain and she now has pain that radiates to her left biceps. The pain is worse with movement. She states that her doctor was concerned that the exemestane was the cause of her symptoms. She states that over the last 24 hours the pain is become more severe. She is having difficulty moving her left shoulder secondary to her pain. The patient denied any injury to her left upper extremity. She has not noticed any swelling. She denied chest pain, shortness of breath or dyspnea on exertion Related Data Previous Rx's Medication Instructions Recorded kvgflnfiep-sjyxiwefropcs-bqwhtabq 1 cap PO Q8H pain 4 days #12 caps 06/07/22 50 mg-300 mg-40 mg capsule (Fioricet) exemestane 25 mg tablet 25 mg PO DAILY #90 tabs 06/13/22 albuterol sulfate 90 mcg/actuation 2 puff inhalation Q4-6H PRN 10/19/22 aerosol inhaler shortness of breath or wheezing #6.7 grams verapamil 240 mg 24 hr 240 mg PO DAILY 90 days #90 caps 12/17/22 capsule,extended release cholecalciferol (vitamin D3) 125 125 mcg PO DAILY #30 tabs 12/19/22 mcg (5,000 unit) tablet (Vitamin D3) lidocaine 5 % topical patch 1 patch topical DAILY PRN pain 01/09/23 (scale score 7-10) #30 ea fluticasone propionate 50 1 spray intranasal DAILY #16 grams 02/16/23 mcg/actuation nasal spray,suspension (Flonase Allergy Relief) pregabalin 25 mg capsule (Lyrica) 25 mg PO BID 30 days #60 caps 02/19/23 lorazepam 0.5 mg tablet 0.5 mg PO DAILY PRN anxiety 7 days 03/26/23 #7 tabs losartan 100 mg tablet 100 mg PO DAILY 30 days #90 tabs 04/09/23 metoprolol succinate 100 mg 100 mg PO DAILY 30 days #90 tabs 04/23/23 tablet,extended release 24 hr morphine 15 mg immediate release 15 mg PO Q4-6H PRN pain #10 tabs 05/04/23 tablet Allergies Allergy/AdvReac Type Severity Reaction Status Date / Time hydrochlorothiazide Allergy Severe SWELLING Verified 02/19/23 16:19 [HYDROCHLOROTHIAZIDE] lisinopril [LISINOPRIL] Allergy Intermediate FACIAL Verified 02/19/23 16:19 SWELLING peanut [Peanut] Allergy Mild HIVES Verified 02/19/23 16:19 Review of Systems Review of Systems: Yes all other systems are reviewed and are negative [facility] Past Medical History [facility] Narrative: Social history: She denies tobacco, alcohol and drug use. Medical History Anxiety Asthma Cough Degenerative cervical disc History of ductal carcinoma in situ (DCIS) of breast HTN (hypertension) Hypercholesterolemia LFT elevation Migraine Nasal congestion Obesity (BMI 30-39.9) LUDA (obstructive sleep apnea) Vitamin D deficiency Surgical History H/O section History of lumpectomy of right breast History of tonsillectomy Family History Family History Brother Myocardial infarct Paternal Grandfather Myocardial infarct Mother Lymphoma Breast CA Father Alcohol abuse Brother LUCA (generalized anxiety disorder) Family/Other Breast CA Other FHx: mental illness Social History Social History Household Members: Spouse and Children Housing: House Are you a primary healthcare marketer to a significant other at home: No Do you presently have visiting nurse or other home services: No Alcohol intake: never Patient Tobacco Use Status: Never used Tobacco e-Cigarette/Vaping Use: Never Used Second Hand Smoke Exposure: No Advance Directives: No Advance Directives Information Provided: Yes service: No Current occupational status: employed Cognitive needs: No Hearing needs: No Vision needs: No Physical Exam Vital Signs: Vital Signs: Last Vital Signs Temp 97.8 F 05/04/23 01:01 Pulse 77 05/04/23 01:01 Resp 16 05/04/23 01:01 BP 196/113 H 05/04/23 01:01 Pulse Ox 100 05/04/23 01:01 O2 Del Method Room Air 05/04/23 01:01 BMI result Body Mass Index 33.7 Vital signs revealed an elevated blood pressure of 196/113 General: Awake, alert, female patient, pleasant, cooperative in no distress HEENT: Head was normal cephalic atraumatic, pupils equal round reactive light, sclera contact however normal, mouth revealed moist membranes Neck: Supple with no adenopathy Extremities: Patient has tenderness palpation of her left shoulder and left bicep, her extremities appear to be symmetric with no significant swelling. Patient has minimal range of motion of her left shoulder secondary to pain, with passive internal and external rotation she has significant distress, she has no pain with passive movement of her elbow, wrists or fingers. There is no increased warmth or erythema noted over her shoulder other joint space Medications Administered Discontinued Medications Generic Name Dose Route Start Last Admin Trade Name Martinez PRN Reason Stop Dose Admin Acetaminophen 975 mg 05/04/23 02:51 05/04/23 03:01 Acetaminophen 325 Mg Tablet PO 05/04/23 02:52 975 mg ONCE STA Administration Morphine Sulfate 15 mg 05/04/23 02:52 05/04/23 03:01 Morphine Sulfate Immed Release 15 Mg Tablet PO 05/04/23 02:53 15 mg Q4H ONE Administration Medical Decision Making Medical Decision Making MDM Narrative: 57-year-old female with a history of fibromyalgia and right breast cancer who presents emergency department for evaluation of left shoulder pain since July of 2021, patient reports the pain started shortly after she was placed on exemestane (antiestrogen oncology drug). She states that over the past 2 months the pain is gotten worse and with past 24 hours the pain is gotten to the point where she is having difficulty moving her left shoulder and arm. Patient's vital signs did reveal an elevated blood pressure the patient reports this most likely secondary to her pain. Patient has limited active range of motion of left shoulder and significant pain with passive internal external rotation of the shoulder. Patient's laboratory evaluation included a CBC, CMP in these were normal. Given her exam a concerned that she may have problem with her left shoulder joint such as osteoarthritis or avascular necrosis. I did order an x-ray of her left shoulder. Patient's pain was treated with morphine 15 mg orally and Tylenol 975 mg orally 0354: The x-ray revealed no acute fracture or significant arthritis, patient does have calcification of the rotator cuff suggesting that the patient pain may be related to a shoulder injury. I did discuss this with the patient patient was advised to take Tylenol and ibuprofen and for pain not relieved by these medications she was prescribed morphine. The patient will refer to orthopedic providers for further evaluation. Differential Diagnosis Differential diagnosis includes but is not limited to left shoulder avascular necrosis, osteoarthritis, osteoporosis, occult fracture. The radiologist no rotator cuff tendinopathy. I did discuss this with the patient. Lab Data MDM Lab Attestation statement: I reviewed the patient's lab results. 05/04/23 01:35 05/04/23 01:35 Labs: Lab Results 05/04/23 05/04/23 Range/Units 01:35 01:35 WBC 7.5 (4.8-10.8) X10*3/uL RBC 4.34 (4.20-5.50) X10*6/uL Hgb 12.6 (12.0-16.0) g/dl Hct 37.3 (37.0-47.0) % MCV 85.9 (80.0-98.0) fL MCH 29.0 (27.0-33.0) pg MCHC 33.8 (31.0-35.0) g/dl RDW 12.5 (11.0-16.0) % Plt Count 322 (160-400) X10*3/uL MPV 8.4 L (9.4-12.3) fL Immature Gran % (Auto) 0.4 (0.0-0.4) % Neut % (Auto) 51.7 (45-73) % Lymph % (Auto) 36.3 (20-40) % [place] % (Auto) 8.4 (2-11) % Eos % (Auto) 2.7 (0-4) % Baso % (Auto) 0.5 (0-2) % Lymph # (Auto) 2.7 (1.2-4.9) X10*3/uL [place] # (Auto) 0.6 (0.1-1.2) X10*3/uL Eos # (Auto) 0.2 (0.0-0.4) X10*3/uL Baso # (Auto) 0.0 (0.0-0.2) X10*3/uL Abs Immat Gran (auto) 0.03 (0.00-0.03) X10*3/uL Absolute Neuts (auto) 3.9 (2.0-8.3) x10*3/uL Absolute Nucleated RBC 0.000 (0.0-0.012) X10*3/uL Nucleated RBC % (auto) 0.0 (0.0-0.2) /100WBC Sodium 139 (135-145) mmol/L Potassium 3.8 (3.3-5.1) mmol/L Chloride 104 (96-108) mmol/L Carbon Dioxide 24 (22-29) mmol/L Anion Gap 15 (12-20) BUN 20 H (9-16) mg/dL Creatinine 0.84 (0.5-1.4) mg/dL Estim Creat Clear Calc 77.8 Estimated GFR > 60 Random Glucose 111 (60-115) mg/dL Calcium 9.5 (8.4-10.2) mg/dL Total Bilirubin 0.4 (0.0-1.0) mg/dL AST 18 (5-31) U/L ALT 23 (0-31) U/L Alkaline Phosphatase 104 (39-117) U/L Total Protein 7.5 (6.5-8.0) g/dL Albumin 4.2 (3.5-5.0) g/dL Independent Interpretation I performed an independent interpretation of an: Plain X-Ray Interpretation: My independent interpretation of the patient's left shoulder x-ray is no acute fracture, no avascular necrosis, no significant arthritis Radiology Impression Radiologist Impression: XR shoulder LT min 2V IMPRESSION: * No acute fracture or dislocation. * Mild acromioclavicular arthrosis. * Calcific rotator cuff tendinopathy. Dictated By:Dain Mcknight MD Discharge Plan Discharge Clinical Impression: Acute pain of left shoulder, Injury of left rotator cuff Patient Disposition: Home, Self-Care Instructions: Rotator Cuff Injury (ED) Additional Instructions: Your blood work was unremarkable. The x-ray of your shoulder revealed no significant arthritis or osteoporosis of the shoulder bones/joints. The radiologist did note calcification of the rotator cuff suggesting that you have inflammation or injury of the tendons of the rotator cuff or the rotator cuff. (see the radiology reading below). Take ibuprofen 200 mg pills, 2 pills every 6 hours as needed for pain. Take Tylenol (acetaminophen) 325 mg pills, 2 pills every 6 hours as needed for pain. For pain not relieved by ibuprofen or Tylenol take morphine 15 mg pills, 1 pill every 4 hours as needed for pain. This medication will make you sleepy, do not drive or work while taking this medication. Morphine is a narcotic medication and can be addicting. If you are concerned about addiction you can ask the pharmacist for less pills or do not get this prescription filled. Follow-up with Dr. Carrasco within 1-2 weeks. Please return to the emergency department if your symptoms get worse or if you develop any symptoms that are concerning to you. XR shoulder LT min 2V IMPRESSION: *? No acute fracture or dislocation. *? Mild acromioclavicular arthrosis. *? Calcific rotator cuff tendinopathy. ? Dictated By: Dain Mcknight MD Prescriptions: New morphine 15 mg tablet 15 mg PO Q4-6H PRN (Reason: pain) Qty: 10 0RF Rx Instructions: The patient may ask for partial fill; Partial Fill upon patient request. No Action trjvvswliw-hnzjaqmezpyhr-qyfd [Fioricet] 50-300-40 mg capsule 1 cap PO Q8H 4 Days Qty: 12 0RF verapamil 240 mg capsule,ext rel. pellets 24 hr 240 mg PO DAILY 90 Days Qty: 90 2RF fluticasone propionate [Flonase Allergy Relief] 50 mcg/actuation spray,suspension 1 spray intranasal DAILY Qty: 16 0RF Rx Instructions: administer into each nostril lorazepam 0.5 mg tablet 0.5 mg PO DAILY PRN (Reason: anxiety) 7 Days Qty: 7 0RF losartan 100 mg tablet 100 mg PO DAILY 30 Days Qty: 90 2RF metoprolol succinate 100 mg tablet extended release 24 hr 100 mg PO DAILY 30 Days Qty: 90 2RF exemestane 25 mg Tablet 25 mg PO DAILY Qty: 90 4RF Rx Instructions: must administer after a meal cholecalciferol (vitamin D3) [Vitamin D3] 125 mcg (5,000 unit) Tablet 125 mcg PO DAILY Qty: 30 1RF pregabalin [Lyrica] 25 mg capsule 25 mg PO BID 30 Days Qty: 60 1RF lidocaine 5 % adhesive patch,medicated 1 patch topical DAILY PRN (Reason: pain (scale score 7-10)) Qty: 30 0RF Rx Instructions: leave on most painful area for up to 12 hrs. Neck pain albuterol sulfate 90 mcg/actuation HFA aerosol inhaler 2 puff inhalation Q4-6H PRN (Reason: shortness of breath or wheezing) Qty: 6.7 0RF Referrals: Raymon Carrasco MD [Physician] - 2 weeks (Left shoulder pain, x-rays revealed Left calcific rotator cuff tendinopathy. )
[2023-05-04] MEDS: Acetaminophen 325 MG TABLET 975 MG PO (03:01)
[2023-05-04] MEDS: Morphine Sulfate Immed Release 15 MG TABLET PO (03:01)
== END 2023-05-04 04:21 | disposition home or self-care (01) ==
PROVIDERS: Student in an Organized Health Care Education/Training Program; Emergency Provider Emergency Medicine Emergency Medical Services; PCP Internal Medicine
DX: G89.11 Acute pain due to trauma (principal); M25.512 Pain in left shoulder; S46.002A Unspecified injury of muscle(s) and tendon(s) of the rotator cuff of left shoulder, initial encounter; X58.XXXA Exposure to other specified factors, initial encounter; C50.911 Malignant neoplasm of unspecified site of right female breast; Z92.3 Personal history of irradiation; Z79.899 Other long term (current) drug therapy; Y93.9 Activity, unspecified; Y92.9 Unspecified place or not applicable; Y99.9 Unspecified external cause status
CPT/HCPCS: 36415; 73030; 80053; 85025; 93005; 99283; 99284

== ENCOUNTER 2023-08-26 08:25 | Outpatient (REF) | payer OTHER, SELFPAY ==
[2023-08-26 10:05] LABS: Alanine Aminotransferase 18 U/L (0-31); Albumin Level 4.4 g/dL (3.5-5.0); Alkaline Phosphatase 93 U/L (39-117); Anion Gap 15 (12-20); Aspartate Amino Transferase 16 U/L (5-31); Bilirubin Total 0.5 mg/dL (0.0-1.0); Blood Urea Nitrogen 14 mg/dL (9-16); Calcium 9.3 mg/dL (8.4-10.2); Carbon Dioxide 24 mmol/L (22-29); Chloride 105 mmol/L (96-108); Cholesterol 237 mg/dL (<200); Estimated Glomerular Filt Rate > 60; Glucose Random 104 mg/dL (60-115); HDL Cholesterol 55 mg/dL (>40); LDL Cholesterol Calculated 161 mg/dL (<100); Potassium 3.8 mmol/L (3.3-5.1); Sodium 140 mmol/L (135-145); Total Protein 7.5 g/dL (6.5-8.0); Triglycerides 108 mg/dL (<150)
[2023-08-26 10:22] LABS: Free T4 (Free Thyroxine) 0.86 ng/dL (0.71-1.85); Thyroid Stimulating Hormone 2.12 uIU/mL (0.32-4.0); Vitamin D 25-OH Total 33.3 ng/mL (>30)
== END 2023-08-26 08:26 | disposition home or self-care (01) ==
LOC: HO.LAB 08:25
PROVIDERS: PCP Internal Medicine; Visit Provider Internal Medicine
DX: M79.7 Fibromyalgia (principal); E78.00 Pure hypercholesterolemia, unspecified
CPT/HCPCS: 36415; 80053; 80061; 81001; 82306; 82607; 82746; 84439; 84443; 85025; 85652; 86140

== ENCOUNTER 2023-08-26 15:08 | Outpatient (AMB) | payer OTHER, SELFPAY ==
[2023-08-26 15:11] VITALS: BP 142/80; PULSE 65; O2SAT 98; BMI 36.1
--- NOTE | 2023-08-26 15:11 | MHC.PC.OV ---
Vital Signs 08/26/23 15:11 Height 5 ft 3 in Weight 204 lb BMI 36.1 BP 142/80 H Blood Pressure Location Lt brachial Position Sitting Pulse 65 Pulse Source Pulse Oximeter Temp Source Skin Pulse Oximetry (%) 98 Oxygen Delivery Method Room Air Intake Visit Reasons: 2 month f/u Community Health Educator Required: No Allergies hydrochlorothiazide [HYDROCHLOROTHIAZIDE] Allergy (Severe, Verified 08/26/23 15:12) SWELLING lisinopril [LISINOPRIL] Allergy (Intermediate, Verified 08/26/23 15:12) FACIAL SWELLING peanut [Peanut] Allergy (Mild, Verified 08/26/23 15:12) HIVES Medication List - Last Reconciled 08/26/23 by Tara Cardenas MD albuterol sulfate 90 mcg/actuation 2 puffs inhalation Q4-6H PRN lroyzvcepy-ouajsetyzjcvf-wilg 50-300-40 mg (Fioricet) 1 cap PO Q8H 4 days cholecalciferol (vitamin D3) (Vitamin D3) 125 mcg PO DAILY fluticasone propionate 50 mcg/actuation (Flonase Allergy Relief) 1 spray intranasal DAILY hydralazine 10 mg PO BID lidocaine 5% 1 patch topical DAILY PRN lorazepam 0.5 mg PO DAILY PRN 7 days verapamil ER 240 mg PO DAILY 90 days Tobacco use date assessed: 08/26/23 Dental Screening Dental Screen Date: 08/26/23 Did you have a dental visit in the last 12 months?: No Did you have a dental problem in the last 6 months where you did not have access to dental care?: No Was dental information given to patient?: Patient has dentist HPI 2 month f/u HPI Details 57-year-old obese female with right breast cancer, impaired glucose tolerance hypertension asthma and hypercholesterolemia last seen in May 2023. Colonoscopy is up-to-date mammogram is up-to-date. Review of the notes patient has seen the Orthopedics last month due to right forearm pain diagnosis of cubital tunnel syndrome advised wrist immobilzer and splint. Patient also follows up with hematology oncology stage I ductal carcinoma in Situ has had excisional biopsy adjuvant radiation adjuvant endocrine therapy with exemestane which was stopped due to joint pains patient was recommended anastrozole 1 mg once a day as an alternative. anastrozole not started. seen oncology again recently and advised US of breast. 09/06/2023. will be seeing ortho 08/30/2023 . complains of R breast pain and US pending [facility] Medical History Anxiety Asthma Cough Degenerative cervical disc History of ductal carcinoma in situ (DCIS) of breast HTN (hypertension) Hypercholesterolemia LFT elevation Migraine Nasal congestion Obesity (BMI 30-39.9) LUDA (obstructive sleep apnea) Vitamin D deficiency Surgical History H/O section History of lumpectomy of right breast History of tonsillectomy Family History Brother Myocardial infarct Paternal Grandfather Myocardial infarct Mother Lymphoma Breast CA Father Alcohol abuse Brother LUCA (generalized anxiety disorder) Family/Other Breast CA Other FHx: mental illness Social History Household Members: Spouse and Children Housing: House Are you a primary critical care educator to a significant other at home: No Do you presently have visiting nurse or other home services: No Alcohol intake: never Patient Tobacco Use Status: Never used Tobacco e-Cigarette/Vaping Use: Never Used Second Hand Smoke Exposure: No service: No Current occupational status: employed Cognitive needs: No Hearing needs: No Vision needs: No Female Reproductive History Menstrual Age of Menarche: 12 Questionnaire Thrive Questionnaire Date Thrive assessed: 01/25/23 AUDIT C Alcohol Use Questionnaire (AUDIT-C) 1. How often do you have a drink containing alcohol?: Monthly or less 2. How many drinks containing alcohol do you have on a typical day when you are drinking?: 1 or 2 3. How often do you have six or more drinks on one occasion?: Never Total Score: 1 LUCA-7 AMB Questionnaire LUCA-7 Date LUCA - 7 assessed: 01/25/23 Source: Developed by Drs. Oral Ricks, Silvia Freed, Hal Harrison and colleagues, with an educational filippo from [employer]. Physical exam (Primary Care) Vital Signs: Last Vital Signs Pulse 65 08/26/23 15:11 BP 142/80 H 08/26/23 15:11 Pulse Ox 98 08/26/23 15:11 Oxygen Delivery Method Room Air 08/26/23 15:11 BMI result Body Mass Index 36.1 Tobacco/Smoking Status: Tobacco use Status Tobacco use date assessed 08/26/23 08/26/23 15:16 Patient Tobacco Use Status Never used Tobacco 08/26/23 15:16 e-Cigarette/Vaping Use Never Used 08/26/23 15:16 Thrive Assessment: Date of Thrive Assessment Date Thrive assessed 01/25/23 08/26/23 15:16 Const General: alert; No acute distress Eyes Conjunctivae: conjunctivae normal Resp Auscultation: clear to auscultation bilaterally Cardio Rate: regular rate Rhythm: regular rhythm GI Inspection: Yes normal to inspection Extrem General: Yes normal to inspection and No edema Assessment and Plan Assessment & Plan (1) Ductal carcinoma in situ (DCIS) of right breast: Comment: 03/28/2022, right breast lumpectomy March [address]22 Dr. Ovi andrea Code(s): D05.11 - Intraductal carcinoma in situ of right breast Plan: Patient has seen [facility] for 2nd opinion has been advised endocrine treatment as well as bone density. (2) Fatty liver: Code(s): K76.0 - Fatty (change of) liver, not elsewhere classified Plan: Low-fat diet and exercise (3) Impaired fasting blood sugar: Code(s): R73.01 - Impaired fasting glucose Plan: Decrease the amount of carbohydrate intake, pasta, bread, rice and potatoes are all sugar and that is aside from all the sweet stuff, remember that fruits are good but they are Sweet also. (4) Generalized anxiety disorder: Code(s): F41.1 - Generalized anxiety disorder Plan: Continue with medication as needed (5) Hypertension: Code(s): I10 - Essential (primary) hypertension Qualifiers: Hypertension type: primary hypertension Qualified Code(s): I10 - Essential (primary) hypertension Plan: Continue with blood pressure medication. Decrease salt intake and exercise on verapamil 240 mg and hydralazine. monitor the BP at home (6) Obesity (BMI 30-39.9): Code(s): E66.9 - Obesity, unspecified Plan: Diet and exercise (7) Hypercholesterolemia: Code(s): E78.00 - Pure hypercholesterolemia, unspecified Plan: Avoid fried foods, chicken skin, eggs, butter margarine, pastries and meat. Be it pork or beef they have a lot of cholesterol LDL goal of less than 130 and triglyceride of less than 150 (8) Fibromyalgia: Code(s): M79.7 - Fibromyalgia Plan: Keep active Coding Level of Care Code Est Pt Level 4 (77390) Diagnoses Ductal carcinoma in situ (DCIS) of right breast D05.11 Fatty liver K76.0 Impaired fasting blood sugar R73.01 Generalized anxiety disorder F41.1 Primary hypertension I10 Hypertension type: primary hypertension Obesity (BMI 30-39.9) E66.9 Hypercholesterolemia E78.00 Fibromyalgia M79.7
== END 2023-08-26 15:44 | disposition home or self-care (01) ==
PROVIDERS: PCP Internal Medicine; Visit Provider Internal Medicine
DX: D05.11 Intraductal carcinoma in situ of right breast (principal); K76.0 Fatty (change of) liver, not elsewhere classified; R73.01 Impaired fasting glucose; F41.1 Generalized anxiety disorder; I10 Essential (primary) hypertension; E66.9 Obesity, unspecified; E78.00 Pure hypercholesterolemia, unspecified; M79.7 Fibromyalgia; Z68.36 Body mass index [BMI] 36.0-36.9, adult
CPT/HCPCS: 99214

== ENCOUNTER 2023-11-30 09:40 | Outpatient (AMB) | payer OTHER, SELFPAY ==
--- NOTE | 2023-11-30 12:50 | MHC.PC.OV ---
Intake Visit Reasons: EP sinus congestion sore throat uti(masked lobby) Allergies hydrochlorothiazide [HYDROCHLOROTHIAZIDE] Allergy (Severe, Verified 08/26/23 15:12) SWELLING lisinopril [LISINOPRIL] Allergy (Intermediate, Verified 08/26/23 15:12) FACIAL SWELLING peanut [Peanut] Allergy (Mild, Verified 08/26/23 15:12) HIVES Tobacco use date assessed: 08/26/23 [facility] Medical History Anxiety Asthma Cough Degenerative cervical disc History of ductal carcinoma in situ (DCIS) of breast HTN (hypertension) Hypercholesterolemia LFT elevation Migraine Nasal congestion Obesity (BMI 30-39.9) LUDA (obstructive sleep apnea) Vitamin D deficiency Surgical History H/O section History of lumpectomy of right breast History of tonsillectomy Family History Brother Myocardial infarct Paternal Grandfather Myocardial infarct Mother Lymphoma Breast CA Father Alcohol abuse Brother LUCA (generalized anxiety disorder) Family/Other Breast CA Other FHx: mental illness Social History Household Members: Spouse and Children Housing: House Are you a primary intensive care medicine specialist to a significant other at home: No Do you presently have visiting nurse or other home services: No Alcohol intake: never Patient Tobacco Use Status: Never used Tobacco e-Cigarette/Vaping Use: Never Used Second Hand Smoke Exposure: No service: No Current occupational status: employed Cognitive needs: No Hearing needs: No Vision needs: No Female Reproductive History Menstrual Age of Menarche: 12 Questionnaire Thrive Questionnaire Date Thrive assessed: 01/25/23 LUCA-7 AMB Questionnaire LUCA-7 Date LUCA - 7 assessed: 01/25/23 Source: Developed by Drs. Oral Ricks, Silvia Freed, Hal Harrison and colleagues, with an educational filippo from [employer]. Physical exam (Primary Care) Tobacco/Smoking Status: Tobacco use Status Tobacco use date assessed 08/26/23 08/26/23 15:16 Patient Tobacco Use Status Never used Tobacco 08/26/23 15:16 e-Cigarette/Vaping Use Never Used 08/26/23 15:16 Thrive Assessment: Date of Thrive Assessment Date Thrive assessed 01/25/23 08/26/23 15:16 Coding
[2023-11-30 12:56] VITALS: BP 140/90; PULSE 86; TEMP 36.6; O2SAT 99
--- NOTE | 2023-11-30 13:00 | MHC.OFFWIV ---
Intake Vital Signs 11/30/23 12:56 Weight 208 lb BP 140/90 H Blood Pressure Location Lt brachial Position Sitting Pulse 86 Pulse Source Pulse Oximeter Temp 97.9 F Temp Source Oral Pulse Oximetry (%) 99 Oxygen Delivery Method Room Air Intake Visit Reasons: EP sinus congestion sore throat uti(masked lobby) Patient Tobacco Use Status: Never used Tobacco Allergies hydrochlorothiazide [HYDROCHLOROTHIAZIDE] Allergy (Severe, Verified 11/30/23 13:01) SWELLING lisinopril [LISINOPRIL] Allergy (Intermediate, Verified 11/30/23 13:01) FACIAL SWELLING peanut [Peanut] Allergy (Mild, Verified 11/30/23 13:01) HIVES Do you need a note to return to daycare/school/sports/work: No HPI EP sinus congestion sore throat uti(masked lobby) HPI Details Patient is a 57 year old female who is a few weeks out with URI symptoms and now has intermittent post nasal drip with thick sputum associated with sinus pressure radiating to the upper jaw. Covid status at start of infection not checked. She does not report fever or chills, dizziness or vertigo, nausea, vomiting or diarrhea, weakness, myalgia or malaise, ear pain or difficulty hearing, coughing fits, shortness of breath or chest discomfort, loss of sense of taste or smell, or other significant associated symptoms. Patient also complains of new onset urinary frequency, urgency and hesitancy/possible incomplete voiding, especially when coughing due to the URI. She has some low back discomfort over the last few weeks which she states is not the area that she usually gets fibromyalgia flares, but she has no bladder pressure, dysuria, gross hematuria, flank or mid back discomfort, or other significant associated symptoms of UTI. Reviewed past medical history with the patient. [facility] Medical History Anxiety Asthma Cough Degenerative cervical disc History of ductal carcinoma in situ (DCIS) of breast HTN (hypertension) Hypercholesterolemia LFT elevation Migraine Nasal congestion Obesity (BMI 30-39.9) LUDA (obstructive sleep apnea) Vitamin D deficiency Surgical History H/O section History of lumpectomy of right breast History of tonsillectomy Family History Brother Myocardial infarct Paternal Grandfather Myocardial infarct Mother Lymphoma Breast CA Father Alcohol abuse Brother LUCA (generalized anxiety disorder) Family/Other Breast CA Other FHx: mental illness Social History Household Members: Spouse and Children Housing: House Are you a primary daytime caregiver to a significant other at home: No Do you presently have visiting nurse or other home services: No Alcohol intake: never Patient Tobacco Use Status: Never used Tobacco e-Cigarette/Vaping Use: Never Used Second Hand Smoke Exposure: No service: No Current occupational status: employed Cognitive needs: No Hearing needs: No Vision needs: No Female Reproductive History Menstrual Age of Menarche: 12 Review of Systems Const All systems reviewed & are unremarkable except as noted in HPI and below Physical Exam Vital Signs: Last Vital Signs Temp 97.9 F 11/30/23 12:56 Pulse 86 11/30/23 12:56 BP 140/90 H 11/30/23 12:56 Pulse Ox 99 11/30/23 12:56 Oxygen Delivery Method Room Air 11/30/23 12:56 Const General: cooperative, healthy appearing, comfortable, no acute distress, alert, awake, Physically active and well groomed; No anxious, diaphoretic, ill appearing, intoxicated appearing, poor hygiene or tired appearing Nutritional Appearance: average body habitus Orientation/consciousness: oriented to person Limitations: no limitations HEENT Head: Yes normal to inspection, Yes normocephalic and Yes atraumatic Ears: hearing grossly normal bilaterally, external ears normal, TM's normal bilaterally and EAC's normal General nose exam: Normal external nose present, Normal nares present, Normal septum present, Abnormal mucous membranes and turbinates present and Nasal discharge present Face and sinus: Yes face symmetric and Yes sinus tenderness Mouth: Normal oral and palatal mucosa present, lip normal and tongue normal Throat: Yes posterior oropharynx normal, No peritonsillar mass, Yes postnasal drainage, No uvular edema and No cobblestoning Eyes General: appearance normal, both eyes and all related structures Neck Neck: Yes normal visual inspection, Yes no lymphadenopathy, Yes trachea midline, Yes supple and No anterior neck swelling Chest Chest palpation & inspection: normal palpation of entire chest wall Resp Effort & Inspection: normal respiratory effort, able to speak in complete sentences, no audible wheezes, no cough, no grunting, not labored, no nasal flaring, no retractions and symmetric chest movement Auscultation: clear to auscultation bilaterally, no crackles, no rales, no rhonchi, no wheezes, lung sounds not diminished and No rub present Cardio Rate: regular rate Rhythm: regular rhythm General: Yes no CVA tenderness Back/Spine/Pelvis Back: no CVA tenderness Thoracic/Lumbar Spine: thoracic and lumbar spine normal to inspection, paraspinal muscle tenderness and No lumbar spinal tenderness Skin Other: Good color, warm and dry Neuro General: oriented to person Psych Appearance: grossly normal Mental Status: mental status grossly normal Speech and movement: Normal speech and movement present Affect: normal affect Attitude: cooperative Thought process: Normal thought process present Insight: Good insight present (Psych) Judgement: Good judgement present (Psych) Results AMB Urinalysis, Automated UA Leukoctes 0 Billy/uL Last Edit by Daryl Velez [facility] on 11/30/23 13:15 UA Nitrite Negative Last Edit by LeslieEmily Velez [facility] on 11/30/23 13:15 UA Urobilinogen 0.2 mg/dL Last Edit by Daryl Velez [facility] on 11/30/23 13:15 UA Protein 15 mg/dL Last Edit by Daryl Velez [facility] on 11/30/23 13:15 UA pH 7.0 Last Edit by Daryl Velez [facility] on 11/30/23 13:15 UA Blood 10 Derrek/uL Last Edit by Daryl Velez [facility] on 11/30/23 13:15 UA Specific [place] 1.015 Last Edit by Daryl Velez [facility] on 11/30/23 13:15 UA Ketone Negative Last Edit by Daryl Velez [facility] on 11/30/23 13:15 UA Bilirubin 0 mg/dL Last Edit by Daryl Velez [facility] on 11/30/23 13:15 UA Glucose 0 mg/dL Last Edit by LeslieGoldie Velez [facility] on 11/30/23 13:15 Results Reviewed Results Reviewed: Laboratory Last Values Urine pH (Auto) 7.0 11/30/23 13:14 Specific [place] (Auto) 1.015 11/30/23 13:14 Urine Protein (Auto) 15 mg/dL 11/30/23 13:14 Glucose (UA)(Auto) 0 mg/dL 11/30/23 13:14 Urine Ketones (Auto) Negative 11/30/23 13:14 Urine Blood (Auto) 10 Derrek/uL 11/30/23 13:14 Urine Nitrite (Auto) Negative 11/30/23 13:14 Urine Bilirubin (Auto) 0 mg/dL 11/30/23 13:14 Urine Urobilinogen (Auto) 0.2 mg/dL 11/30/23 13:14 Leukocyte Esterase (Auto) 0 Billy/uL 11/30/23 13:14 Trace blood and protein, no nitrites or leuks Assessment & Plan Assessment & Plan (1) Sinusitis: Code(s): J32.9 - Chronic sinusitis, unspecified Qualifiers: Sinusitis location: ethmoidal Chronicity: acute Recurrence: non-recurrent Qualified Code(s): J01.20 - Acute ethmoidal sinusitis, unspecified Plan: Patient is a 57 year old female who is a few weeks out with URI symptoms and now has intermittent thick sputum associated with sinus pressure. Will write her for cephalexin to cover sinusitis as well as possible UTI, as below. Pending respiratory panel to rule out flu, covid and RSV. She was advised to follow up if symptoms persist or worsen (2) UTI (urinary tract infection): Code(s): N39.0 - Urinary tract infection, site not specified Qualifiers: Urinary tract infection type: site unspecified Hematuria presence: with hematuria Qualified Code(s): N39.0 - Urinary tract infection, site not specified; R31.9 - Hematuria, unspecified Plan: Patient complains of new onset urinary frequency, urgency and hesitancy/possible incomplete voiding, especially when coughing due to the URI. Urine dip positive for trace heme and protein but otherwise no leuks or nitrites. She has some low back discomfort over the last few weeks which she states is not the area that she usually gets fibromyalgia flares, but she has no bladder pressure, dysuria, gross hematuria, CVA tenderness or other significant associated symptoms of UTI. I did write her for keflex which should help clear a UTI, and we sent out her urine to determine for sure if she grows bacteria. I advised that she follow up with TRAIN ATTENDANT or urology for further management, as this could be more of a pelvic floor muscle weakness issue if no bacteria grows. Pending results. Orders: Orders SARS-CoV2/FLU/RSV 11/30/23 R05.9 - Cough, unspecified AMB Urinalysis Automated 11/30/23 Z13.9 - Encounter for screening, unspecified UA CC w/rflx Micro + Cult 11/30/23 R30.0 - Dysuria Medications: New cephalexin 500 mg PO BID 10 days 20 caps 0RF Coding Level of Care Code Est Pt Level 4 (49813) Diagnoses Acute non-recurrent ethmoidal sinusitis J01.20 Sinusitis location: ethmoidal Chronicity: acute Recurrence: non-recurrent Urinary tract infection with hematuria, site unspecified N39.0; R31.9 Urinary tract infection type: site unspecified Hematuria presence: with hematuria
== END 2023-11-30 14:11 | disposition home or self-care (01) ==
PROVIDERS: PCP Internal Medicine; Visit Provider Physician Assistant Medical
DX: J01.20 Acute ethmoidal sinusitis, unspecified (principal); N39.0 Urinary tract infection, site not specified; R31.9 Hematuria, unspecified
CPT/HCPCS: 81003; 99051; 99214

== ENCOUNTER 2023-11-30 15:32 | Outpatient (REF) | payer OTHER, SELFPAY ==
[2023-11-30 16:44] LABS: Influenza A PCR NEGATIVE (Negative); Influenza B PCR NEGATIVE (Negative); Resp Syncy Virus RNA Qual PCR NEGATIVE (Negative); SARS COV2 PCR INHOUSE NEGATIVE (Negative)
== END 2023-11-30 15:33 | disposition home or self-care (01) ==
LOC: HO.HMGCLNP 15:32
PROVIDERS: Visit Provider Physician Assistant Medical
DX: Z11.52 Encounter for screening for COVID-19 (principal); Z20.822 Contact with and (suspected) exposure to COVID-19; R05.9 Cough, unspecified
CPT/HCPCS: 0241U

== ENCOUNTER 2023-12-26 08:44 | Outpatient (AMB) | payer OTHER, SELFPAY ==
[2023-12-26 08:53] VITALS: BP 150/98; BMI 37.2
--- NOTE | 2023-12-26 08:53 | MHC.OFFVIS ---
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 No complaints. Last Pap/HPV was in 12/09 Last Mammogram was done at [facility] in 11/09, the results showed BI-RADS 3 , the recommendation was to repeat in 6 months Last Colonoscopy was 3 years ago PFSH Medical History Nasal congestion History of ductal carcinoma in situ (DCIS) of breast Cough Anxiety Migraine HTN (hypertension) LUDA (obstructive sleep apnea) Degenerative cervical disc Asthma Obesity (BMI 30-39.9) LFT elevation Vitamin D deficiency Hypercholesterolemia Surgical History Hx of tubal ligation History of lumpectomy of right breast History of tonsillectomy H/O section Family History Brother Myocardial infarct Paternal Grandfather Myocardial infarct Mother Lymphoma Breast CA Father Alcohol abuse Brother LUCA (generalized anxiety disorder) Family/Other Breast CA Other FHx: mental illness Social History Household Members: Spouse and Children Housing: House Are you a primary rn primary care to a significant other at home: No Do you presently have visiting nurse or other home services: No Alcohol intake: never Patient Tobacco Use Status: Never used Tobacco e-Cigarette/Vaping Use: Never Used Second Hand Smoke Exposure: No Patient : No service: No Current occupational status: employed Cognitive needs: No Hearing needs: No Vision needs: No Female Reproductive History Menstrual Age of Menarche: 12 control method: permanent sterilization Total pregnancies: 4 Full term: 3 Number of Living Children: 3 Ab spontaneous: 1 Date of last pap smear: 11/20/21 (negative) Date of Mammogram: 10/30/23 Review of Systems Const All systems reviewed & are unremarkable except as noted in HPI and below Card Reports as per HPI Resp Reports as per HPI GI Reports as per HPI and Reports no additional complaints Reports as per HPI Physical Exam Vital Signs: Last Vital Signs BP 150/98 H 12/26/23 08:53 BMI result Body Mass Index 37.2 Const General: cooperative, healthy appearing and comfortable Chest Chest palpation & inspection: normal inspection of the chest and normal palpation of entire chest wall Breast/axilla inspection: normal inspection of the breasts and normal inspection of the axillae Breast/axilla palpation: normal palpation of the breasts, normal palpation of the axillae and no axillary lymphadenopathy Resp Effort & Inspection: normal respiratory effort Auscultation: clear to auscultation bilaterally Percussion: percussion normal Cardio Palpation: normal PMI Rate: regular rate Rhythm: regular rhythm Heart sounds: no murmurs and no rubs Peripheral pulses: Peripheral pulses 2+ throughout GI Inspection: Yes normal to inspection Palpation (GI): Soft to palpation, nontender, no guarding, not rigid and No hepatosplenomegaly present Percussion: Yes normal to percussion Auscultation: normal bowel sounds Rectal Exam - Female: deferred General: Yes bladder normal to palpation External Female Exam: No lesion Speculum Exam - Vagina: normal appearance of the vagina, normal palpation, normal vaginal discharge and not erythematous Speculum Exam - Cervix: normal appearance of the cervix and normal palpation Bimanual exam- vagina & uterus: normal bimanual exam, normal palpation, uterine size normal, bladder normal to palpation, consistency normal and normal palpation Bimanual Exam- Adnexa, other: normal adnexae, no masses and no tenderness Assessment & Plan Assessment & Plan (1) Well woman exam: Code(s): Z01.419 - Encounter for gynecological examination (general) (routine) without abnormal findings Plan: Co testing not indicated this year. Counseled the patient about the recommended dietary allowance of 1200 mg of Calcium & 600 IU of vitamin D. Instructions given the patient to schedule next Mammogram in 05/11, and to check with her GI regarding her next due date for screening colonoscopy The patient was instructed to perform monthly self-breast exams and schedule annual exam in a year. All questions answered and the patient verbalized understanding. Coding Level of Care Code Est Pt Prev Care 40-64y(34491) Diagnoses Well woman exam Z01.419
== END 2023-12-26 09:14 | disposition home or self-care (01) ==
LOC: HO.HWS 08:44
PROVIDERS: PCP Internal Medicine; Visit Provider Obstetrics & Gynecology
DX: Z01.419 Encounter for gynecological examination (general) (routine) without abnormal findings (principal)
CPT/HCPCS: 99396

== ENCOUNTER → 2023-12-26 08:44 | Outpatient (BNVA) | payer OTHER, SELFPAY | PROVIDERS: PCP Internal Medicine; Visit Provider Obstetrics & Gynecology ==

== ENCOUNTER 2024-03-26 15:16 | Outpatient (AMB) | payer OTHER, SELFPAY ==
[2024-03-26 15:23] VITALS: BP 152/80; PULSE 90; O2SAT 97; BMI 37.0
--- NOTE | 2024-03-26 15:23 | MHC.PC.OV ---
Vital Signs 03/26/24 15:23 03/26/24 15:51 Height 5 ft 3 in Weight 209 lb BMI 37.0 BP 152/80 H 138/80 Blood Pressure Location Lt brachial Lt brachial Position Sitting Sitting Pulse 90 Pulse Source Pulse Oximeter Pulse Oximetry (%) 97 Oxygen Delivery Method Room Air Intake Visit Reasons: Follow up breast CA/IGT Professional Driver Required: No Accompanied by: Mother Allergies hydrochlorothiazide [HYDROCHLOROTHIAZIDE] Allergy (Severe, Verified 03/26/24 15:28) SWELLING lisinopril [LISINOPRIL] Allergy (Intermediate, Verified 03/26/24 15:28) FACIAL SWELLING peanut [Peanut] Allergy (Mild, Verified 03/26/24 15:28) HIVES Medication List - Last Reconciled 03/26/24 by Tara Cardenas MD albuterol sulfate 90 mcg/actuation 2 puffs inhalation Q4-6H PRN dqcigsrbsj-icgvxktglzscl-gpuw 50-300-40 mg (Fioricet) 1 cap PO Q8H 4 days cholecalciferol (vitamin D3) (Vitamin D3) 125 mcg PO DAILY fluticasone propionate 50 mcg/actuation (Flonase Allergy Relief) 1 spray intranasal DAILY hydralazine 10 mg PO BID lidocaine 5% 1 patch topical DAILY PRN lorazepam 0.5 mg PO DAILY PRN 7 days verapamil ER 240 mg PO DAILY 90 days Tobacco use date assessed: 03/26/24 Dental Screening Dental Screen Date: 03/26/24 Did you have a dental visit in the last 12 months?: No Did you have a dental problem in the last 6 months where you did not have access to dental care?: No Was dental information given to patient?: Patient has dentist HPI Follow up breast CA/IGT HPI Details 58-year-old obese female with a history of right breast cancer April 2022 fatty liver impaired glucose tolerance generalized anxiety disorder hypertension hypercholesterolemia coming in for follow-up. Last seen in August 2023. Patient's colon test is up-to-date 11/22/2019 years mammogram is up-to-date April 2023 bone density April 2022.. Review of the notes in November 2023 seen by Hematology-Oncology placed on exemestane 25 mg June 2022 to February 2023 discontinued due to intolerance discussed about anastrozole but the patient declined to start it. Advise of DM or cancer center bone density baseline April 2022 followed up every couple of years has advised aromatase anastrozole 1 mg once a day but patient opted to hold off mammogram October 2023 for follow-up on the bilateral group of calcification in the right breast and repeating bilateral diagnostic mammogram in April 2024. Patient was seen by the Urgent Center in November 2023 for sore throat and sinus congestion and urinalysis. Cephalexin prescription sent in [facility] Medical History Nasal congestion History of ductal carcinoma in situ (DCIS) of breast Cough Anxiety Migraine HTN (hypertension) LUDA (obstructive sleep apnea) Degenerative cervical disc Asthma Obesity (BMI 30-39.9) LFT elevation Vitamin D deficiency Hypercholesterolemia Surgical History Hx of tubal ligation History of lumpectomy of right breast History of tonsillectomy H/O section Family History Brother Myocardial infarct Paternal Grandfather Myocardial infarct Mother Lymphoma Breast CA Father Alcohol abuse Brother LUCA (generalized anxiety disorder) Family/Other Breast CA Other FHx: mental illness Social History Household Members: Spouse and Children Housing: House Are you a primary healthcare management consultant to a significant other at home: No Do you presently have visiting nurse or other home services: No Alcohol intake: never Patient Tobacco Use Status: Never used Tobacco e-Cigarette/Vaping Use: Never Used Second Hand Smoke Exposure: No service: No Current occupational status: employed Cognitive needs: No Hearing needs: No Vision needs: No Female Reproductive History Menstrual Age of Menarche: 12 Questionnaire PHQ-9 Over the last 2 weeks, how often have you been bothered by any of the following problems? 1. Little interest or pleasure in doing things: not at all 2. Feeling down, depressed, or hopeless: not at all 3. Trouble falling or staying asleep, or sleeping too much: not at all 4. Feeling tired or having little energy: not at all 5. Poor appetite or overeating: not at all 6. Feeling bad about yourself - or that you are a failure or have let yourself or your family down: not at all 7. Trouble concentrating on things, such as reading the newspaper or watching television: not at all 8. Moving or speaking so slowly that other people could have noticed. Or the opposite - being so fidgety or restless that you have been moving around a lot more than usual: not at all 9. Thoughts that you would be better off or of hurting yourself in some way: not at all Total score: 0 Depression Screening Interpretation: Negative Depression Screening Done: Yes 13126 - PHQ-9 Billing: Yes Source: Developed by Drs. Oral Ricks, Silvia Freed, Hal Harrison and colleagues, with an educational filippo from [employer]. Thrive Questionnaire Date Thrive assessed: 03/26/24 I am a: Patient What is your living situation today?: I have a steady place to live Within the past 12 months, did the food you bought not last and you didn't have the money to get more?: Never true Within the past 12 months, did you worry whether your food would run out before you got money to buy more?: Never true Do you have trouble paying for medicines?: No Do you have trouble getting transportation to medical appointments?: No Do you have trouble paying your heating and electricity bill?: No Do you have trouble taking care of your child, family member or friend?: No Do you have trouble with day-to-day activities such as bathing, preparing meals, shopping, managing finances, etc.?: No Are you currently unemployed and looking for a job?: No Are you interested in more education?: No Please select the resources that you would like help with: None Currently or been in a relationship where the following occur: no concerns reported THRIVE Score: 0 AUDIT C Alcohol Use Questionnaire (AUDIT-C) 1. How often do you have a drink containing alcohol?: Monthly or less 2. How many drinks containing alcohol do you have on a typical day when you are drinking?: 1 or 2 3. How often do you have six or more drinks on one occasion?: Never Total Score: 1 LUCA-7 AMB Questionnaire LUCA-7 Date LUCA - 7 assessed: 03/26/24 Feeling nervous, anxious, or on edge: 0 = Not at all Not being able to stop or control worryin = Not at all Worrying too much about different things: 0 = Not at all Trouble relaxin = Not at all Being so restless that it is hard to sit still: 0 = Not at all Becoming easily annoyed or irritable: 0 = Not at all Feeling afraid as if something awful might happen: 0 = Not at all Total LUCA-7 score (0-4 normal; 5-9 mild; 10-14 moderate; 15-21 severe): 0 Source: Developed by Drs. Oral Ricks, Silvia Freed, Hal Harrison and colleagues, with an educational filippo from [employer]. LUCA-7 Assessment Billing LUCA-7 Assessment Tool: LUCA-7 Assessment 86495 Physical exam (Primary Care) Vital Signs: Last Vital Signs Pulse 90 03/26/24 15:23 BP 152/80 H 03/26/24 15:23 Pulse Ox 97 03/26/24 15:23 Oxygen Delivery Method Room Air 03/26/24 15:23 BMI result Body Mass Index 37.0 Tobacco/Smoking Status: Tobacco use Status Tobacco use date assessed 03/26/24 03/26/24 15:31 Patient Tobacco Use Status Never used Tobacco 03/26/24 15:31 e-Cigarette/Vaping Use Never Used 03/26/24 15:31 PHQ-9: PHQ-9 Score PHQ-9: Total score 0 03/26/24 15:31 Depression Screening Interpretation: Negative Thrive Assessment: Date of Thrive Assessment Date Thrive assessed 03/26/24 03/26/24 15:31 Currently or been in a relationship where the following occur: no concerns reported Const General: alert; No acute distress Eyes Conjunctivae: conjunctivae normal Resp Auscultation: clear to auscultation bilaterally Cardio Rate: regular rate Rhythm: regular rhythm GI Inspection: Yes normal to inspection Extrem General: Yes normal to inspection and No edema Assessment and Plan Assessment & Plan (1) Ductal carcinoma in situ (DCIS) of right breast: Comment: 03/28/2022, right breast lumpectomy March [address]22 Dr. Ovi andrea Code(s): D05.11 - Intraductal carcinoma in situ of right breast Plan: Reviewed the note from [facility] oncology regarding breast cancer. Has advised aromatase inhibitor anastrozole due to intolerance from exemestane. Mammogram in April and October. Bone density follow-up in April 2024. (2) Impaired fasting blood sugar: Code(s): R73.01 - Impaired fasting glucose Plan: Decrease the amount of carbohydrate intake, pasta, bread, rice and potatoes are all sugar and that is aside from all the sweet stuff, remember that fruits are good but they are Sweet also. August 2023 last blood work (3) Obstructive sleep apnea: Comment: decline treatment Code(s): G47.33 - Obstructive sleep apnea (adult) (pediatric) Plan: Discussed the importance of CPAP treatment (4) Fatty liver: Code(s): K76.0 - Fatty (change of) liver, not elsewhere classified Plan: Low-fat diet and exercise (5) Asthma: Code(s): J45.909 - Unspecified asthma, uncomplicated Plan: Continue with the inhaler albuterol as needed (6) Hypertension: Code(s): I10 - Essential (primary) hypertension Qualifiers: Hypertension type: primary hypertension Qualified Code(s): I10 - Essential (primary) hypertension Plan: Continue with blood pressure medication. Decrease salt intake and exercise presently on verapamil 240 mg once a day hydralazine 10 mg twice a day but discussed the blood pressure remains to be elevated (7) Obesity (BMI 30-39.9): Code(s): E66.9 - Obesity, unspecified Plan: Diet and exercise (8) Hypercholesterolemia: Code(s): E78.00 - Pure hypercholesterolemia, unspecified Plan: Avoid fried foods, chicken skin, eggs, butter margarine, pastries and meat. Be it pork or beef they have a lot of cholesterol LDL goal of less than 130 and triglyceride of less than 150 (9) Fibromyalgia: Code(s): M79.7 - Fibromyalgia Plan: Have adequate sleep, keep active increase oral fluids and eat healthy. (10) Bilateral renal stones: Comment: December 2021 Code(s): N20.0 - Calculus of kidney (11) RUQ abdominal pain: Code(s): R10.11 - Right upper quadrant pain Orders: Orders XR DEXA axial skeleton 2 Months D05.11 - Intraductal carcinoma in situ of right breast, M81.0 - Age-related osteoporosis without current pathological fracture US abdomen complete Today N20.0 - Calculus of kidney, R79.89 - Other specified abnormal findings of blood chemistry Hemoglobin A1c 3 Months R73.01 - Impaired fasting glucose Comprehensive Met. Panel 3 Months R73.01 - Impaired fasting glucose Complete Blood Count Auto Diff 3 Months R73.01 - Impaired fasting glucose Free T4 (Free Thyroxine) 3 Months R73.01 - Impaired fasting glucose Vitamin D 25-OH Total 3 Months R73.01 - Impaired fasting glucose UA CC w/rflx Micro + Cult Today R30.0 - Dysuria, R73.01 - Impaired fasting glucose Thyroid Stimulating Hormone 3 Months R73.01 - Impaired fasting glucose Lipid Panel 3 Months E78.00 - Pure hypercholesterolemia, unspecified, R73.01 - Impaired fasting glucose Vitamin B12 and Folate 3 Months R73.01 - Impaired fasting glucose Medications: New oxycodone Partial Fill upon patient request. 5 mg PO BID PRN 6 tabs 0RF pain M79.7 - Fibromyalgia Refilled cholecalciferol (vitamin D3) (Vitamin D3) 125 mcg PO DAILY 90 tabs 2RF E55.9 - Vitamin D deficiency, unspecified Discontinued hydralazine Discontinued Reason: Patient Refused 10 mg PO BID 60 tabs 2RF I10 - Essential (primary) hypertension Coding Level of Care Code Est Pt Level 4 (76122) Diagnoses Ductal carcinoma in situ (DCIS) of right breast D05.11 Impaired fasting blood sugar R73.01 Obstructive sleep apnea G47.33 Fatty liver K76.0 Asthma J45.909 Primary hypertension I10 Hypertension type: primary hypertension Obesity (BMI 30-39.9) E66.9 Hypercholesterolemia E78.00 Fibromyalgia M79.7 Bilateral renal stones N20.0 RUQ abdominal pain R10.11 Additional Codes LUCA-7 Assessment Billing - LUCA-7 Assessment Tool: LUCA-7 Assessment [id number] ([id number])
[2024-03-26 15:51] VITALS: BP 138/80
== END 2024-03-26 16:05 | disposition home or self-care (01) ==
PROVIDERS: PCP Internal Medicine; Visit Provider Internal Medicine
DX: G47.33 Obstructive sleep apnea (adult) (pediatric) (principal); D05.11 Intraductal carcinoma in situ of right breast; R73.01 Impaired fasting glucose; Z68.37 Body mass index [BMI] 37.0-37.9, adult; E66.9 Obesity, unspecified; K76.0 Fatty (change of) liver, not elsewhere classified; J45.909 Unspecified asthma, uncomplicated; I10 Essential (primary) hypertension; E78.00 Pure hypercholesterolemia, unspecified; M79.7 Fibromyalgia; N20.0 Calculus of kidney; R10.11 Right upper quadrant pain
CPT/HCPCS: 99214

== ENCOUNTER 2024-04-15 07:57 | Outpatient (REF) | payer OTHER, SELFPAY ==
--- NOTE | ~2024-04-15 | US_ITS ---
EXAMINATION: US ABDOMEN COMPLETE CLINICAL INFORMATION: Other specified abnormal findings of blood chemistry. COMPARISON: Ultrasound abdomen complete 02/01/2022. Renal ultrasound 09/30/2017. TECHNIQUE: Real-time imaging of the abdominal viscera. Limited visualization due to bowel gas. FINDINGS: PANCREAS: Limited visualization of pancreatic tail and head. Imaged portion of pancreatic body is unremarkable. ABDOMINAL AORTA: Unremarkable. INFERIOR VENA CAVA: Visualized portions are normal. LIVER: Hepatomegaly, 18.0 cm. Increased hepatic parenchymal heterogeneity and echogenicity could be associated with hepatocellular disease/hepatic steatosis and substantially limits visualization. Correlation with liver function tests and clinical exam recommended to determine further management. GALLBLADDER: No gallstones. No pericholecystic fluid. COMMON BILE DUCT: Normal in caliber measuring 0.3 cm in diameter. RIGHT KIDNEY: Right renal 5 mm mid pole calculus. No hydronephrosis. Limited visualization. The kidney measures 11.6 cm in maximum dimension. LEFT KIDNEY: 1.1 cm mid pole cyst with peripheral 0.4 cm echogenic focus characteristic of calcification, likely correlates with 0.8 cm left lower pole cyst seen on ultrasound of 01/04/2022. 0.9 cm lateral mid pole cyst. There is no specific indication for additional imaging at this time. There is no specific indication for additional imaging at this time. No hydronephrosis. The kidney measures 12.3 cm in maximum dimension. SPLEEN: Normal. The spleen measures 9.5 cm in maximum dimension. FREE FLUID: None. US/US abdomen complete IMPRESSION: 1. Hepatomegaly, 18.0 cm. Increased hepatic parenchymal heterogeneity and echogenicity could be associated with hepatocellular disease/hepatic steatosis and substantially limits visualization. Correlation with liver function tests and clinical exam recommended to determine further management. 2. Right renal 5 mm mid pole calculus. No hydronephrosis.
== END 2024-04-15 07:58 | disposition home or self-care (01) ==
LOC: HO.US 07:57
PROVIDERS: PCP Internal Medicine; Visit Provider Internal Medicine
DX: N20.0 Calculus of kidney (principal); R79.89 Other specified abnormal findings of blood chemistry
CPT/HCPCS: 76700

== ENCOUNTER 2024-05-23 21:53 | Emergency (ER) | payer OTHER, SELFPAY ==
--- NOTE | ~2024-05-23 | XR_ITS ---
EXAMINATION: XR WRIST, RIGHT CLINICAL INFORMATION: Pain COMPARISON: None available. TECHNIQUE: PA, lateral, and oblique views of the right wrist. FINDINGS: There is an avulsion fracture likely involving the triquetrum graft. No other fractures or dislocations are seen. The bones and soft tissues are otherwise unremarkable. No additional fracture. Alignment is anatomic with normal joint spaces. No erosions or abnormal soft tissue calcifications. XR/XR wrist RT min 3V IMPRESSION: Avulsion fracture likely involving the triquetrum.
[2024-05-23 22:15] VITALS: BP 172/81; PULSE 78; RESP 18; TEMP 36.6; O2SAT 94; BMI 37.3
[2024-05-24 03:10] VITALS: BP 184/94; PULSE 72; RESP 16; TEMP 36.7; O2SAT 96
--- NOTE | 2024-05-24 03:25 | ED_ITS ---
HPI - Extremity Problem General Chief complaint: Extremity Injury, Upper Stated complaint: rt wrist swollen painful no inj Time Seen by Provider: 05/24/24 03:25 History of Present Illness ED Provider: Andrei JAIMES Narrative: The patient is a 58-year-old woman who says she has had worsening right wrist pain over the last several days. At first she said she had not injured her wrist but later she acknowledged that she had had an episode of lightheadedness last Saturday or Saturday (5 or 6 days ago) when she might have injured the wrist in a hyperflexion injury. She comes to the emergency room tonight because she has had significantly worsening pain over the last 48 hours. She says she is tried to get into see an orthopedist, her primary care doctor, and she also went to an urgent care. Related Data Previous Rx's ?Medication ?Instructions ?Recorded albuterol sulfate 90 mcg/actuation 2 puff inhalation Q4-6H PRN 10/19/22 aerosol inhaler shortness of breath or wheezing #6.7 grams fluticasone propionate 50 1 spray intranasal DAILY #16 grams 02/16/23 mcg/actuation nasal spray,suspension (Flonase Allergy Relief) lorazepam 0.5 mg tablet 0.5 mg PO DAILY PRN anxiety 7 days 03/26/23 #7 tabs rtxncxgqle-lcbyndxwjxyma-pzbwffxu 1 cap PO Q8H pain 4 days #12 caps 11/13/23 50 mg-300 mg-40 mg capsule (Fioricet) lidocaine 5 % topical patch 1 patch topical DAILY PRN pain 11/13/23 (scale score 7-10) #30 ea verapamil 240 mg 24 hr 240 mg PO DAILY 90 days #90 caps 03/25/24 capsule,extended release cholecalciferol (vitamin D3) 125 125 mcg PO DAILY #90 tabs 03/26/24 mcg (5,000 unit) tablet (Vitamin D3) oxycodone 5 mg tablet 5 mg PO BID PRN pain #6 tabs 03/26/24 morphine 15 mg immediate release 15 mg PO Q6H PRN pain #14 tabs 05/24/24 tablet Allergies Allergy/AdvReac Type Severity Reaction Status Date / Time hydrochlorothiazide Allergy Severe SWELLING Verified 05/23/24 22:24 [HYDROCHLOROTHIAZIDE] lisinopril [LISINOPRIL] Allergy Intermediate FACIAL Verified 05/23/24 22:24 SWELLING peanut [Peanut] Allergy Mild HIVES Verified 05/23/24 22:24 Review of Systems Review of Systems: Yes all other systems are reviewed and are negative FOR[facility]LY [facility] Past Medical History Medical History Nasal congestion History of ductal carcinoma in situ (DCIS) of breast Cough Anxiety Migraine HTN (hypertension) LUDA (obstructive sleep apnea) Degenerative cervical disc Asthma Obesity (BMI 30-39.9) LFT elevation Vitamin D deficiency Hypercholesterolemia Surgical History Hx of tubal ligation History of lumpectomy of right breast History of tonsillectomy H/O section Family History Family History Brother Myocardial infarct Paternal Grandfather Myocardial infarct Mother Lymphoma Breast CA Father Alcohol abuse Brother LUCA (generalized anxiety disorder) Family/Other Breast CA Other FHx: mental illness Social History Social History Household Members: Spouse and Children Housing: House Are you a primary child care provider to a significant other at home: No Do you presently have visiting nurse or other home services: No Alcohol intake: never Patient Tobacco Use Status: Never used Tobacco Smoked in Last 30 Days: No e-Cigarette/Vaping Use: Never Used Second Hand Smoke Exposure: No Use of substances other than those prescribed or required for medical reasons: No Advance Directives: No Advance Directives Information Provided: No Do you have a plan to hurt others: No Plan service: No Current occupational status: employed Cognitive needs: No Hearing needs: No Vision needs: No Physical Exam Vital Signs: Vital Signs: Last Vital Signs Temp 97.9 F 05/24/24 04:22 Pulse 70 05/24/24 04:22 Resp 16 05/24/24 04:22 BP 180/98 H 05/24/24 04:22 Pulse Ox 97 05/24/24 04:22 O2 Del Method Room Air 05/24/24 04:22 BMI result Body Mass Index 37.3 Const: Other: The patient is awake and alert. She looks somewhat uncomfortable. HEENT: Other: The appearance of the face is unremarkable. Mucous membranes are moist. Resp: Effort & Inspection: normal respiratory effort Auscultation: clear to auscultation bilaterally Cardio: Other: No murmur Rate: regular rate Rhythm: regular rhythm Heart sounds: S1 normal heart sound present and S2 normal heart sound present Skin: Other: There is some mild soft tissue swelling to the dorsum of the right wrist. This is more pronounced on the ulnar side of the dorsum of the wrist. No erythema. Neuro: Other: The patient is awake and alert with a normal mental status. She has intact sensation in the right hand. Extrem: Other: The patient has some soft tissue swelling on the ulnar side of the dorsum of the right wrist. There is also some warmth. There is no erythema. She has point tenderness in the region of the soft tissue swelling on the ulnar side of the dorsum of the right wrist. She is able to move the wrist moderately. Medications Administered Discontinued Medications Generic Name Dose Route Start Last Admin Trade Name Freq PRN Reason Stop Dose Admin Acetaminophen 975 mg 05/24/24 03:52 05/24/24 04:06 Acetaminophen 325 Mg Tablet PO 05/24/24 03:53 975 mg ONCE ONE Administration Ibuprofen 600 mg 05/24/24 03:52 05/24/24 04:06 Ibuprofen 600 Mg Tablet PO 05/24/24 03:53 600 mg ONCE ONE Administration Morphine Sulfate 15 mg 05/24/24 03:53 05/24/24 04:06 Morphine Sulfate Immed Release 15 Mg Tablet PO 05/24/24 03:54 15 mg ONCE ONE Administration Medical Decision Making Medical Decision Making [facility] Narrative: The patient is a 58-year-old woman who is here for evaluation of right wrist pain. She seems to have very focal pain on the ulnar side of the dorsum of the right wrist. This correlates with an x-ray finding of an avulsion fracture of the triquetral bone. The patient initially denied having had any trauma but later admitted to an episode that could have been an injury associated with the right wrist. My suspicion is that she has an acute fracture from the episode she describes that occurred several days ago. I do not have a good alternate explanation for her symptoms or the x-ray findings. The patient was placed in an ulnar gutter splint for comfort. She apparently has a relationship with [facility] and will be referred to [facility] for further care Procedures Orthopedic Splinting/Casting Injury #1: Side: right Upper Extremity Injury Location: wrist Upper Extremity Immobilizer: ulnar gutter Additional Comments: Splint was applied with cast padding, Orthoglass, and Pradip bandages Discharge Plan Discharge Clinical Impression: Chip fracture of triquetral bone of right wrist Patient Disposition: Home, Self-Care Instructions: Wrist Fracture in Adults (ED) Additional Instructions: Your x-ray shows a small avulsion fracture from one of the small bones in the wrist. This bone is called the triquetral bone. Please keep your wrist splinted with a splint provided. You may take 2 extra-strength acetaminophen up to 3 times a day. I have also sent a prescription for morphine tablets to your pharmacy which you may also use as needed for pain. Please contact your orthopedic office on Saturday morning to see if you can get an earlier appointment than you were already given. Explain that you had an x-ray that shows a small fracture of your triquetral bone in your right wrist. As much as you can keep the wrist elevated. You may use ice as well. Return to the emergency room if significantly worse. Prescriptions: New morphine 15 mg tablet 15 mg PO Q6H PRN (Reason: pain) Qty: 14 0RF Rx Instructions: Partial Fill upon patient request. No Action fluticasone propionate [Flonase Allergy Relief] 50 mcg/actuation spray,suspension 1 spray intranasal DAILY Qty: 16 0RF Rx Instructions: administer into each nostril lorazepam 0.5 mg tablet 0.5 mg PO DAILY PRN (Reason: anxiety) 7 Days Qty: 7 0RF cawbgwgpzs-knskuwivvfdvo-eadk [Fioricet] 50-300-40 mg capsule 1 cap PO Q8H 4 Days Qty: 12 0RF lidocaine 5 % adhesive patch,medicated 1 patch topical DAILY PRN (Reason: pain (scale score 7-10)) Qty: 30 0RF Rx Instructions: leave on most painful area for up to 12 hrs. Neck pain verapamil 240 mg capsule,ext rel. pellets 24 hr 240 mg PO DAILY 90 Days Qty: 90 2RF albuterol sulfate 90 mcg/actuation HFA aerosol inhaler 2 puff inhalation Q4-6H PRN (Reason: shortness of breath or wheezing) Qty: 6.7 0RF cholecalciferol (vitamin D3) [Vitamin D3] 125 mcg (5,000 unit) tablet 125 mcg PO DAILY Qty: 90 2RF oxycodone 5 mg tablet 5 mg PO BID PRN (Reason: pain) Qty: 6 0RF Rx Instructions: Partial Fill upon patient request. Referrals: [facility] [Provider Group] (triquetral avulsion fracture) Stand Alone Forms: Work/School Release Interventions: ED Discharge Assessment Last Done: 05/24/24 04:22 Discharge Date/Time: 05/24/24 04:23 Print Language: Maori
[2024-05-24] MEDS: Morphine Sulfate Immed Release 15 MG TABLET PO (04:06)
[2024-05-24] MEDS: Ibuprofen 600 MG TABLET PO (04:06)
[2024-05-24] MEDS: Acetaminophen 325 MG TABLET 975 MG PO (04:06)
[2024-05-24 04:14] VITALS: BP 180/98; PULSE 70; RESP 16; TEMP 36.6; O2SAT 97
[2024-05-24 04:22] VITALS: BP 180/98; PULSE 70; RESP 16; TEMP 36.6; O2SAT 97
== END 2024-05-24 04:23 | disposition home or self-care (01) ==
PROVIDERS: Emergency Provider Emergency Medicine; PCP Internal Medicine
DX: S62.111A Displaced fracture of triquetrum [cuneiform] bone, right wrist, initial encounter for closed fracture (principal); X58.XXXA Exposure to other specified factors, initial encounter; Y93.9 Activity, unspecified; Y92.9 Unspecified place or not applicable; Y99.9 Unspecified external cause status; R42 Dizziness and giddiness; M25.531 Pain in right wrist; I10 Essential (primary) hypertension; Z79.899 Other long term (current) drug therapy
CPT/HCPCS: 29125; 73110; 99283; 99284

== ENCOUNTER 2024-05-27 12:58 | Outpatient (AMB) | payer OTHER, SELFPAY ==
--- OUTSIDE RECORDS SUMMARY | 2024-05-27 13:00 | XMS_ITS | Continuity of Care Document ---
Author Organization [facility] Address [address] [place] [address]- Care Team Providers Care Graduate Studies Dean Name Role Phone Po Tara REED Primary Care Physician [place] [facility] [place]23 - 01/11/24 [facility] [address], [place] [address] Allergies, Adverse Reactions, Alerts Substance Reaction Severity Status Peanuts Active Medications anastrozole 1 mg oral tablet 1 tablet = 1 mg, By Mouth, Daily, # 30 tablet, 2 Refills, Maintenance, 05/22/23 11:26:00 EDT, Tablet, [facility]/pharmacy #[id number], Partial fill upon patient request if the prescription is for a schedule II opioid drug., 159, cm, 05/22/23 9:01:00 EDT, Height, 9... Start Date: 05/22/23 Status: Ordered exemestane 25 mg oral tablet 1 tablet = 25 mg, By Mouth, Daily, # 90 tablet, 0 Refills, Maintenance, 02/19/23 15:56:00 EDT, Tablet, Partial fill upon patient request if the prescription is for a schedule II opioid drug. Start Date: 02/19/23 Status: Ordered Levofloxacin Tablet Every 24 hours, Maintenance, 07/18/15 18:21:04 Start Date: 07/18/15 Status: Ordered verapamil 240 mg oral capsule, extended release 1 capsule = 240 mg, By Mouth, Daily, # 30 capsule, 0 Refills, Maintenance, 11/22/22 9:38:00 EST, CRC[facility]ule, Partial fill upon patient request if the prescription is for a schedule II opioid drug. 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 Migraine Confirmed Active Obstructive sleep apnea Confirmed Active Restless leg syndrome Confirmed Active Severe obesity (BMI 35.0-39.9) with comorbidity Confirmed Active Social History Social History Type Response Sex Female Patient Care team information Care Team Personnel Name: Tara Cardenas MD Position: Reference Physician Member Role: PCP Address: Address: [address] [place] [address]- Care Team Related Persons Name: SARTHAK MORLEY Address: [place] [address] [place] [address] Name: TOMMY MARMOLEJO Address: home [address] [place] [address] Name: CLIVE BARNES Address: home [address] [place] [address]
--- OUTSIDE RECORDS SUMMARY | 2024-05-27 13:00 | XMS_ITS | Continuity of Care Document ---
Author Organization [facility] Address [address] [place] [address]- Care Team Providers Care Analytics Lead Name Role Phone Devan Faustin III, MD Primary Care Physician [phone] En[place] [facility] [place] Date(s): 12/31/22 - 01/30/23 [facility] [address], [place] [address] Allergies, Adverse Reactions, Alerts Substance Reaction Severity Status Peanuts Active Medications Levofloxacin Tablet Every 24 hours, Maintenance, 07/18/15 [...] Active Hypertension Confirmed Active Insomnia Confirmed Active Migraine Confirmed Active Obstructive sleep apnea Confirmed Active Restless leg syndrome Confirmed Active Severe obesity (BMI 35.0-39.9) with comorbidity Confirmed Active Social History Social History Type Response Sex Female Patient Care team information Care Team Personnel Name: Devan Faustin III, MD Position: S Ambulatory (view) Member Role: PCP Address: Address: [address] [place] [address] Care Team Related Persons Name: SARTHAK FAUSTIN Address: home [address] [place] [address] Name: TOMMY MARMOLEJO Address: home [address] [facility] [address] [place] [address] Name: CLIVE BARNES Address: home [address] [place] [address]
--- OUTSIDE RECORDS SUMMARY | 2024-05-27 13:00 | XMS_ITS | Continuity of Care Document ---
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 (Discharge Diagnosis) - 12/12/23 Discharge Disposition: A-D/C Home Attending Physician: Harrison Danielle DO Admitting Physician: Harrison Danielle DO Referring Physician: Tara Cardenas MD Allergies, Adverse Reactions, Alerts Substance Reaction Severity Status Peanuts Active Medications anastrozole 1 mg oral tablet 1 tablet = 1 mg, By Mouth, Daily, # 30 tablet, 2 Refills, Maintenance, 05/22/23 11:26:00 EDT, Tablet, [facility][id number], Partial fill upon patient request if [...] obesity (BMI 35.0-39.9) with comorbidity Confirmed Active Diagnosis Diagnosis Type Effective Dates Health Status Clinical Service Informant 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 Discharge Diagnosis 12/12/23 Vital Signs Most recent to oldest [Reference Range]: 1 Height 159 cm (12/12/23 9:09 AM) Weight 95.7 kg (12/12/23 9:09 AM) Oxygen Saturation [94-100 %] 96 % (12/12/23 9:09 AM) Pulse Rate [55-90 bpm] 76 bpm (12/12/23 9:09 AM) Body Mass Index [18.5-24.99 kg/m2] 37.85 kg/m2 *>HHI* (12/12/23 9:09 AM) Blood Pressure [90-138/55-84 mm Hg] 166/ 99mm Hg *H* (12/12/23 9:09 AM) Temperature [96.8-100.4 DegF] 98.2 DegF (12/12/23 9:09 AM) Mode of Delivery (Oxygen) Room air (12/12/23 9:09 AM) Blood pressure sites Arm, left (12/12/23 9:09 AM) Temperature Route Oral (12/12/23 9:09 AM) Dry Weight 95.7 kg (12/12/23 9:09 AM) Weight Obtained Via Standing scale (12/12/23 9:09 AM) Dry Weight Obtained Via Standing scale (12/12/23 9:09 AM) Social History Social History Type Response Sex Female Note * Brooklynn Singer: PERFORM, SIGN, VERIFY Event Display: Patient Education/Instruction Authored Date: [id number] [facility] *Heme/Onc Adult Clinical Summary Name TITO MORLEY Age 58 Years 1965 PCP Tara Cardenas MD PCP Visit Date 11/26/2023 08:25:00 Additional Instructions: Scheduled Appointments?? Future Appointments ?[facility] ?[address]??[place],??[place],??[address] ?Phone:??[phone]?Fax:??-- ?Appt. Date:??05/01/2024?4:00 PM ?Scheduled Provider:??[facility] 1 Follow-Up Instructions ?? With: Address: When: Harrison Danielle [address] [place] [address] [place] [address] Business (1) In 12/23/2024 Diagnosis Medications: Please continue your medications until treatment is completed or stopped by your provider. Discuss any questions related to medications with your provider. Medications to Continue with No Changes These medications were not printed or sent to your pharmacy Anastrozole (anastrozole 1 mg oral tablet) 1 tab(s) Oral Daily. Refills: 2. Next Dose: Exemestane (exemestane 25 mg oral tablet) 1 tab(s) Oral Daily. Next Dose: Levofloxacin (Levofloxacin Tablet) every 24 hours. Next Dose: Verapamil (verapamil 240 mg oral capsule, extended release) 1 capsule Oral Daily. Next Dose: Allergy Info:?? Peanuts Medications Given This Visit Future Orders ?No future orders Vital Signs Height 159 cm Weight 95.7 kg BMI 37.85 kg/m2 Blood Pressure 166 mm Hg/99 mm Hg Temperature 98.2 DegF Pulse Rate 76 bpm Respiratory Rate 02 Sat Mode of Delivery 96 %/Room air You can now view a summary of your hospital visit from the comfort of your home through a free online portal called [employer]. [employer] is a website that allows you to securely view your medical information including discharge summary, medications and follow-up visits. ??You can alsosend a secure electronic message to your doctor???s office to request appointments, renew medications or just ask a question. You can enroll at [email or web address] or register during your next office visit. Disclaimer:?? The information provided is of a general nature and is intended to be used in conjunction with the recommendations and advice of your health care practitioner. ??Every effort has been made to ensure that the information provided is accurate and complete at the time it is provided to you however, as your needs change, or, as new ??information becomes available, different or additional instructions may be required. If you have questions, please consult with your primary care provider or pharmacist, as appropriate. ??This information is not intended to serve as substitution for assessment and evaluation by a qualified health care provider. If you do not have a primary care provider, you may find a [facility] provider by calling [facility] WorkCast Link at [phone]. [facility], in keeping with [facility] guidance, no longer requires face masks for staff, patientsor visitors in most situations. Similar to time spent indoors at other locations, there is the chance that you were exposed to respiratory viruses during your time with us (such as flu or COVID-19).? If you develop symptoms concerning for a viral respiratory infection, please seek testing (and treatment if indicated) from your medical provider or home test kit. For information about the plan of care including goals and instructions for your diagnosis, please see the patient education orders section of this document. Patient Education Materials?? The content of this educational material or handout may have been modified, supplemented, or adapted from its original content and format to support your individualized medical care. Patient Care team information Care Team Personnel Name: Tara Cardenas MD Position: Reference Physician Member Role: PCP Address: Address: [address] [place] [address] [place] [address]- Care Team Related Persons Name: SARTHAK MORLEY Address: home [address] [place] [address] Name: TOMMY MARMOLEJO Address: home [address] [facility] [place] [address] Name: CLIVE BARNES Address: home [address] [place] [address]
--- OUTSIDE RECORDS SUMMARY | 2024-05-27 13:00 | XMS_ITS | Continuity of Care Document ---
Author Organization [facility] Address [address] [place] [address]- Care Team Providers Care Spectacle Truer Name Role Phone Devan Faustin III, MD Primary Care Physician [phone] Encounter [facility] [place] Date(s): 02/18/23 - 03/20/23 [facility] [place], [place] [address] Attending Physician: Valerie Valle Admitting Physician: Valerie Valle Referring Physician: Valerie Valle Allergies, Adverse Reactions, Alerts Substance Reaction Severity Status Peanuts Active Medications exemestane 25 mg oral tablet 1 tablet [...] Personnel Name: Devan Faustin III, MD Position: Reference Physician Member Role: PCP Address: Address: [address] [place] [address] [place] [address]- Care Team Related Persons Name: SARTHAK FAUSTIN Address: home [address] [place] [address] Name: TOMMY MARMOLEJO Address: home [address] [facility] [place] [address] Name: CLIVE BARNES Address: home [address] [place] [address]
--- OUTSIDE RECORDS SUMMARY | 2024-05-27 13:00 | XMS_ITS | Continuity of Care Document ---
Author Organization [facility] Address [address] [place] [address]- Care Team Providers Care Author'S Agent Name Role Phone Po Tara REED Primary Care Physician [phone] Encounter [facility] [place] Date(s): 11/26/23 - 12/26/23 [facility] [place], [place] [address] Attending Physician: Valerie Valle Admitting Physician: AdmValerie olvera Referring Physician: AdmtrValerie Allergies, Adverse Reactions, Alerts Substance Reaction Severity Status Peanuts Active Medications anastrozole 1 mg oral tablet 1 tablet = 1 mg, By Mouth, Daily, # 30 tablet, 2 Refills, Maintenance, 05/22/23 11:26:00 EDT, Tablet, [facility]/pharmacy #[id number], Partial fill upon patient request if [...] Reference Physician Member Role: PCP Address: Address: [address] [place] [address] [place] [address]- Care Team Related Persons Name: SARTHAK MORLEY Address: home [address] [place] [address] Name: TOMMY MARMOLEJO Address: home [address] [facility] [place] [place] [address] Name: CLIVE BARNES Address: home [address] [place] [address]
--- OUTSIDE RECORDS SUMMARY | 2024-05-27 13:00 | XMS_ITS | Continuity of Care Document ---
Author Organization [facility] Address [address] [place] [address]- Care Team Providers Care Power Press Tender Name Role Phone Po Tara REED Primary Care Physician [phone] [place] [facility] [place](s): 08/22/23 - 09/21/23 [facility] [place], [place] [address] Attending Physician: Valerie Valle Admitting Physician: Valerie Valle Referring Physician: AdmtrValerie Allergies, Adverse Reactions, Alerts Substance Reaction Severity Status Peanuts Active Medications anastrozole 1 mg oral tablet 1 tablet = 1 mg, By Mouth, Daily, # 30 tablet, 2 Refills, Maintenance, 05/22/23 11:26:00 EDT, Tablet, [facility]/pharmacy #[id number], Partial fill upon patient request if [...] Reference Physician Member Role: PCP Address: Address: [address] [place] [address] [place] [address]- Care Team Related Persons Name: SARTHAK MORLEY Address: home [address] [place] [address] Name: TOMMY MARMOLEJO Address: home [address] [facility] [place] [address] Name: CLIVE BARNES Address: home [address] [place] [address]
--- OUTSIDE RECORDS SUMMARY | 2024-05-27 13:00 | XMS_ITS | Continuity of Care Document ---
Author Organization [facility] Address [address] [place] [address]- Care Team Providers Care Account Manager Employee Benefits Name Role Phone Po Tara REED Primary Care Physician [phone] [facility] [place] Date(s): 10/28/21 - 10/28/[address] [address]- Encounter Diagnosis Reactive lymphadenopathy(Final) - 10/28/21 Discharge Disposition: A-D/C Home Attending Physician: Power Cotto MD Admitting Physician: Power Cotto MD Referring Physician: Not on Staff, Referring MD Allergies, Adverse Reactions, Alerts Substance Reaction Severity Status Peanuts Active Medications Ambien 5 mg oral tablet 1 tablet = 5 mg, By Mouth, Daily at bedtime, PRN for sleep, for 30 days, may INITIALLY cause AM sedation. Beware sleep walking, # 30 tablet, 5 Refills, Acute 07/09/17 7:00:00, 01/10/17 7:00:00, Tablet Start Date: 01/10/17 Stop Date: 07/09/17 Status: Ordered Ambien 5 mg oral tablet 1 tablet = 5 mg, By Mouth, Daily at bedtime, PRN for sleep, may INITIALLY cause AM sedation. Bewaresleep walking, # 30 tablet, 0 Refills, Acute 01/10/17 7:00:00, 01/09/16 14:12:11, Tablet Start Date: 01/09/16 Stop Date: 01/10/17 Status: Ordered HYDROcodone 5 mg/Acetaminophen 325 mg Tablet 1 tablet, Tablet, By Mouth, Once, STAT, 10/28/21 13:09:00 EST, Stop date 10/28/21 13:09:00 EST Start Date: 10/28/21 Stop Date: 10/28/21 Status: Completed Levofloxacin Tablet Every 24 hours, Maintenance, 07/18/15 18:21:04 Start Date: 07/18/15 Status: Ordered lisinopril 20 mg oral tablet 1 tablet = 20 mg, By Mouth, Daily, # 30 tablet, 0 Refills, Maintenance, 06/13/15 15:13:24, Tablet Start Date: 06/13/15 Status: Ordered propranolol 60 mg oral tablet 1 tablet = 60 mg, By Mouth, 2 times a day, 0 Refills, Maintenance, 06/13/15 15:13:06 Start Date: 06/13/15 Status: Ordered venlafaxine 37.5 mg oral tablet 1 tablet = 37.5 mg, By Mouth, 2 times a day, 0 Refills, Maintenance, 06/13/15 15:12:13 Start Date: 06/13/15 Status: Ordered Problem List Condition Effective Dates Status Health Status Inform ant Anxiety(Confirmed) Active Other disorders of iron metabolism(Confirmed) Active Fibromyalgia(Confirmed) Active Hyperlipidemia(Confirmed) Active Hypersomnia(Confirmed) Active Hypertension(Confirmed) Active Insomnia(Confirmed) Active Migraine(Confirmed) Active Obese class I(Confirmed) Active Obstructive sleep apnea(Confirmed) Active Restless leg syndrome(Confirmed) Active Results Radiology Reports * Exam Date Time Procedure Performing Provider Status 10/28/21 1:27 PM Chest 2 Views Frontal and Lat Sierra Preston (Verified) Notes: (Chest 2 Views Frontal and Lat) Reason For Exam: Chest Pain;Other: RESULT: Chest 2 Views Frontal and Lat Chest 2 Views Frontal and Lat Hx of Present Illness: lump under left arm painful and swollen not red no obvious bite unclear boundaries pain started a few days ago swelling started today; Reason: Other:; Chest Pain; Clinical Question(s): Other: COMPARISON: None. FINDINGS: LINES AND TUBES: None. LUNGS AND PLEURA: Clear lungs. Normal pulmonary vascularity. No pleural effusion. No pneumothorax. HEART, MEDIASTINUM AND CAROL ANN: Heart is normal in size. Normal upper mediastinal and hilar contour. BONES AND SOFT TISSUES: No acute abnormality. IMPRESSION: No acute abnormality. WSN: [id number] Ordering Physician: Krysta Hinton Dictated By: Bari Padilla MD Dictated Date/Time: 10/28/21 1:30 pm Reviewed By: Bari Padilla MD Signed By: Bari Padilla MD Signed Date/Time: 10/28/21 1:30 pm Transcribed By: STORM Transcribed Date/Time: 10/28/21 1:29 pm Vital Signs Most recent to oldest [Reference Range]: 1 2 3 Height 160 cm (10/28/21 2:47 PM) 160 cm (10/28/21 12:56 PM) 160 cm (10/28/21 12:21 PM) Weight 88 kg (10/28/21 2:47 PM) 88 kg (10/28/21 12:56 PM) 88 kg (10/28/21 12:21 PM) Oxygen Saturation [94-100 %] 99 % (10/28/21 2:47 PM) 99 % (10/28/21 12:21 PM) Pulse Rate [55-90 bpm] 73 bpm (10/28/21 2:47 PM) 68 bpm (10/28/21 12:21 PM) Body Mass Index [18.5-24.99] 34.38 *>HHI* (10/28/21 2:47 PM) 34.38 *>HHI* (10/28/21 12:21 PM) 34.38 *>HHI* (10/28/21 12:15 PM) Blood Pressure [90-138/55-84 mm Hg] 143/72mm Hg *H* (10/28/21 2:47 PM) 168/88mm Hg *H* (10/28/21 12:21 PM) Respiratory Rate [16-30 br/min] 18 br/min (10/28/21 2:47 PM) 16 br/min (10/28/21 1:13 PM) 18 br/min (10/28/21 12:21 PM) Temperature [96.8-100.4 DegF] 98.0 DegF (10/28/21 2:47 PM) 98.2 DegF (10/28/21 12:21 PM) Mode of Delivery (Oxygen) Room air (10/28/21 2:47 PM) Room air (10/28/21 12:21 PM) Blood pressure sites Arm, right (10/28/21 12:21 PM) Temperature Route Oral (10/28/21 2:47 PM) Oral (10/28/21 12:21 PM) Weight Obtained Via Patient/family state d (10/28/21 12:21 PM)
--- OUTSIDE RECORDS SUMMARY | 2024-05-27 13:00 | XMS_ITS | Continuity of Care Document ---
Author Organization [facility] Address [address] [place] [address]- Care Team Providers Care Electronic Device Monitor Name Role Phone Po Tara REED Primary Care Physician [phone] En[place] [facility] [place] Date(s): 12/12/23 - 01/11/24 [facility] [address] [place], [place] [address] Allergies, Adverse Reactions, Alerts Substance Reaction Severity Status Peanuts Active Medications anastrozole 1 mg oral tablet 1 tablet = 1 mg, By Mouth, Daily, # 30 tablet, 2 Refills, Maintenance, 05/22/23 11:26:00 EDT, Tablet, [facility]/pharmacy #[id number], Partial fill upon patient request [...] Physician Member Role: PCP Address: Address: [address] [place] [address]- Care Team Related Persons Name: SARTHAK MORLEY Address: home [address] [place] [address] Name: TOMMY MARMOLEJO Address: home [address] [place] [address] Name: CLIVE BARNES Address: home [address] [place] [address]
--- OUTSIDE RECORDS SUMMARY | 2024-05-27 13:00 | XMS_ITS | Continuity of Care Document ---
Author Organization [facility] for C ancer Care Address [address] [place] [address]- Care Team Providers Care Utility Systems Repairer Operator Name Role Phone Devan Faustin III, MD Primary Care Physician Encounter [facility] Date(s): 02/18/23 - 04/21/23 [facility] Care [address], [place] [address] Discharge Disposition: A-D/C Home Attending Physician: Harrison Danielle DO Admitting Physician: Harrison Danielle DO Referring Physician: Devan Faustin III, MD Allergies, Adverse Reactions, Alerts Substance Reaction [...] obesity (BMI 35.0-39.9) with comorbidity Confirmed Active Vital Signs Most recent to oldest [Reference Range]: 1 Height 159 cm (02/19/23 2:58 PM) Weight 91.0 kg (02/19/23 2:58 PM) Oxygen Saturation [94-100 %] 99 % (02/19/23 2:58 PM) Pulse Rate [55-90 bpm] 65 bpm (02/19/23 2:58 PM) Body Mass Index [18.5-24.99 kg/m2] 36 kg /m2 *>HHI* (02/19/23 2:58 PM) Blood Pressure [90-138/55-84 mm Hg] 158/ 79mm Hg *H* (02/19/23 2:58 PM) Temperature [96.8-100.4 DegF] 97.7 DegF (02/19/23 2:58 PM) Mode of Delivery (Oxygen) Room air (02/19/23 2:58 PM) Blood pressure sites Arm, left (02/19/23 2:58 PM) Temperature Route Temporal (02/19/23 2:58 PM) Dry Weight 91.0 kg (02/19/23 2:58 PM) Weight Obtained Via Standing scale (02/19/23 2:58 PM) Dry Weight Obtained Via Standing scale (02/19/23 2:58 PM) Social History Social History Type Response Sex Female Note * Rajni Grier: PERFORM, SIGN, VERIFY Event Display: Patient Education/Instruction Authored Date: [id number] [facility] *Heme/Onc Adult Clinical Summary Name TITO FAUSTIN Age 57 Years 1965 PCP Ramin BAIRD MD, Devan Hernandez PCP Visit Date 02/18/2023 14:11:00 Additional Instructions: Scheduled Appointments?? Future Appointments ?[facility]RAD ?[address]??[place],??[place],??[address] ?Phone:??[phone]?Fax:??-- ?Appt. Date:??03/16/2023?9:45 AM ?Scheduled Provider:??[facility] 3D Mammo Rm 4 Follow-Up Instructions ?? With: Address: When: Harrison Danielle [address] [place] [address] [place] [address] Business (1) 05/22/2023 9:00 AM Diagnosis Medications: Please continue your medications until treatment is completed or stopped by your provider. Discuss any questions related to medications with your provider. Medications to Continue with No Changes These medications were not printed or sent to your pharmacy Levofloxacin (Levofloxacin Tablet) every 24 hours. Next Dose: Verapamil (verapamil 240 mg oral capsule, extended release) 1 capsule Oral Daily. Next Dose: Allergy Info:?? Peanuts Medications Given This Visit Future Orders ?No future orders Vital Signs Height 159 cm Weight 91.0 kg BMI 36 kg/m2 Blood Pressure 158 mm Hg/79 mm Hg Temperature 97.7 DegF Pulse Rate 65 bpm Respiratory Rate 02 Sat Mode of Delivery 99 %/Room air You can now view a summary of your hospital visit from the comfort of your home through a free online portal called Browsy. Browsy is a website that allows you to securely view your medical information including discharge summary, medications and follow-up visits. ??You can alsosend a secure electronic message to your doctor???s office to request appointments, renew medications or just ask a question. You can enroll at [email or web address] or register during your next office [...] primary care provider, you may find a [facility] provider by calling [facility] at [phone]. For information about the plan of care including goals and instructions for your diagnosis, please see the patient education orders section of this document. Patient Education Materials?? The content of this educational material or handout may have been modified, supplemented, or adapted from its original content and format to support your individualized medical care. Patient Care team information Care Team Personnel Name: Ramin BAIRD MD, Devan Hernandez Position: Reference Physician Member Role: PCP Address: Address: [address] [place] [address]- Care Team Related Persons Name: SARTHAK FAUSTIN Address: home [address] [place] [address] Name: TOMMY MARMOLEJO Address: home [address] [facility] [place] [address] Name: CLIVE BARNES Address: home [address] [place] [address]
--- OUTSIDE RECORDS SUMMARY | 2024-05-27 13:00 | XMS_ITS | Continuity of Care Document ---
Author Organization [facility] for C ancer Care Address [address] [place] [address]- Care Team Providers Care Youth Coordinator Name Role Phone Po Tara REED Primary Care Physician Encounter [facility] Date(s): 12/12/23 - 01/11/24 [facility] [address] [place], [place] [address] Allergies, Adverse Reactions, Alerts Substance Reaction Severity Status Peanuts Active Medications anastrozole 1 mg oral tablet 1 tablet = 1 mg, By Mouth, Daily, # 30 tablet, 2 Refills, Maintenance, 05/22/23 11:26:00 EDT, Tablet, [facility]/pharmacy #[id number], Partial fill upon patient request [...] Physician Member Role: PCP Address: Address: [address] [place] [address]- Care Team Related Persons Name: SARTHAK MORLEY Address: home [address] [place] [address] Name: TOMMY MARMOLEJO Address: home [address] [facility] [address] Name: CLIVE BARNES Address: home [address] [place] [address]
--- OUTSIDE RECORDS SUMMARY | 2024-05-27 13:00 | XMS_ITS | Continuity of Care Document ---
Author Organization [facility] for C ancer Care Address [address] [place] [address]- Care Team Providers Care Shake Loader Name Role Phone Ramin BAIRD MD, Devan Hernandez Primary Care Physician Encounter [facility] Date(s): 10/16/22 - 01/22/23 [facility] Care [address] [place], [place] [address] Discharge Disposition: A-D/C Home Attending Physician: Harrison [...] oldest [Reference Range]: 1 Height 159 cm (11/22/22 9:20 AM) Weight 88.6 kg (11/22/22 9:20 AM) Oxygen Saturation [94-100 %] 99 % (11/22/22 9:20 AM) Pulse Rate [55-90 bpm] 83 bpm (11/22/22 9:20 AM) Body Mass Index [18.5-24.99 kg/m2] 35.05 kg/m2 *>HHI* (11/22/22 9:20 AM) Blood Pressure [90-138/55-84 mm Hg] 148/ 102mm Hg *H* (11/22/22 9:20 AM) Temperature [96.8-100.4 DegF] 97.5 DegF (11/22/22 9:20 AM) Blood pressure sites Arm, left (11/22/22 9:20 AM) Temperature Route Oral (11/22/22 9:20 AM) Dry Weight 88.6 kg (11/22/22 9:20 AM) Social History Social History Type Response Sex Female CT Skeletal system Multisection for bone density * Event Display: Bone Density Authored Date: Patient Care team information Care Team Personnel Name: Ramin BAIRD MD, Devan Hernandez Position: [facility] Ambulatory (view) Member Role: PCP Address: Address: [address] [place] [address]- Care Team Related Persons Name: SARTHAK MORLEY Address: home [address] [place] [address] Name: TOMMY MARMOLEJO Address: home [address] [facility] [place] [address] Name: CLIVE BARNES Address: home [address] [place] [address]
--- OUTSIDE RECORDS SUMMARY | 2024-05-27 13:00 | XMS_ITS | Continuity of Care Document ---
Author Organization [facility] C ancer Care Address [address] [place] [address]- Care Team Providers Care Station Chief Name Role Phone Po Tara REED Primary Care Physician [phone] Encounter [facility] Date(s): 05/17/23 - 06/16/23 [facility] Cancer Care [facility] [place], [place] [address] Attending Physician: Valerie Valle Admitting Physician: AdmValerie olvera Referring Physician: AdmtrValerie Allergies, Adverse Reactions, Alerts Substance Reaction Severity Status Peanuts Active Medications anastrozole 1 mg oral tablet 1 tablet = 1 mg, By Mouth, Daily, # 30 tablet, 2 Refills, Maintenance, 05/22/23 11:26:00 EDT, Tablet, [facility]/pharmacy #[id number], Partial fill upon patient request if [...] Reference Physician Member Role: PCP Address: Address: [address] [place] [address] [place] [address]- Care Team Related Persons Name: SARTHAK MORLEY Address: home [address] [place] [address] Name: TOMMY MARMOLEJO Address: home [address] [facility] [place] [address] Name: CLIVE BARNES Address: home [address] [place] [address]
--- OUTSIDE RECORDS SUMMARY | 2024-05-27 13:00 | XMS_ITS | Continuity of Care Document ---
Author Organization [facility] C ancer Care Address [address] [place] [address]- Care Team Providers Care Truck Cleaner Name Role Phone Po Tara REED Primary Care Physician Encounter [facility] Date(s): 08/26/23 - 09/25/23 [facility] Care [address] [place], [place] [address] Allergies, Adverse Reactions, Alerts Substance Reaction Severity Status Peanuts Active Medications anastrozole 1 mg oral tablet 1 tablet = 1 mg, By Mouth, Daily, # 30 tablet, 2 Refills, Maintenance, 05/22/23 11:26:00 EDT, Tablet, [facility]/pharmacy #[id number], Partial fill upon patient request [...] Reference Physician Member Role: PCP Address: Address: [address] [place] [address]- Care Team Related Persons Name: SARTHAK MORLEY Address: home [address] [place] [address] Name: TOMMY MARMOLEJO Address: home [address] [place] [address] Name: CLIVE BARNES Address: home [address] [place] [address]
--- OUTSIDE RECORDS SUMMARY | 2024-05-27 13:00 | XMS_ITS | Continuity of Care Document ---
Author Organization [facility] for C ancer Care Address [address] [place] [address]- Care Team Providers Care Carbide Powder Processor Name Role Phone Po Tara REED Primary Care Physician [phone] En[facility] Date(s): 08/23/23 - 09/22/23 [facility] [address] [place], [place] [address] Allergies, Adverse Reactions, Alerts Substance Reaction Severity Status Peanuts Active Medications anastrozole 1 mg oral tablet 1 tablet = 1 mg, By Mouth, Daily, # 30 tablet, 2 Refills, Maintenance, 05/22/23 11:26:00 EDT, Tablet, [facility]/pharmacy #[id number], Partial fill upon patient [...] Reference Physician Member Role: PCP Address: Address: [address] [place] [address]- Care Team Related Persons Name: SARTHAK MORLEY Address: home [address] [place] [address] Name: TOMMY MARMOLEJO Address: home [address] [place] [address] Name: CLIVE BARNES Address: home [address] [place] [address]
--- OUTSIDE RECORDS SUMMARY | 2024-05-27 13:00 | XMS_ITS | Continuity of Care Document ---
Author Organization [facility] ancer Care Address [address] [place] [address]- Care Team Providers Care Senior Net Application Developer Name Role Phone Po Tara REED Primary Care Physician [place] [facility] Date(s): 10/16/22 - 11/15/22 [facility] Care [facility] [place], [place] [address] Attending Physician: Valerie Valle Admitting Physician: AdmtrValerie Referring Physician: Admtr, Ar8 Allergies, Adverse Reactions, Alerts Substance Reaction Severity [...] Date: 01/09/16 Stop Date: 01/10/17 Status: Ordered Levofloxacin Tablet Every 24 hours, [...] Date: 06/13/15 Status: Ordered Problem List Condition Confirmation Course Effective Dates Status H ealth Status Informant Anxiety Confirmed Active Other disorders of iron metabolism Confirmed Active Fibromyalgia Confirmed Active Hyperlipidemia Confirmed Active Hypersomnia Confirmed Active Hypertension Confirmed Active Insomnia Confirmed Active Migraine Confirmed Active Obese class I Confirmed Active Obstructive sleep apnea Confirmed Active Restless leg syndrome Confirmed Active Social History Social History Type Response Sex Female Patient Care team information Care Team Personnel Name: Tara Cardenas MD Position: Reference Physician Member Role: PCP Address: Address: [address] [place] [address]- Care Team Related Persons Name: SARTHAK MORLEY Address: home [address] [facility] [place] Name: TOMMY MARMOLEJO Address: home [address] [facility] [place] [place] Name: ALBERT HAYWOOD Address: home [address] [place] [address]
--- OUTSIDE RECORDS SUMMARY | 2024-05-27 13:00 | XMS_ITS | Continuity of Care Document ---
Author Organization [facility] C ancer Care Address [address] [place] [address]- Care Team Providers Care Plant Breeder Scientist Name Role Phone Tara Cardenas MD Primary Care Physician [phone] Encounter [facility] Date(s): 08/22/23 - 10/23/23 [facility] Care [address] [place], [place] [address] Discharge Disposition: A-D/C Home Attending Physician: Harrison Danielle DO Admitting Physician: Harrison Danielle DO Referring Physician: Tara Cardenas MD Allergies, Adverse Reactions, Alerts Substance Reaction Severity Status Peanuts Active Medications anastrozole 1 mg oral tablet 1 tablet = 1 mg, By Mouth, Daily, # 30 tablet, 2 Refills, Maintenance, 05/22/23 11:26:00 EDT, Tablet, [facility]/pharmacy #[id number], Partial fill upon patient request if [...] oldest [Reference Range]: 1 Height 159 cm (08/23/23 9:10 AM) Weight 91.8 kg (08/23/23 9:10 AM) Oxygen Saturation [94-100 %] 100 % (08/23/23 9:10 AM) Pulse Rate [55-90 bpm] 79 bpm (08/23/23 9:10 AM) Body Mass Index [18.5-24.99 kg/m2] 36.31 kg/m2 *>HHI* (08/23/23 9:10 AM) Blood Pressure [90-138/55-84 mm Hg] 156/ 99mm Hg *H* (08/23/23 9:10 AM) Temperature [96.8-100.4 DegF] 98.5 DegF (08/23/23 9:10 AM) Mode of Delivery (Oxygen) Room air (08/23/23 9:10 AM) Blood pressure sites Arm, right (08/23/23 9:10 AM) Temperature Route Oral (08/23/23 9:10 AM) Dry Weight 91.8 kg (08/23/23 9:10 AM) Weight Obtained Via Standing scale (08/23/23 9:10 AM) Dry Weight Obtained Via Standing scale (08/23/23 9:10 AM) Social History Social History Type Response Sex Female Patient Care team information Care Team Personnel Name: Tara Cardenas MD Position: Reference Physician Member Role: PCP Address: Address: [address] [place] [address]- Care Team Related Persons Name: SARTHAK MORLEY Address: home [address] [place] [address] Name: TOMMY MARMOLEJO Address: home [address] [place] [address] Name: CLIVE BARNES Address: home [address] [place] [address]
--- OUTSIDE RECORDS SUMMARY | 2024-05-27 13:00 | XMS_ITS | Continuity of Care Document ---
Author Organization [facility] ter Address [address] [place] [address]- Care Team Providers Care Reeling And Tubing Machine Operator Name Role Phone Devan Faustin III, MD Primary Care Physician [phone] Encounter [facility] Date(s): 01/14/23 - 04/15/[address] [address] Attending Physician: Harrison Danielle DO Admitting Physician: Harrison Danielle DO Referring Physician: Harrison Danielle DO Allergies, Adverse Reactions, Alerts Substance Reaction Severity [...] Reference Physician Member Role: PCP Address: Address: [address] [facility] [place] [address]- Care Team Related Persons Name: SARTHAK FAUSTIN Address: home [address] [place] [address] Name: TOMMY MARMOLEJO Address: home [address] [facility] [address] Name: CLIVE BARNES Address: home [address] [place] [address]
--- OUTSIDE RECORDS SUMMARY | 2024-05-27 13:00 | XMS_ITS | Continuity of Care Document ---
Author Organization [facility] for C ancer Care Address [address] [place] [address]- Care Team Providers Care Foam Rubber Fabricator Name Role Phone Po Tara REED Primary Care Physician Encounter [facility] Date(s): 08/23/23 - 09/22/23 [facility] [address] [place], [place] [address] Allergies, Adverse Reactions, Alerts Substance Reaction Severity Status Peanuts Active Medications anastrozole 1 mg oral tablet 1 tablet = 1 mg, By Mouth, Daily, # 30 tablet, 2 Refills, Maintenance, 05/22/23 11:26:00 EDT, Tablet, [facility]/pharmacy #[id number], Partial fill upon patient request [...] team information Care Team Personnel Name: Tara aCrdenas MD Position: Reference Physician Member Role: PCP Address: Address: [address] [place] [address]- Care Team Related Persons Name: SARTHAK MORLEY Address: [address] [place] [address] Name: TOMMY MARMOLEJO Address: home [address] [place] [address] Name: CLIVE BARNES Address: home [address] [place] [address]
--- OUTSIDE RECORDS SUMMARY | 2024-05-27 13:00 | XMS_ITS | Continuity of Care Document ---
Author Organization [facility] for C ancer Care Address [address] [place] [address]- Care Team Providers Care Timing Adjuster Name Role Phone Devan Faustin III, MD Primary Care Physician [phone] Encounter [facility] Date(s): 11/23/22 - 12/23/22 [facility] Care [address] [place], [place] [address] Allergies, Adverse Reactions, Alerts Substance [...] Ambulatory (view) Member Role: PCP Address: Address: [address] [place] [address] Care Team Related Persons Name: SARTHAK FAUSTIN Address: home [address] [place] [address] Name: TOMMY MARMOLEJO Address: home [address] [facility] [place] [address] Name: CLIVE BARNES Address: home [address] [place] [address]
--- OUTSIDE RECORDS SUMMARY | 2024-05-27 13:00 | XMS_ITS | Continuity of Care Document ---
Author Organization [facility] for C ancer Care Address [address] [place] [address]- Care Team Providers Care Material Carrier Name Role Phone Devan Faustin III, MD Primary Care Physician [phone] Encounter [facility] Date(s): 02/04/23 - 03/06/23 [facility] Care [address] [place], [place] [address] Allergies, Adverse Reactions, Alerts Substance Reaction Severity [...] Physician Member Role: PCP Address: Address: [address] [place] [address]- [place] Care Team Related Persons Name: SARTHAK FAUSTIN Address: home [address] [place] [address] Name: TOMMY MARMOLEJO Address: home [address] [facility] [place] [address] Name: CLIVE BARNES Address: home [address] [place] [address]
--- OUTSIDE RECORDS SUMMARY | 2024-05-27 13:00 | XMS_ITS | Continuity of Care Document ---
Author Organization [facility] for C ancer Care Address [address] [place] [address]- Care Team Providers Care Guide Domestic Tour Name Role Phone Tara Cardenas MD Primary Care Physician [place] [facility] Date(s): 05/17/23 - 07/22/23 [facility] Care [address] [place], [place] [address] Discharge Disposition: A-D/C Home Attending Physician: Harrison Danielle DO Admitting Physician: Harrison Danielle DO Referring Physician: Tara Cardenas MD Allergies, Adverse Reactions, Alerts Substance Reaction Severity Status Peanuts Active Medications anastrozole 1 mg oral tablet 1 tablet = 1 mg, By Mouth, Daily, # 30 tablet, 2 Refills, Maintenance, 05/22/23 11:26:00 EDT, Tablet, [facility]/pharmacy #[id number], Partial fill upon patient request if [...] oldest [Reference Range]: 1 Height 159 cm (05/22/23 9:01 AM) Weight 91.5 kg (05/22/23 9:01 AM) Oxygen Saturation [94-100 %] 100 % (05/22/23 9:01 AM) Pulse Rate [55-90 bpm] 71 bpm (05/22/23 9:01 AM) Body Mass Index [18.5-24.99 kg/m2] 36.19 kg/m2 *>HHI* (05/22/23 9:01 AM) Blood Pressure [90-138/55-84 mm Hg] 167/ 94mm Hg *H* (05/22/23 9:01 AM) Temperature [96.8-100.4 DegF] 98.0 DegF (05/22/23 9:01 AM) Blood pressure sites Arm, left (05/22/23 9:01 AM) Temperature Route Oral (05/22/23 9:01 AM) Dry Weight 91.5 kg (05/22/23 9:01 AM) Social History Social History Type Response Sex Female Note * Brooklynn Singer: PERFORM, SIGN, VERIFY Event Display: Patient Education/Instruction Authored Date: [id number] [facility] *Heme/Onc Adult Clinical Summary Name TITO MORLEY Age 57 Years 1965 PCP Po Tara REED PCP Visit Date 05/17/2023 13:13:00 Additional Instructions: Scheduled Appointments?? Future Appointments ?[facility]??RAD ?[address]??[place],??[place],??[address] ?Phone:??[phone]?Fax:??-- ?Appt. Date:??10/30/2023?4:00 PM ?Scheduled Provider:??[facility] Mammo Rm 1 Follow-Up Instructions ?? With: Address: When: Harrison Danielle [address] [place] [address] [place] [address] Business (1) In 27 weeks 11/27/2023 Diagnosis Medications: Please continue your medications until treatment is completed or stopped by your provider. Discuss any questions related to medications with your provider. Medications to Continue with No Changes These medications were not printed or sent to your pharmacy Exemestane (exemestane 25 mg oral tablet) 1 tab(s) Oral Daily. Next Dose: Levofloxacin (Levofloxacin Tablet) every 24 hours. Next Dose: Verapamil (verapamil 240 mg oral capsule, extended release) 1 capsule Oral Daily. Next Dose: Allergy Info:?? Peanuts Medications Given This Visit Future Orders ?No future orders Vital Signs Height 159 cm Weight 91.5 kg BMI 36.19 kg/m2 Blood Pressure 167 mm Hg/94 mm Hg Temperature 98.0 DegF Pulse Rate 71 bpm Respiratory Rate 02 Sat Mode of Delivery 100 %/ You can now view a summary of your hospital visit from the comfort of your home through a free online portal called Iconicfuture. Iconicfuture is a website that allows you to securely view your medical information including discharge summary, medications and follow-up visits. ??You can alsosend a secure electronic message to your doctor???s office to request appointments, renew medications or just ask a question. You can enroll at [email or web address] or register during your next office visit. [...] primary care provider, you may find a [facility] provider by calling [facility] at [phone]. For information about the plan of care [...] Physician Member Role: PCP Address: Address: [address] [place] [facility] [place] - Care Team Related Persons Name: SARTHAK MORLEY Address: home [address] [place] Name: TOMMY MARMOLEJO Address: home [address] [facility] [place] Name: CLIVE BARNES Address: home [address] [place]
[2024-05-27 13:09] VITALS: BMI 37.1
--- NOTE | 2024-05-27 13:09 | A.OFFVIS_ITS ---
Vital Signs 05/27/24 13:09 Height 5 ft 3 in Weight 209 lb 7.026 oz BMI 37.1 Intake Visit Reasons: vaginal discharge Label Tacker Required: No Information Interpreted: non-clinical & clinical Director Sanitation Bureau: Director Sanitation Bureau Present Accompanied by: Self / Same As Patient Allergies hydrochlorothiazide [HYDROCHLOROTHIAZIDE] Allergy (Severe, Verified 05/27/24 13:10) SWELLING lisinopril [LISINOPRIL] Allergy (Intermediate, Verified 05/27/24 13:10) FACIAL SWELLING peanut [Peanut] Allergy (Mild, Verified 05/27/24 13:10) HIVES Post menopausal: Yes HPI Comments Details: Presenting complaining of vulvovaginal itching irritation and burning, no vaginal discharge or bleeding, no other associated symptoms PFSH Medical History Nasal congestion History of ductal carcinoma in situ (DCIS) of breast Cough Anxiety Migraine HTN (hypertension) LUDA (obstructive sleep apnea) Degenerative cervical disc Asthma Obesity (BMI 30-39.9) LFT elevation Vitamin D deficiency Hypercholesterolemia Surgical History Hx of tubal ligation History of lumpectomy of right breast History of tonsillectomy H/O section Family History Brother Myocardial infarct Paternal Grandfather Myocardial infarct Mother Lymphoma Breast CA Father Alcohol abuse Brother LUCA (generalized anxiety disorder) Family/Other Breast CA Other FHx: mental illness Social History Household Members: Spouse and Children Housing: House Are you a primary home health care respiratory therapist to a significant other at home: No Do you presently have visiting nurse or other home services: No Alcohol intake: never Patient Tobacco Use Status: Never used Tobacco e-Cigarette/Vaping Use: Never Used Second Hand Smoke Exposure: No service: No Current occupational status: employed Cognitive needs: No Hearing needs: No Vision needs: No Female Reproductive History Menstrual Age of Menarche: 12 Review of Systems Const All systems reviewed & are unremarkable except as noted in HPI and below Physical Exam Vital Signs: BMI result Body Mass Index 37.1 General: Yes no CVA tenderness External Female Exam: normal external appearance and normal appearance of the urethra Speculum Exam - Vagina: normal appearance of the vagina, normal palpation, no lesions and no masses Speculum Exam - Cervix: normal appearance of the cervix, normal palpation, no lesions, no masses and nontender Bimanual exam- vagina & uterus: normal bimanual exam, normal palpation, uterine size normal, normal palpation, uterine shape normal, No Cervical tenderness present and non-tender Bimanual Exam- Adnexa, other: normal adnexae Back/Spine/Pelvis Back: no CVA tenderness Assessment & Plan Assessment & Plan (1) Vulvovaginitis: Code(s): N76.0 - Acute vaginitis Category: Medical Plan: Bacterial Vaginosis panel taken, Terazol 0.8% q.h.s. for 3 days was sent to the patient's pharmacy. The patient was instructed to schedule a 2 week follow-up appointment will reinspection in 2 call if symptoms don't improve in 48 hours. Medications: New clotrimazole-betamethasone 1-0.05 % 1 appl topical BID 5 days 45 grams 0RF terconazole 0.8% 1 appful vaginal BEDTIME 3 days 20 grams 0RF Coding Level of Care Code Est Pt Level 3 (63577) Diagnoses Vulvovaginitis N76.0
== END 2024-05-27 13:29 | disposition home or self-care (01) ==
LOC: HO.HWS 12:58
PROVIDERS: PCP Internal Medicine; Visit Provider Obstetrics & Gynecology
DX: N76.0 Acute vaginitis (principal)
CPT/HCPCS: 99213

== ENCOUNTER 2024-05-27 12:58 | Outpatient (REF) | payer OTHER, SELFPAY ==
[2024-05-28 12:46] LABS: Bacterial Vaginosis PCR NEGATIVE (Negative); Candida Group PCR NOT DETECTED (Not Detect); Candida glab krusei PCR NOT DETECTED (Not Detect); Trichomonas vaginalis PCR NOT DETECTED (Not Detect)
== END 2024-05-27 12:59 | disposition home or self-care (01) ==
LOC: HO.LAB 12:58
PROVIDERS: PCP Internal Medicine; Visit Provider Obstetrics & Gynecology
DX: N76.0 Acute vaginitis (principal)
CPT/HCPCS: 0352U

== ENCOUNTER 2024-06-11 08:16 | Outpatient (AMB) | payer OTHER, SELFPAY ==
--- NOTE | 2024-06-11 08:16 | A.OFFVIS_ITS ---
Vital Signs 06/11/24 08:20 Height 5 ft 3 in Weight 209 lb 7.026 oz BMI 37.1 Intake Visit Reasons: 2 weeks follow up vulvovaginitis Crew Boat Operator Required: No Information Interpreted: non-clinical & clinical Medical Appointment Scheduler: Medical Appointment Scheduler Present (Kira Valdez LEVAR) Accompanied by: Self / Same As Patient Allergies hydrochlorothiazide [HYDROCHLOROTHIAZIDE] Allergy (Severe, Verified 06/11/24 08:20) SWELLING lisinopril [LISINOPRIL] Allergy (Intermediate, Verified 06/11/24 08:20) FACIAL SWELLING peanut [Peanut] Allergy (Mild, Verified 06/11/24 08:20) HIVES Patient : Yes HPI Comments Details: Presenting for follow-up regarding vulvovaginitis. The patient took Terazol 0.8% q.h.s. for 3 days with Lotrisone cream b.i.d. for 5 days, symptoms has improved markedly/resolved. No additional concerns. [facility] Medical History Nasal congestion History of ductal carcinoma in situ (DCIS) of breast Cough Anxiety Migraine HTN (hypertension) LUDA (obstructive sleep apnea) Degenerative cervical disc Asthma Obesity (BMI 30-39.9) LFT elevation Vitamin D deficiency Hypercholesterolemia Surgical History Hx of tubal ligation History of lumpectomy of right breast History of tonsillectomy H/O section Family History Brother Myocardial infarct Paternal Grandfather Myocardial infarct Mother Lymphoma Breast CA Father Alcohol abuse Brother LUCA (generalized anxiety disorder) Family/Other Breast CA Other FHx: mental illness Social History Household Members: Spouse and Children Housing: House Are you a primary rn transitional care to a significant other at home: No Do you presently have visiting nurse or other home services: No Alcohol intake: never Patient Tobacco Use Status: Never used Tobacco e-Cigarette/Vaping Use: Never Used Second Hand Smoke Exposure: No Patient : Yes service: No Current occupational status: employed Cognitive needs: No Hearing needs: No Vision needs: No Female Reproductive History Menstrual Age of Menarche: 12 Review of Systems Const All systems reviewed & are unremarkable except as noted in HPI and below Physical Exam Vital Signs: BMI result Body Mass Index 37.1 General: Yes no CVA tenderness External Female Exam: normal external appearance and normal appearance of the urethra Speculum Exam - Vagina: normal appearance of the vagina, normal palpation, no lesions and no masses Speculum Exam - Cervix: normal appearance of the cervix, normal palpation, no lesions, no masses and nontender Bimanual exam- vagina & uterus: normal bimanual exam, normal palpation, uterine size normal, normal palpation, uterine shape normal, No Cervical tenderness present and non-tender Bimanual Exam- Adnexa, other: normal adnexae Back/Spine/Pelvis Back: no CVA tenderness Assessment & Plan Assessment & Plan (1) Vulvovaginitis: Comment: resolved Code(s): N76.0 - Acute vaginitis Category: Medical Plan: Discussed with the patient the finding on physical exam, within normal. Instructions given the patient to call in case of recurrence of her symptoms, nonhealing ulcers, hard areas or any other concerns. All questions answered, the patient verbalized understanding Coding Level of Care Code Est Pt Level 3 (24534) Diagnoses Vulvovaginitis N76.0
[2024-06-11 08:20] VITALS: BMI 37.1
== END 2024-06-11 08:35 | disposition home or self-care (01) ==
PROVIDERS: PCP Internal Medicine; Visit Provider Obstetrics & Gynecology
DX: N76.0 Acute vaginitis (principal)
CPT/HCPCS: 99213

== ENCOUNTER → 2024-06-11 08:16 | Outpatient (BNVA) | payer OTHER, SELFPAY | PROVIDERS: PCP Internal Medicine; Visit Provider Obstetrics & Gynecology ==

== ENCOUNTER 2024-07-02 10:57 | Outpatient (REF) | payer OTHER, SELFPAY ==
--- NOTE | ~2024-07-02 | MM_ITS ---
EXAMINATION: BONE DENSITOMETRY CLINICAL INDICATION: Age-related osteoporosis without current pathological fracture. COMPARISON: Baseline BD dated 05/17/2022. TECHNIQUE: Using a Smartaxi DXA System (software version: 13.1) manufactured by [employer], dual-energy x-ray absorptiometry was performed of the lumbar spine and left hip. The images are of good technical quality. Summary results are attached. FINDINGS: LEFT FEMUR, NECK: Current: BMD 1.036 g/cm2, Z-score 0.7, T-score 0.0, normal. Baseline: BMD 1.049 g/cm2. LEFT FEMUR, TOTAL: Current: BMD 1.124 g/cm2, Z-score 1.2, T-score 0.9, normal, 2.6% increase from baseline (<5% change is not significant). Baseline: BMD 1.096 g/cm2. AP SPINE L1-L4: Current: BMD 1.233 g/cm2, Z-score 0.8, T-score 0.4, normal, 4.0% decrease from baseline (<5% change is not significant). Baseline: BMD 1.285 g/cm2. IDENTIFIED RISK FACTORS: Menopause, history of fracture (adult). HISTORY OF FRACTURE: Wrist. MEDICATIONS: Calcium supplements or multivitamin, vitamin D. MM/XR DEXA axial skeleton IMPRESSION: 1. DIAGNOSIS: Normal bone density based on the lowest T-score value of 0.0 in the femoral neck applying World Health Organization criteria. 2. 10-YEAR FRACTURE RISK PREDICTION, FRAX: According to the guidelines, FRAX calculation should only be performed on patients in the osteopenia bone density category. Therefore, FRAX was not performed on this patient. 3. Treatment Recommendations: NOF guidelines recommend consideration for treatment in postmenopausal women and men age 50 and older presenting with the following: -A hip or vertebral (clinical or morphometric) fracture. -T-score less than or equal to -2.5 at the femoral neck or spine after appropriate evaluation to exclude secondary causes. -Low bone mass at the hip or spine and a 10-year fracture probability by FRAX of greater than or equal to 3% for hip fracture or greater than or equal to 20% for major osteoporotic fracture based on the [place] adapted WHO algorithm. 4. Other Recommendations: All treatment decisions require clinical judgment and consideration of individual patient factors, including patient preferences, comorbidities, previous drug use, risk factors not captured in the FRAX model (e.g. frailty, falls, vitamin D deficiency, increased bone turnover, interval significant decline in bone density) and possible under or overestimation of fracture risk by FRAX. FUTURE SCAN RECOMMENDATION: People with diagnosed cases of osteoporosis or at high risk for fracture should have regular bone mineral density tests. For patients eligible for Medicare, routine testing is allowed once every 2 years. The testing frequency can be increased to one year for patients who have rapidly progressing disease, those who are receiving or discontinuing medical therapy to restore bone mass, or have additional risk factors.
== END 2024-07-02 10:58 | disposition home or self-care (01) ==
LOC: HO.MAMMO 10:57
PROVIDERS: PCP Internal Medicine; Visit Provider Internal Medicine
DX: M81.0 Age-related osteoporosis without current pathological fracture (principal); M25.531 Pain in right wrist
CPT/HCPCS: 77080

== ENCOUNTER 2024-08-05 07:39 | Outpatient (REF) | payer OTHER, SELFPAY ==
[2024-08-05 07:55] LABS: MANUAL DIFF FLAG NO
[2024-08-05 08:28] LABS: Basophils Percent Auto 0.6 % (0-2); Eosinophils Absolute Auto 0.1 X10*3/uL (0.0-0.4); Eosinophils Percent Auto 1.2 % (0-4); Hematocrit 40.7 % (37.0-47.0); Hemoglobin 13.8 g/dl (12.0-16.0); Imm Gran Abs Auto 0.04 X10*3/uL (0.00-0.03); Imm Gran Pct Auto 0.6 % (0.0-0.4); Lymphocytes Absolute Auto 1.7 X10*3/uL (1.2-4.9); Lymphocytes Percent Auto 26.4 % (20-40); Mean Corpuscular HGB Conc 33.9 g/dl (31.0-35.0); Mean Corpuscular Hemoglobin 29.3 pg (27.0-33.0); Mean Corpuscular Volume 86.4 fL (80.0-98.0); Monocytes Absolute Auto 0.5 X10*3/uL (0.1-1.2); Monocytes Percent Auto 7.3 % (2-11); Neutrophils Absolute Auto 4.2 x10*3/uL (2.0-8.3); Neutrophils Percent Auto 63.9 % (45-73); Platelet Count 367 X10*3/uL (160-400); Red Blood Count 4.71 X10*6/uL (4.20-5.50); Red Cell Distribution Width 12.7 % (11.0-16.0); White Blood Count 6.6 X10*3/uL (4.8-10.8)
[2024-08-05 08:35] LABS: Estimated Average Glucose 117 mg/dL; Hemoglobin A1c % 5.7 % (<6.0)
[2024-08-05 09:15] LABS: Alanine Aminotransferase 36 U/L (0-31); Albumin Level 4.5 g/dL (3.5-5.0); Alkaline Phosphatase 120 U/L (39-117); Anion Gap 11 (12-20); Aspartate Amino Transferase 22 U/L (5-31); Bilirubin Total 0.5 mg/dL (0.0-1.0); Blood Urea Nitrogen 16 mg/dL (9-16); Calcium 9.6 mg/dL (8.4-10.2); Carbon Dioxide 26 mmol/L (22-29); Chloride 108 mmol/L (96-108); Cholesterol 222 mg/dL (<200); Estimated Glomerular Filt Rate > 60; Glucose Random 104 mg/dL (60-115); HDL Cholesterol 45 mg/dL (>40); LDL Cholesterol Calculated 160 mg/dL (<100); Potassium 4.4 mmol/L (3.3-5.1); Sodium 141 mmol/L (135-145); Total Protein 7.9 g/dL (6.5-8.0); Triglycerides 85 mg/dL (<150)
[2024-08-05 09:22] LABS: Free T4 (Free Thyroxine) 0.93 ng/dL (0.71-1.85); Thyroid Stimulating Hormone 2.36 uIU/mL (0.32-4.0); Vitamin D 25-OH Total 34.8 ng/mL (>30)
[2024-08-05 09:38] LABS: Folate 11.2 ng/mL (> or = 4.0); Vitamin B12 564 pg/mL (200-900)
[2024-08-05 09:50] LABS: Appearance Urine Cloudy; Color Urine Yellow; Glucose Urine UA Negative (Negative); Leukocyte Esterase Urine Small (1+) (Negative); Nitrite Urine Negative (Negative); PH 5.5 (5.0-9.0); UMIC TRIGGER UACC YES; Urine Blood Negative (Negative); Urine Ketones Trace mg/dL (Negative); Urine Protein 30 (1+) mg/dL (Neg-Trace)
[2024-08-05 10:05] LABS: Bacteria Urine 2+ (None Seen); Hyaline Casts Urine 0-2 /LPF (0-2); RBC Urine 0-2 /HPF (0-2); UACC Culture Trigger YES; WBC Urine 0-5 /HPF (0-5)
== END 2024-08-05 07:40 | disposition home or self-care (01) ==
LOC: HO.LAB 07:39
PROVIDERS: PCP Internal Medicine; Visit Provider Internal Medicine
DX: R73.01 Impaired fasting glucose (principal); E78.00 Pure hypercholesterolemia, unspecified; R30.0 Dysuria
CPT/HCPCS: 36415; 80053; 80061; 81001; 82306; 82607; 82746; 83036; 84439; 84443; 85025; 87086

== ENCOUNTER 2024-08-06 14:57 | Outpatient (AMB) | payer OTHER, SELFPAY ==
[2024-08-06 14:58] VITALS: BP 138/88; PULSE 78; O2SAT 96; BMI 35.2
--- NOTE | 2024-08-06 14:58 | A.OFFPC_ITS ---
Vital Signs 08/06/24 14:58 Height 5 ft 3 in Weight 199 lb BMI 35.2 BP 138/88 Blood Pressure Location Lt brachial Position Sitting Pulse 78 Pulse Source Pulse Oximeter Pulse Oximetry (%) 96 Oxygen Delivery Method Room Air Intake Visit Reasons: 3 Month Follow Up Bosom Presser Required: No Accompanied by: Self / Same As Patient Allergies hydrochlorothiazide [HYDROCHLOROTHIAZIDE] Allergy (Severe, Verified 08/06/24 14:59) SWELLING lisinopril [LISINOPRIL] Allergy (Intermediate, Verified 08/06/24 14:59) FACIAL SWELLING peanut [Peanut] Allergy (Mild, Verified 08/06/24 14:59) HIVES Medication List - Last Reconciled 08/06/24 by Tara Givens Po, albuterol sulfate 90 mcg/actuation 2 puffs inhalation Q4-6H PRN [id number]-wgikdjakvpmry-rqjr 50-300-40 mg (Fioricet) 1 cap PO Q8H 4 days clotrimazole-betamethasone 1-0.05 % 1 appl topical BID 5 days fluticasone propionate 50 mcg/actuation (Flonase Allergy Relief) 1 spray intranasal DAILY lidocaine 5% 1 patch topical DAILY PRN lorazepam 0.5 mg PO DAILY PRN 7 days terconazole 0.8% 1 appful vaginal BEDTIME 3 days verapamil ER 240 mg PO DAILY 90 days Tobacco use date assessed: 08/06/24 Dental Screening Dental Screen Date: 08/06/24 Did you have a dental visit in the last 12 months?: No Did you have a dental problem in the last 6 months where you did not have access to dental care?: No Was dental information given to patient?: No HPI 3 Month Follow Up HPI Details 58-year-old obese female()noted 10 lb we ight loss with right breast cancer impaired glucose tolerance obstructive sleep apnea fatty liver asthma hypertension hypercholesterolemia coming in for follow-up. Last seen in 04/06/2024. Patient's colonoscopy is up-to-date 11/22/2019 years mammogram is due. Review of the notes ER visit in 05/24/2024 wrist pain had an episode of lightheadedness and question of right wrist injury. X-ray showing avulsion fracture triquetrum right wrist. Patient has also gone to the Urgent Center having UTI and sinusitis. Patient had an ultrasound of the abdomen in April 2024 having hepatomegaly showing hepatic steatosis and right renal pole calculus 5 mm. cast for 1 month and physical therapy [facility] Medical History Nasal congestion History of ductal carcinoma in situ (DCIS) of breast Cough Anxiety Migraine HTN (hypertension) LUDA (obstructive sleep apnea) Degenerative cervical disc Asthma Obesity (BMI 30-39.9) LFT elevation Vitamin D deficiency Hypercholesterolemia Surgical History Hx of tubal ligation History of lumpectomy of right breast History of tonsillectomy H/O section Family History Brother Myocardial infarct Paternal Grandfather Myocardial infarct Mother Lymphoma Breast CA Father Alcohol abuse Brother LUCA (generalized anxiety disorder) Family/Other Breast CA Other FHx: mental illness Social History Household Members: Spouse and Children Housing: House Are you a primary resident care aid to a significant other at home: No Do you presently have visiting nurse or other home services: No Alcohol intake: never Patient Tobacco Use Status: Never used Tobacco e-Cigarette/Vaping Use: Never Used Second Hand Smoke Exposure: No service: No Current occupational status: employed Cognitive needs: No Hearing needs: No Vision needs: No Female Reproductive History Menstrual Age of Menarche: 12 Questionnaire PHQ-9 Over the last 2 weeks, how often have you been bothered by any of the following problems? 1. Little interest or pleasure in doing things: not at all 2. Feeling down, depressed, or hopeless: not at all 3. Trouble falling or staying asleep, or sleeping too much: not at all 4. Feeling tired or having little energy: not at all 5. Poor appetite or overeating: not at all 6. Feeling bad about yourself - or that you are a failure or have let yourself or your family down: not at all 7. Trouble concentrating on things, such as reading the newspaper or watching television: not at all 8. Moving or speaking so slowly that other people could have noticed. Or the opposite - being so fidgety or restless that you have been moving around a lot more than usual: not at all 9. Thoughts that you would be better off or of hurting yourself in some way: not at all Total score: 0 Depression Screening Interpretation: Negative Depression Screening Done: Yes 29777 - PHQ-9 Billing: Yes Source: Developed by Drs. Oral Ricks, Silvia Freed, Hal Harrison and colleagues, with an educational filippo from [email or web address]. Thrive Questionnaire Date Thrive assessed: 08/06/24 I am a: Patient What is your living situation today?: I have a steady place to live Within the past 12 months, did the food you bought not last and you didn't have the money to get more?: Never true Within the past 12 months, did you worry whether your food would run out before you got money to buy more?: Never true Do you have trouble paying for medicines?: No Do you have trouble getting transportation to medical appointments?: No Do you have trouble paying your heating and electricity bill?: No Do you have trouble taking care of your child, family member or friend?: No Do you have trouble with day-to-day activities such as bathing, preparing meals, shopping, managing finances, etc.?: No Are you currently unemployed and looking for a job?: No Are you interested in more education?: No Please select the resources that you would like help with: None Currently or been in a relationship where the following occur: No concerns reported THRIVE Score: 0 AUDIT C Alcohol Use Questionnaire (AUDIT-C) 1. How often do you have a drink containing alcohol?: Monthly or less 2. How many drinks containing alcohol do you have on a typical day when you are drinking?: 1 or 2 3. How often do you have six or more drinks on one occasion?: Never Total Score: 1 LUCA-7 AMB Questionnaire LUCA-7 Date LUCA - 7 assessed: 08/06/24 Feeling nervous, anxious, or on edge: 0 = Not at all Not being able to stop or control worryin = Not at all Worrying too much about different things: 0 = Not at all Trouble relaxin = Not at all Being so restless that it is hard to sit still: 0 = Not at all Becoming easily annoyed or irritable: 0 = Not at all Feeling afraid as if something awful might happen: 0 = Not at all Total LUCA-7 score (0-4 normal; 5-9 mild; 10-14 moderate; 15-21 severe): 0 Source: Developed by Drs. Oral Ricks, Silvia Freed, Hal Harrison and colleagues, with an educational filippo from [email or web address]. LUCA-7 Assessment Billing LUCA-7 Assessment Tool: LUCA-7 Assessment 30011 Physical exam (Primary Care) Vital Signs: Last Vital Signs Pulse 78 08/06/24 14:58 BP 138/88 08/06/24 14:58 Pulse Ox 96 08/06/24 14:58 Oxygen Delivery Method Room Air 08/06/24 14:58 BMI result Body Mass Index 35.2 Tobacco/Smoking Status: Tobacco use Status Tobacco use date assessed 08/06/24 08/06/24 15:00 Patient Tobacco Use Status Never used Tobacco 08/06/24 15:00 e-Cigarette/Vaping Use Never Used 08/06/24 15:00 PHQ-9: PHQ-9 Score PHQ-9: Total score 0 08/06/24 15:00 Depression Screening Interpretation: Negative Thrive Assessment: Date of Thrive Assessment Date Thrive assessed 08/06/24 08/06/24 15:00 Currently or been in a relationship where the following occur: No concerns reported Const General: alert; No acute distress Eyes Conjunctivae: conjunctivae normal Resp Auscultation: clear to auscultation bilaterally Cardio Rate: regular rate Rhythm: regular rhythm GI Inspection: Yes normal to inspection Extrem General: Yes normal to inspection and No edema Assessment and Plan Assessment & Plan (1) Right renal stone: Comment: 05/07/2024Hepatomegaly, 18.0 cm. Increased hepatic parenchymal heterogeneity and echogenicity could be associated with hepatocellular disease/hepatic steatosis and substantially limits visualization. Correlation with liver function tests and clinical exam recommended to determine further management. 2. Right renal 5 mm mid pole calculus. No hydronephrosis. Code(s): N20.0 - Calculus of kidney Plan: Keep well hydrated (2) Impaired fasting blood sugar: Code(s): R73.01 - Impaired fasting glucose Plan: Decrease the amount of carbohydrate intake, pasta, bread, rice and potatoes are all sugar and that is aside from all the sweet stuff, remember that fruits are good but they are Sweet also. (3) Fatty liver: Code(s): K76.0 - Fatty (change of) liver, not elsewhere classified Plan: Low-fat diet and exercise (4) Generalized anxiety disorder: Code(s): F41.1 - Generalized anxiety disorder Plan: Continue with present medication (5) Hypertension: Code(s): I10 - Essential (primary) hypertension Qualifiers: Hypertension type: primary hypertension Qualified Code(s): I10 - Essential (primary) hypertension Plan: Continue with blood pressure medication. Decrease salt intake and exercise on verapamil 240 mg once a day (6) Asthma: Code(s): J45.909 - Unspecified asthma, uncomplicated Plan: Continue with albuterol inhaler as needed (7) Hypercholesterolemia: Code(s): E78.00 - Pure hypercholesterolemia, unspecified Plan: Avoid fried foods, chicken skin, eggs, butter margarine, pastries and meat. Be it pork or beef they have a lot of cholesterol LDL goal of less than 130 and triglyceride of less than 150. (8) Obstructive sleep apnea: Comment: decline treatment Code(s): G47.33 - Obstructive sleep apnea (adult) (pediatric) (9) Ductal carcinoma in situ (DCIS) of right breast: Comment: 03/28/2022, right breast lumpectomy March [address]22 Dr. Ovi andrea Code(s): D05.11 - Intraductal carcinoma in situ of right breast Plan: Continue to follow-up with the surgeon and up to date with mammogram Orders: Referrals Gastroenterology Referral K76.0 - Fatty (change of) liver, not elsewhere classified Medications: Refilled lorazepam 0.5 mg PO DAILY 7 days PRN 7 tabs 0RF anxiety F41.9 - Anxiety disorder, unspecified Discontinued morphine Partial Fill upon patient request. Discontinued Reason: Patient Completed Course 15 mg PO Q6H PRN 14 tabs 0RF pain oxycodone Partial Fill upon patient request. Discontinued Reason: Patient Completed Course 5 mg PO BID PRN 6 tabs 0RF pain M79.7 - Fibromyalgia cholecalciferol (vitamin D3) (Vitamin D3) Discontinued Reason: Doctor's Order 125 mcg PO DAILY 90 tabs 2RF E55.9 - Vitamin D deficiency, unspecified Coding Level of Care Code Est Pt Level 4 (34712) Diagnoses Right renal stone N20.0 Impaired fasting blood sugar R73.01 Fatty liver K76.0 Generalized anxiety disorder F41.1 Primary hypertension I10 Hypertension type: primary hypertension Asthma J45.909 Hypercholesterolemia E78.00 Obstructive sleep apnea G47.33 Ductal carcinoma in situ (DCIS) of right breast D05.11 Additional Codes LUCA-7 Assessment Billing - LUCA-7 Assessment Tool: LUCA-7 Assessment 99175 ([id number])
== END 2024-08-06 15:36 | disposition home or self-care (01) ==
LOC: HO.HMCH 14:57
PROVIDERS: PCP Internal Medicine; Visit Provider Internal Medicine
DX: N20.0 Calculus of kidney (principal); R73.01 Impaired fasting glucose; K76.0 Fatty (change of) liver, not elsewhere classified; F41.1 Generalized anxiety disorder; I10 Essential (primary) hypertension; J45.909 Unspecified asthma, uncomplicated; E78.00 Pure hypercholesterolemia, unspecified; G47.33 Obstructive sleep apnea (adult) (pediatric); D05.11 Intraductal carcinoma in situ of right breast

== ENCOUNTER → 2024-08-06 14:57 | Outpatient (BNVA) | payer OTHER, SELFPAY | PROVIDERS: PCP Internal Medicine; Visit Provider Internal Medicine | DX: N20.0 Calculus of kidney (principal); R73.01 Impaired fasting glucose; K76.0 Fatty (change of) liver, not elsewhere classified; F41.1 Generalized anxiety disorder; I10 Essential (primary) hypertension; J45.909 Unspecified asthma, uncomplicated; E78.00 Pure hypercholesterolemia, unspecified; G47.33 Obstructive sleep apnea (adult) (pediatric); D05.11 Intraductal carcinoma in situ of right breast; Z79.899 Other long term (current) drug therapy | CPT/HCPCS: 96127 ==

== ENCOUNTER 2024-09-30 15:25 | Outpatient (RCR) | payer OTHER, SELFPAY ==
--- NOTE | 2024-08-12 08:45 | MHC.OT.EP ---
[address] [phone] Occupational Therapy Plan of Care Patient Name: Maggie Faustin Date of Evaluation: 08/11/24 Diagnosis: R CLOSED DISPLACED FRACTURE OF TRIQUETRAL BONE Pain Location: Fa/ wrist / hand ; dull ache; intermittent sharp pain Pain Score: 6 Pain Scale Used: Numeric (0 - 10) Aggravating Factors: motion of wrist/ hand Alleviating Factors: Pt reports icing and tylenol Assessment: Pt is a 58 yr. old R hand dominant female who reports fainting on 05/20/24, and taking a force through her R wrist. She reported pain and swelling so she went to ED where she was placed in a splint; when sx's worsened she went to [facility] walk in and had x-rays taken which were positive for a displaced triquetral fx. She was placed in a cast for 2+ mos. She is now in a prefabricated wrist cock up splint (from [employer]), which she reports wearing at all times except for showering. She reports pain, weakness, and decreased AROM. She has been referred to skilled OT therapy to focus therapy on regaining functional use of her R wrist/ hand. Frequency and Duration: The patient will be seen 2xs a week for 6 weeks Short Term Goals: Pt will be complaint w/HEP Pt will be complaint w/ use of heat/ cold modalities to decrease pain/edema Pt will gain 15 of pain free wrist flexion (60) Long-Term Goals: Pt will report using her R hand to type w/ out pain/difficutly\ Pt will report 2/10 pain Pt will gain 15 of wrist extension pain free (55) Treatment Plan: Therapeutic Exercise Therapeutic Activity Home Exercise Program Splinting Neuro Re-ed Patient Education Desensitization/Sensory Re-ed Edema Control ADL Training Ultrasound NMES Iontophoresis Paraffin Fluidotherapy MHP Cold Packs Joint Mobilization Soft Tissue Mobilization Kinesiotaping Other (see comments) Electronically Signed By: Lucy Vargas OTR/L Please Sign and return to therapist. Thank you once again for your referral.
== END 2024-11-03 07:55 | disposition home or self-care (01) ==
LOC: HO.OT 15:25
PROVIDERS: PCP Internal Medicine; Visit Provider Physician Assistant
DX: S62.111D Displaced fracture of triquetrum [cuneiform] bone, right wrist, subsequent encounter for fracture with routine healing (principal)
CPT/HCPCS: 97110; 97140; 97166; 97530; 97535

== ENCOUNTER 2024-10-19 15:05 | Outpatient (REF) | payer OTHER, SELFPAY ==
[2024-10-21 07:22] LABS: CT PCR NOT DETECTED (Not Detect.); NG PCR NOT DETECTED (Not Detect.)
[2024-10-21 11:22] LABS: Bacterial Vaginosis PCR NEGATIVE (Negative); Candida Group PCR NOT DETECTED (Not Detect); Candida glab krusei PCR NOT DETECTED (Not Detect); Trichomonas vaginalis PCR NOT DETECTED (Not Detect)
== END 2024-10-19 15:06 | disposition home or self-care (01) ==
LOC: HO.LNP 15:05
PROVIDERS: PCP Internal Medicine; Visit Provider Obstetrics & Gynecology
DX: N76.0 Acute vaginitis (principal)
CPT/HCPCS: 0352U; 87491; 87591

== ENCOUNTER 2024-10-19 15:05 | Outpatient (AMB) | payer OTHER, SELFPAY ==
--- NOTE | 2024-10-19 15:07 | A.OFFVIS_ITS ---
Intake Visit Reasons: vaginal itch Intake Note: Also experiencing vaginal burning. Environment Friendly Landscape Designer: Environment Friendly Landscape Designer Present (Eri) Accompanied by: Self / Same As Patient Allergies hydrochlorothiazide [HYDROCHLOROTHIAZIDE] Allergy (Severe, Verified 10/19/24 15:14) SWELLING lisinopril [LISINOPRIL] Allergy (Intermediate, Verified 10/19/24 15:14) FACIAL SWELLING peanut [Peanut] Allergy (Mild, Verified 10/19/24 15:14) HIVES HPI Comments Details: Presenting complaining of irritation and redness of 2 days' duration the previous scar in addition to vulvovaginal itching, no discharge or foul odor , no vaginal bleeding or any other concerns. [facility] Medical History Nasal congestion History of ductal carcinoma in situ (DCIS) of breast Cough Anxiety Migraine HTN (hypertension) LUDA (obstructive sleep apnea) Degenerative cervical disc Asthma Obesity (BMI 30-39.9) LFT elevation Vitamin D deficiency Hypercholesterolemia Surgical History Hx of tubal ligation History of lumpectomy of right breast History of tonsillectomy H/O section Family History Brother Myocardial infarct Paternal Grandfather Myocardial infarct Mother Lymphoma Breast CA Father Alcohol abuse Brother LUCA (generalized anxiety disorder) Family/Other Breast CA Other FHx: mental illness Social History Household Members: Spouse and Children Housing: House Are you a primary healthcare interpreter to a significant other at home: No Do you presently have visiting nurse or other home services: No Alcohol intake: never Patient Tobacco Use Status: Never used Tobacco e-Cigarette/Vaping Use: Never Used Second Hand Smoke Exposure: No service: No Current occupational status: employed Cognitive needs: No Hearing needs: No Vision needs: No Female Reproductive History Menstrual Age of Menarche: 12 Review of Systems Const All systems reviewed & are unremarkable except as noted in HPI and below Physical Exam General: Yes no CVA tenderness External Female Exam: normal external appearance and normal appearance of the urethra Speculum Exam - Vagina: normal appearance of the vagina, normal palpation, no lesions and no masses Speculum Exam - Cervix: normal appearance of the cervix, normal palpation, no lesions, no masses and nontender Bimanual exam- vagina & uterus: normal bimanual exam, normal palpation, uterine size normal, normal palpation, uterine shape normal, No Cervical tenderness present and non-tender Bimanual Exam- Adnexa, other: normal adnexae Back/Spine/Pelvis Back: no CVA tenderness Skin Other: scar area candidal skin infection Assessment & Plan Assessment & Plan (1) Candidal dermatitis: Code(s): B37.2 - Candidiasis of skin and nail Category: Medical Plan: Urine dip was negative. The patient was instructed to keep the area dry, use hair blower after showering, use baby powder without Talc and Desitin cream in addition to applying lotrisone cream BID x5 days (2) Vulvovaginitis: Code(s): N76.0 - Acute vaginitis Category: Medical Plan: GC/CT, Bacterial Vaginosis panel taken, Terazol 0.8% q.h.s. for 3 days was sent to the patient's pharmacy. The patient was instructed to call if symptoms don't improve in 48 hours. Medications: Changed From clotrimazole-betamethasone 1-0.05 % 1 appl topical BID 5 days 45 grams 0RF To clotrimazole-betamethasone 1-0.05 % Apply to the affected skin area twice a day for 5 days 1 appl topical BID 5 days 45 grams 0RF Refilled terconazole 0.8% 1 appful vaginal BEDTIME 3 days 20 grams 0RF Coding Level of Care Code Est Pt Level 3 (56289) Diagnoses Candidal dermatitis B37.2 Vulvovaginitis N76.0
== END 2024-10-19 15:26 | disposition home or self-care (01) ==
LOC: HO.HWS 15:05
PROVIDERS: PCP Internal Medicine; Visit Provider Obstetrics & Gynecology
DX: B37.2 Candidiasis of skin and nail (principal); N76.0 Acute vaginitis
CPT/HCPCS: 99213

== ENCOUNTER 2024-12-18 14:59 | Outpatient (AMB) | payer OTHER, SELFPAY ==
--- NOTE | 2024-12-18 15:02 | MHC.OFFVIS ---
Vital Signs 12/18/24 15:17 Height 5 ft 3 in Weight 193 lb 1.999 oz BMI 34.2 BP 134/84 Blood Pressure Location Rt brachial Position Sitting Pulse 76 Pulse Source Pulse Oximeter Pulse Oximetry (%) 100 Oxygen Delivery Method Room Air Intake Visit Reasons: Fatty liver Intake Note: NEW PATIENT for Abn labs (LFT) Prior hx of colo/egd? 2020 via [facility] (tasked to provider) Chief Complaint; RUQ pain, nausea w/o vomiting, Hx of IBS, denies reflux or dysphagia. Pt reports worsening sx with intake of greasy foods. Only taking OTC meds for pain. Denies additional concerns. Glass Cut Off Supervisor Required: No Accompanied by: Self / Same As Patient Allergies hydrochlorothiazide [HYDROCHLOROTHIAZIDE] Allergy (Severe, Verified 12/18/24 15:17) SWELLING lisinopril [LISINOPRIL] Allergy (Intermediate, Verified 12/18/24 15:17) FACIAL SWELLING peanut [Peanut] Allergy (Mild, Verified 12/18/24 15:17) HIVES HPI HPI Fatty liver: Details: 59-year-old female with past medical history of renal stone, RUQ pain, fibromyalgia, hypercholesteremia, obesity, hypertension, migraine, asthma, LUDA, DCIS of right breast is here today for initial consultation. Patient was sent by her PCP for evaluation of her liver. Patient had ultrasound that showed hepatomegaly and increase echogenicityof the liver suspecting hepatic steatosis/fatty liver. ALT mildly elevated normal AST. Patient reports epigastric pain as well as pain in her right upper quadrant. Patient reports that the pain is there after eating. Sometimes patient reports that she feels like this area swells up not long after she eats. Patient can not pinpoint about what food could cause it. She does have a history of fibromyalgia in right kidney stone. However she describes the pain under her ribcage and sometimes it radiates into middle of her chest. Patient is not on any particular diet. Patient reports family history of liver disease and liver cirrhosis. Patient reports that her father had alcoholic liver cirrhosis. Patient also reports that her younger brother was diagnosed with pancreatic and liver cancer. [facility] Medical History (Updated 12/18/24 @ 20:04 by EDWIN Segal-ALLEN) Transaminitis Nasal congestion History of ductal carcinoma in situ (DCIS) of breast Cough Anxiety Migraine HTN (hypertension) LUDA (obstructive sleep apnea) Degenerative cervical disc Asthma Obesity (BMI 30-39.9) LFT elevation Vitamin D deficiency Hypercholesterolemia Surgical History (Updated 12/18/24 @ 15:15 by ADITI Nowak) History of colonoscopy Hx of tubal ligation History of lumpectomy of right breast History of tonsillectomy H/O section Family History Brother Myocardial infarct Paternal Grandfather Myocardial infarct Mother Lymphoma Breast CA Father Alcohol abuse Brother LUCA (generalized anxiety disorder) Family/Other Breast CA Other FHx: mental illness Social History Household Members: Spouse and Children Housing: House Are you a primary client care manager to a significant other at home: No Do you presently have visiting nurse or other home services: No Alcohol intake: never Patient Tobacco Use Status: Never used Tobacco e-Cigarette/Vaping Use: Never Used Second Hand Smoke Exposure: No service: No Current occupational status: employed Cognitive needs: No Hearing needs: No Vision needs: No Female Reproductive History Menstrual Age of Menarche: 12 Review of Systems Const Denies weight gain and Denies weight loss ENT Reports no additional complaints, Denies dysphagia and Denies odynophagia Card Reports no additional complaints Resp Reports no additional complaints GI Reports abdominal pain, Denies belching, Denies melena, Reports bloating, Denies change in bowel habits, Reports constipation, Denies dysphagia, Denies excessive flatus, Denies dyspepsia, Denies heartburn, Denies diarrhea, Reports loose stools, Denies nausea, Denies odynophagia and Denies vomiting Reports no additional complaints Musc Reports no additional complaints Neuro Reports no additional complaints Psych Reports no additional complaints Endo Reports no additional complaints Physical Exam Const General: healthy appearing and no acute distress Nutritional Appearance: obese Orientation/consciousness: patient oriented x3 Resp Effort & Inspection: normal respiratory effort, able to speak in complete sentences, no tracheal deviation and symmetric chest movement Auscultation: clear to auscultation bilaterally Cardio Rate: regular rate GI Inspection: Yes normal to inspection, No distended and Yes obesity Palpation (GI): Soft to palpation, not firm, nontender and No hepatosplenomegaly present Auscultation: normal bowel sounds General: Yes no CVA tenderness Back/Spine/Pelvis Back: no CVA tenderness Skin General skin exam: elasticity normal, turgor normal and dry skin Neuro General: patient oriented x3 Psych Appearance: grossly normal Mental Status: mental status grossly normal Results Reviewed Results Reviewed: ABDOMINAL ULTRASOUND FINDINGS: PANCREAS: Limited visualization of pancreatic tail and head. Imaged portion of pancreatic body is unremarkable. ABDOMINAL AORTA: Unremarkable. INFERIOR VENA CAVA: Visualized portions are normal. LIVER: Hepatomegaly, 18.0 cm. Increased hepatic parenchymal heterogeneity and echogenicity could be associated with hepatocellular disease/hepatic steatosis and substantially limits visualization. Correlation with liver function tests and clinical exam recommended to determine further management. GALLBLADDER: No gallstones. No pericholecystic fluid. COMMON BILE DUCT: Normal in caliber measuring 0.3 cm in diameter. RIGHT KIDNEY: Right renal 5 mm mid pole calculus. No hydronephrosis. Limited visualization. The kidney measures 11.6 cm in maximum dimension. LEFT KIDNEY: 1.1 cm mid pole cyst with peripheral 0.4 cm echogenic focus characteristic of calcification, likely correlates with 0.8 cm left lower pole cyst seen on ultrasound of 01/04/2022. 0.9 cm lateral mid pole cyst. There is no specific indication for additional imaging at this time. There is no specific indication for additional imaging at this time. No hydronephrosis. The kidney measures 12.3 cm in maximum dimension. SPLEEN: Normal. The spleen measures 9.5 cm in maximum dimension. FREE FLUID: None. US/US abdomen complete IMPRESSION: 1. Hepatomegaly, 18.0 cm. Increased hepatic parenchymal heterogeneity and echogenicity could be associated with hepatocellular disease/hepatic steatosis and substantially limits visualization. Correlation with liver function tests and clinical exam recommended to determine further management. Laboratory Tests 08/05/24 07:53 AST 22 ALT 36 H Alkaline Phosphatase 120 H Assessment & Plan Assessment & Plan (1) RUQ abdominal pain: Code(s): R10.11 - Right upper quadrant pain Category: Medical (2) Fatty liver: Code(s): K76.0 - Fatty (change of) liver, not elsewhere classified Category: Medical (3) Transaminitis: Code(s): R74.01 - Elevation of levels of liver transaminase levels Category: Medical (4) Postprandial abdominal pain in right upper quadrant: Code(s): R10.11 - Right upper quadrant pain (5) Postprandial abdominal bloating: Code(s): R14.0 - Abdominal distension (gaseous) Plan Patient reports that her right upper quadrant pain is related to food. Patient feels like there is a swelling in her. Today normal exam. Will check lipase, repeat liver enzymes. Patient will be sent for gastric emptying study to rule out gallbladder dyskinesia. Will rule out celiac, pancreatitis/chronic pancreatitis. We will repeat liver enzymes if they are still elevated we will work that up with additional ultrasound with elastography and more test to rule out autoimmune disorders. Discussed with patient low FODMAP diet. List of food recommended as well as list of food to avoid given to patient. Patient was also encouraged to eat high-protein, low-fat, low carb and low salt diet. Patient will follow-up in 3-4 months, sooner on as needed basis. She is agreeable to this plan and verbalizes understanding of instructions. She was given the opportunity to ask questions and all questions answered. Thank you for allowing me to participate in her care Orders: Orders Lipase Today R10.9 - Unspecified abdominal pain Vitamin D 25-OH (D2 and D3) Today E55.9 - Vitamin D deficiency, unspecified Vitamin B12 and Folate Today R19.7 - Diarrhea, unspecified NM gastric emptying study Today R68.81 - Early satiety Transglutaminase IgA Today R10.9 - Unspecified abdominal pain Liver Panel Today R74.01 - Elevation of levels of liver transaminase levels Coding Level of Care Code New Pt Level 4 (29900) Diagnoses RUQ abdominal pain R10.11 Fatty liver K76.0 Transaminitis R74.01 Postprandial abdominal pain in right upper quadrant R10.11 Postprandial abdominal bloating R14.0 Time Spent (min) 45 Comment 30 minutes spent with patient and additional 15 minutes spent reviewing her records
[2024-12-18 15:17] VITALS: BP 134/84; PULSE 76; O2SAT 100; BMI 34.2
== END 2024-12-18 15:51 | disposition home or self-care (01) ==
PROVIDERS: PCP Internal Medicine; Visit Provider Nurse Practitioner Family
DX: R10.11 Right upper quadrant pain (principal); K76.0 Fatty (change of) liver, not elsewhere classified; R74.01 Elevation of levels of liver transaminase levels; R14.0 Abdominal distension (gaseous)
CPT/HCPCS: 99204

== ENCOUNTER 2024-12-19 08:44 | Outpatient (REF) | payer OTHER, SELFPAY ==
[2024-12-19 10:14] LABS: Alanine Aminotransferase 39 U/L (0-31); Albumin Level 4.6 g/dL (3.5-5.0); Alkaline Phosphatase 121 U/L (39-117); Aspartate Amino Transferase 26 U/L (5-31); Bilirubin Direct 0.2 mg/dL (0.0-0.5); Bilirubin Total 0.6 mg/dL (0.0-1.0); Lipase 29 U/L (8-78); Total Protein 8.3 g/dL (6.5-8.0)
[2024-12-19 10:41] LABS: Folate 10.5 ng/mL (> or = 4.0); Vitamin B12 730 pg/mL (200-900)
[2024-12-23 15:18] LABS: Transglutaminase IgA <1.0 U/mL
[2024-12-23 15:44] LABS: Vitamin D 25-OH, D2 <4 ng/mL; Vitamin D 25-OH, D3 29 ng/mL; Vitamin D 25-OH, Total 29 ng/mL (30-100)
== END 2024-12-19 08:45 | disposition home or self-care (01) ==
LOC: HO.LAB 08:44
PROVIDERS: PCP Internal Medicine; Visit Provider Nurse Practitioner Family
DX: R10.9 Unspecified abdominal pain (principal); E55.9 Vitamin D deficiency, unspecified; R19.7 Diarrhea, unspecified; R74.01 Elevation of levels of liver transaminase levels
CPT/HCPCS: 36415; 80076; 82306; 82607; 82746; 83690; 86364

== ENCOUNTER 2024-12-29 13:40 | Outpatient (AMB) | payer OTHER, SELFPAY ==
[2024-12-29 13:52] VITALS: BP 122/82; BMI 34.2
--- NOTE | 2024-12-29 13:52 | MHC.OFFVIS ---
Vital Signs 12/29/24 13:52 Height 5 ft 3 in Weight 193 lb BMI 34.2 BP 122/82 Intake Visit Reasons: annual Drain Cleaner Required: No Information Interpreted: non-clinical & clinical Employment Educational Coord: Employment Educational Coord Present (Kira CRISTOBAL) Accompanied by: Self / Same As Patient Allergies hydrochlorothiazide [HYDROCHLOROTHIAZIDE] Allergy (Severe, Verified 12/29/24 13:55) SWELLING lisinopril [LISINOPRIL] Allergy (Intermediate, Verified 12/29/24 13:55) FACIAL SWELLING peanut [Peanut] Allergy (Mild, Verified 12/29/24 13:55) HIVES Post menopausal: Yes HPI Comments Details: Presenting for annual exam. No complaints. Last Pap/HPV was negative in 12/09 Last Mammogram was BI-RADS 3 in 12/12, the recommendation was to repeat in six-months Last Colonoscopy was around? 8 years ago, the patient was due for another screening colonoscopy few years ago PFSH Medical History Transaminitis Nasal congestion History of ductal carcinoma in situ (DCIS) of breast Cough Anxiety Migraine HTN (hypertension) LUDA (obstructive sleep apnea) Degenerative cervical disc Asthma Obesity (BMI 30-39.9) LFT elevation Vitamin D deficiency Hypercholesterolemia Surgical History History of colonoscopy Hx of tubal ligation History of lumpectomy of right breast History of tonsillectomy H/O section Family History Brother Myocardial infarct Paternal Grandfather Myocardial infarct Mother Lymphoma Breast CA Father Alcohol abuse Brother LUCA (generalized anxiety disorder) Family/Other Breast CA Other FHx: mental illness Social History Household Members: Spouse and Children Housing: House Are you a primary home health care case manager to a significant other at home: No Do you presently have visiting nurse or other home services: No Alcohol intake: never Patient Tobacco Use Status: Never used Tobacco e-Cigarette/Vaping Use: Never Used Second Hand Smoke Exposure: No service: No Current occupational status: employed Cognitive needs: No Hearing needs: No Vision needs: No Female Reproductive History Menstrual Age of Menarche: 12 Date of last pap smear: 11/20/21 Date of Mammogram: 10/30/23 Review of Systems Const All systems reviewed & are unremarkable except as noted in HPI and below Card Reports as per HPI Resp Reports as per HPI GI Reports as per HPI and Reports no additional complaints Reports as per HPI Physical Exam Const General: cooperative, healthy appearing and comfortable Chest Chest palpation & inspection: normal inspection of the chest and normal palpation of entire chest wall Breast/axilla inspection: normal inspection of the breasts and normal inspection of the axillae Breast/axilla palpation: normal palpation of the breasts, normal palpation of the axillae and no axillary lymphadenopathy Resp Effort & Inspection: normal respiratory effort Auscultation: clear to auscultation bilaterally Percussion: percussion normal Cardio Palpation: normal PMI Rate: regular rate Rhythm: regular rhythm Heart sounds: no murmurs and no rubs Peripheral pulses: Peripheral pulses 2+ throughout GI Inspection: Yes normal to inspection Palpation (GI): Soft to palpation, nontender, no guarding, not rigid and No hepatosplenomegaly present Percussion: Yes normal to percussion Auscultation: normal bowel sounds Rectal Exam - Female: deferred General: Yes bladder normal to palpation External Female Exam: No lesion Speculum Exam - Vagina: normal appearance of the vagina, normal palpation, normal vaginal discharge and not erythematous Speculum Exam - Cervix: normal appearance of the cervix and normal palpation Bimanual exam- vagina & uterus: normal bimanual exam, normal palpation, uterine size normal, bladder normal to palpation, consistency normal and normal palpation Bimanual Exam- Adnexa, other: normal adnexae, no masses and no tenderness Assessment & Plan Assessment & Plan (1) Well woman exam: Code(s): Z01.419 - Encounter for gynecological examination (general) (routine) without abnormal findings Category: Medical Plan: Co testing at indicated this year. Counseled the patient about the recommended dietary allowance of 1200 mg of Calcium & 600 IU of vitamin D. Mammogram scheduled in six-months at [facility]. The patient was referred to GI for screening colonoscopy . The patient was instructed to perform monthly self-breast exams and schedule annual exam in a year. All questions answered and the patient verbalized understanding. Orders: Referrals Gastroenterology Referral Z12.11 - Encounter for screening for malignant neoplasm of colon Coding Level of Care Code Est Pt Prev Care 40-64y(92628) Diagnoses Well woman exam Z01.419
== END 2024-12-29 14:21 | disposition home or self-care (01) ==
PROVIDERS: PCP Internal Medicine; Visit Provider Obstetrics & Gynecology
DX: Z01.419 Encounter for gynecological examination (general) (routine) without abnormal findings (principal)
CPT/HCPCS: 99396; 99459

== ENCOUNTER → 2024-12-29 13:40 | Outpatient (BNVA) | payer OTHER, SELFPAY | PROVIDERS: PCP Internal Medicine; Visit Provider Obstetrics & Gynecology ==

== ENCOUNTER → 2025-01-12 07:52 | Outpatient (REF) | payer OTHER, SELFPAY ==
--- NOTE | ~2025-01-12 | NM_ITS ---
EXAMINATION: NM RADIONUCLIDE SOLID FOOD GASTRIC EMPTYING 4-HOUR STUDY CLINICAL INFORMATION: Early satiety COMPARISON: None TECHNIQUE: A standard meal consisting of 4 oz of Egg Beaters brand tagged with 1 millicurie Tc-99m Sulfur Colloid, 6 oz water and 2 slices of toast was administered orally to the patient. Images were obtained using a dual head gamma camera in the anterior and posterior projections over of the stomach immediately post ingestion and at hourly intervals up to 4 hours post ingestion. The anterior and posterior counts at each time interval were averaged using the geometric mean and expressed as percentage of the immediate post ingestion counts. FINDINGS: There is good visualization of activity in the stomach immediately post ingestion. As the study progresses, there is good clearance of activity from the stomach and visualization of progressively increasing small bowel activity. By the end of the study, there is almost no retention noted in the stomach. Retention in the stomach at each time interval was: 1 hour 100% (normal 37%-90%) 2 hours 53% (normal 30%-60%) 3 hours 7% 4 hours 0% (normal 0%-10%) NM/RI gastric emptying study IMPRESSION: Slightly delayed emptying at 1 hour. Otherwise unremarkable 4-hour solid food gastric emptying study. For solid meal, rapid gastric emptying is less than 30% at 60 minutes. Delayed gastric emptying criteria is more than 60% remaining at 120 minutes or more than 10% at 240 minutes. The 4-hour value is the best discriminator of a normal or abnormal result). Gastric emptying study grading per JNMT Consensus Recommendations in 2008 (https://tech.snmjournals.org/content/36/1/44) Grade 1 (mild retention): 11-20% at 4h Grade 2 (moderate retention): 21-35% at 4h Grade 3 (severe retention): 36-50% at 4h Grade 4 (very severe retention): >50% retention at 4h Electronically signed by: Oral Ferreira MD 01/12/2025 11:58 AM [facility]
== END ==
LOC: HO.NUCMED 07:52
PROVIDERS: PCP Internal Medicine; Visit Provider Nurse Practitioner Family
DX: R68.81 Early satiety (principal)
CPT/HCPCS: 78264; A9541

== ENCOUNTER → 2025-01-12 07:54 | Outpatient (BNV) | payer OTHER, SELFPAY | PROVIDERS: PCP Internal Medicine; Visit Provider Radiology Diagnostic Radiology | DX: R68.81 Early satiety (principal) | CPT/HCPCS: 78264 ==

== ENCOUNTER → 2025-01-15 12:57 | Outpatient (REF) | payer OTHER, SELFPAY ==
--- NOTE | ~2025-01-15 | NM_ITS ---
EXAMINATION: NM HIDA SCAN WITH CCK CLINICAL INFORMATION: Evaluate for biliary dyskinesia. Right upper quadrant pain. COMPARISON: Abdomen US 04/15/2024. TECHNIQUE: HIDA scan was performed using standard department protocol after the IV administration of 5 mCi technetium 99m-mebrofenin. At 1 hour, 1.75 mcg of CCK was given over 30 minutes via syringe pump. Standard gamma camera imaging was performed. FINDINGS: There is rapid uptake of radiotracer into the hepatic parenchyma, and rapid excretion into the biliary system. There are no photopenic hepatic defects. The gallbladder was visualized at 42 minutes, and filled normally. Activity in the small bowel was noted at 60 minutes postinjection. There is normal hepatic clearance of activity at one hour. At 1 hour, during the administration of CCK, there was normal progression of activity from the gallbladder into the small bowel at 30 minutes. Gallbladder ejection fraction was calculated at 78%, with ejection fraction or wall beginning at 3 minutes, and terminating at 29 minutes. Fractional ejection fraction: A 10 minutes = 23% At 20 minutes = 72% At 30 minutes = 78%. NM/NM hepatobiliary w pharm IMPRESSION: 1. Normal HIDA scan with normal visualization of the gallbladder and activity seen within the small bowel. No evidence of cholecystitis. 2. Normal ejection fraction of 78% after the administration of CCK. Electronically signed by: Franco Ibrahim MD 01/15/2025 03:22 PM [facility]
== END ==
LOC: HO.NUCMED 12:57
PROVIDERS: PCP Internal Medicine; Visit Provider Nurse Practitioner Family
DX: R10.11 Right upper quadrant pain (principal)
CPT/HCPCS: 78227; A9537; J2805

== ENCOUNTER → 2025-01-15 12:59 | Outpatient (BNV) | payer OTHER, SELFPAY | PROVIDERS: PCP Internal Medicine; Visit Provider Radiology Diagnostic Radiology | DX: R10.11 Right upper quadrant pain (principal); K82.8 Other specified diseases of gallbladder | CPT/HCPCS: 78227 ==

== ENCOUNTER 2025-01-16 09:18 | Outpatient (REF) | payer OTHER, SELFPAY ==
[2025-01-16 11:12] LABS: Prothrombin Time 11.1 SEC (10.9-12.4)
[2025-01-16 11:53] LABS: Erythrocyte Sedimentation Rate 6 MM/HR (0-20)
[2025-01-16 12:17] LABS: C Reactive Protein 0.36 mg/dL (< or = 0.50)
[2025-01-16 12:23] LABS: Ferritin 189 ng/mL (10-250)
[2025-01-18 08:25] LABS: Ceruloplasmin 31 mg/dL (14-48)
[2025-01-18 12:53] LABS: Alpha Fetoprotein 2.3 ng/mL
[2025-01-19 13:39] LABS: Mitochondrial Antibodies NEGATIVE (NEGATIVE)
[2025-01-20 12:49] LABS: Smooth Muscle Antibody <20 U (<20)
[2025-01-21 15:28] LABS: FIB-ALT 30 U/L (6-29); FIB-Alpha-2-Macroglobulin 159 mg/dL (106-279); FIB-Apolipoprotein A1 207 mg/dL (101-198); FIB-GGT 27 U/L (3-70); FIB-Haptoglobin 205 mg/dL (43-212); FIB-Total Bilirubin 0.6 mg/dL (0.2-1.2); Liver Fibrosis Score 0.06; Liver Fibrosis Stage F0; Nec Inflam Act Grade A0; Nec Inflam Act Score 0.11; Reference ID 5369174
== END 2025-01-16 09:19 | disposition home or self-care (01) ==
LOC: HO.LAB 09:18
PROVIDERS: PCP Internal Medicine; Visit Provider Nurse Practitioner Family
DX: R79.89 Other specified abnormal findings of blood chemistry (principal); R74.8 Abnormal levels of other serum enzymes; K76.0 Fatty (change of) liver, not elsewhere classified; K58.9 Irritable bowel syndrome, unspecified
CPT/HCPCS: 36415; 81596; 82105; 82390; 82728; 85610; 85652; 86015; 86140; 86381

== ENCOUNTER 2025-03-12 16:02 | Outpatient (AMB) | payer OTHER, SELFPAY ==
--- NOTE | 2025-03-12 16:12 | A.OFFVIS_ITS ---
Vital Signs 03/12/25 16:22 Height 5 ft 3 in Weight 198 lb BMI 35.1 BP 146/74 H Blood Pressure Location Rt brachial Position Sitting Pulse 76 Pulse Source Pulse Oximeter Pulse Oximetry (%) 97 Oxygen Delivery Method Room Air Intake Visit Reasons: 3 mo fatty liver Intake Note: ESTABLISHED PATIENT for mgmt of abd pain and abn labs. Orders fulfilled. Chief Complaint; Pt denies any GI sx or concerns at this time. 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 Patient feels like there is a swelling in there . Today normal exam. Will check lipase, repeat liver enzymes. Patient will be sent for gastric emptying study to rule out gastroparesis. Will rule out celiac, pancreatitis/chronic pancreatitis. We will repeat liver enzymes if they are still elevated we will work that up with additional ultrasound with elastography and more test to rule out autoimmune disorders. Discussed with patient low FODMAP diet. List of food recommended as well as list of food to avoid given to patient. Patient was also encouraged to eat high-protein, low-fat, low carb and low salt diet. Patient will follow-up in 3-4 months, sooner on as needed basis. She is agreeable to this plan and verbalizes understanding of instructions. She was given the opportunity to ask questions and all questions answered. ? Thank you for allowing me to participate in her care Orders Orders Lipase Today R10.9 Vitamin D 25-OH (D2 and D3) Today E55.9 Vitamin B12 and Folate Today R19.7 NM gastric emptying study Today R68.81 Transglutaminase IgA Today R10.9 Liver Panel Today R74.01 TODAY'S VISIT Patient is here today for follow-up. Patient reports that she still continues to have epigastric and right upper quadrant pain. Patient reports feeling inflamed in the right upper quadrant. Patient does report to be feeling slightly gassy. It happens quite often sometimes with or without eating. Patient had gastric emptying study, normal exam. HIDA scan showed normal gallbladder function. Mildly elevated ALT. Normal GGT. Patient reports that she has been very busy. 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 Patient admits that she does not have much time to take care of herself. Meals have been what ever they can prepare. Patient has not had time to look over the FODMAP diet recommendation that was given to her last visit. Last endoscopy and colonoscopy was at [facility] in 2022. Patient reports that she is moving her bowels for the most part. Patient denies melena, hematochezia, unintentional weight loss or ribbon like stools. [facility] Medical History Transaminitis Nasal congestion History of ductal carcinoma in situ (DCIS) of breast Cough Anxiety Migraine HTN (hypertension) LUDA (obstructive sleep apnea) Degenerative cervical disc Asthma Obesity (BMI 30-39.9) LFT elevation Vitamin D deficiency Hypercholesterolemia Surgical History History of dental surgery History of colonoscopy Hx of tubal ligation History of lumpectomy of right breast History of tonsillectomy H/O section Family History Brother Myocardial infarct Paternal Grandfather Myocardial infarct Mother Lymphoma Breast CA Father Alcohol abuse Brother LUCA (generalized anxiety disorder) Family/Other Breast CA Other FHx: mental illness Social History Household Members: Spouse and Children Housing: House Are you a primary child caregiver to a significant other at home: No Do you presently have visiting nurse or other home services: No Alcohol intake: never Patient Tobacco Use Status: Never used Tobacco e-Cigarette/Vaping Use: Never Used Second Hand Smoke Exposure: No service: No Current occupational status: employed Cognitive needs: No Hearing needs: No Vision needs: No Female Reproductive History Menstrual Age of Menarche: 12 Review of Systems Const Denies weight gain and Denies weight loss ENT Reports no additional complaints, Denies dysphagia and Denies odynophagia Card Reports no additional complaints Resp Reports no additional complaints GI Reports abdominal pain, Denies belching, Denies melena, Reports bloating, Denies change in bowel habits, Reports constipation, Denies dysphagia, Denies excessive flatus, Denies dyspepsia, Denies heartburn, Denies diarrhea, Reports loose stools, Denies nausea, Denies odynophagia and Denies vomiting Reports no additional complaints Musc Reports no additional complaints Neuro Reports no additional complaints Psych Reports no additional complaints Endo Reports no additional complaints Physical Exam Const General: healthy appearing and no acute distress Nutritional Appearance: obese Orientation/consciousness: patient oriented x3 Resp Effort & Inspection: normal respiratory effort, able to speak in complete sentences, no tracheal deviation and symmetric chest movement Auscultation: clear to auscultation bilaterally Cardio Rate: regular rate GI Inspection: Yes normal to inspection, No distended and Yes obesity Palpation (GI): Soft to palpation, not firm, nontender and No hepatosplenomegaly present Auscultation: normal bowel sounds General: Yes no CVA tenderness Back/Spine/Pelvis Back: no CVA tenderness Skin General skin exam: elasticity normal, turgor normal and dry skin Neuro General: patient oriented x3 Psych Appearance: grossly normal Mental Status: mental status grossly normal Results Reviewed Results Reviewed: GES FINDINGS: There is good visualization of activity in the stomach immediately post ingestion. As the study progresses, there is good clearance of activity from the stomach and visualization of progressively increasing small bowel activity. By the end of the study, there is almost no retention noted in the stomach. Retention in the stomach at each time interval was: 1 hour 100% (normal 37%-90%) 2 hours 53% (normal 30%-60%) 3 hours 7% 4 hours 0% (normal 0%-10%) NM/NM gastric emptying study IMPRESSION: Slightly delayed emptying at 1 hour. Otherwise unremarkable 4-hour solid food gastric emptying study. HIDA SCAN FINDINGS: There is rapid uptake of radiotracer into the hepatic parenchyma, and rapid excretion into the biliary system. There are no photopenic hepatic defects. The gallbladder was visualized at 42 minutes, and filled normally. Activity in the small bowel was noted at 60 minutes postinjection. There is normal hepatic clearance of activity at one hour. At 1 hour, during the administration of CCK, there was normal progression of activity from the gallbladder into the small bowel at 30 minutes. Gallbladder ejection fraction was calculated at 78%, with ejection fraction or wall beginning at 3 minutes, and terminating at 29 minutes. Fractional ejection fraction: A 10 minutes = 23% At 20 minutes = 72% At 30 minutes = 78%. NM/NM hepatobiliary w pharm IMPRESSION: 1. Normal HIDA scan with normal visualization of the gallbladder and activity seen within the small bowel. No evidence of cholecystitis. 2. Normal ejection fraction of 78% after the administration of CCK. Laboratory Tests 12/19/24 01/16/25 08:58 09:32 Ferritin 189 Total Bilirubin 0.6 Direct Bilirubin 0.2 AST 26 ALT 39 H Alkaline Phosphatase 121 H Liver Fibrosis Stage F0 Ceruloplasmin 31 Lipase 29 Alpha Fetoprotein 2.3 Vitamin B12 730 25-OH Vitamin D Total 29 L Anti-Mitochondrial Ab NEGATIVE Anti-Smooth Muscle Ab <20 Tiss Transglutamin IgA <1.0 Assessment & Plan Assessment & Plan (1) Transaminitis: Code(s): R74.01 - Elevation of levels of liver transaminase levels Category: Medical (2) RUQ abdominal pain: Code(s): R10.11 - Right upper quadrant pain Category: Medical (3) Fatty liver: Code(s): K76.0 - Fatty (change of) liver, not elsewhere classified Category: Medical (4) Postprandial abdominal pain in right upper quadrant: Code(s): R10.11 - Right upper quadrant pain (5) Postprandial abdominal bloating: Code(s): R14.0 - Abdominal distension (gaseous) Plan Long discussion with patient about changing her diet. Patient will try to follow FODMAP diet as discussed last visit. Discussed with patient all of her lab results as well as HIDA scan and gastric emptying study. Everything was nor mal. Patient will try to increase fluid intake and activity to for almost better bowel motility. Patient will try to avoid dietary triggers and late night snacking. Smaller meals more often. Patient reports that she is gaining weight even though she only eats for the most time 1 meal a day. Patient does admit that the last meal of the day is very vague. Patient was encouraged to eat smaller meals, try to increase activity. Low Fat, low carb and high-protein diet. More vegetables, less bread and rice. Patient will return in 6 months, sooner on as needed basis. She is agreeable to this plan and verbalizes understanding of instructions. She was given the opportunity to ask questions and all questions answered. Thank you for allowing me to participate in her care Coding Level of Care Code Est Pt Level 4 (89159) Complex EM visit Add On G2211 Diagnoses Transaminitis R74.01 RUQ abdominal pain R10.11 Fatty liver K76.0 Postprandial abdominal pain in right upper quadrant R10.11 Postprandial abdominal bloating R14.0 Time Spent (min) 35 Comment 25 minute spent with patient and additional 10 minutes spent reviewing her records
[2025-03-12 16:22] VITALS: BP 146/74; PULSE 76; O2SAT 97; BMI 35.1
== END 2025-03-12 16:45 | disposition home or self-care (01) ==
LOC: HO.HGI 16:03
PROVIDERS: PCP Internal Medicine; Visit Provider Nurse Practitioner Family
DX: R74.01 Elevation of levels of liver transaminase levels (principal); R10.11 Right upper quadrant pain; K76.0 Fatty (change of) liver, not elsewhere classified; R14.0 Abdominal distension (gaseous)
CPT/HCPCS: 99214

== ENCOUNTER 2025-04-07 08:51 | Emergency (ER) | payer SELFPAY ==
[2025-04-07 08:53] VITALS: BP 178/95; PULSE 71; RESP 18; TEMP 36.3; O2SAT 100; BMI 35.3
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
[2025-04-07 10:26] VITALS: BP 178/95; PULSE 71; RESP 18; TEMP 36.3; O2SAT 100
[2025-04-07 10:30] VITALS: BP 178/95; PULSE 71; RESP 18; TEMP 36.3; O2SAT 100
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
== END 2025-04-07 10:38 | disposition home or self-care (01) ==
PROVIDERS: Emergency Provider Emergency Medicine; PCP Internal Medicine
DX: S13.4XXA Sprain of ligaments of cervical spine, initial encounter (principal); R11.0 Nausea; R51.9 Headache, unspecified; V43.52XA Car driver injured in collision with other type car in traffic accident, initial encounter; Y93.9 Activity, unspecified; Y92.410 Unspecified street and highway as the place of occurrence of the external cause; Y99.8 Other external cause status
CPT/HCPCS: 99282; 99283; 99284

== ENCOUNTER 2025-08-03 07:53 | Outpatient (REF) | payer OTHER, SELFPAY ==
--- OUTSIDE RECORDS SUMMARY | 2025-08-03 08:01 | XMS_ITS | Clinical Summary ---
Author Organization [facility] Address [address] [place] [address] Phone Care Team Providers Care Suspender Cutter Name Role Phone Tara Cardenas MD Primary Care Provider [phone] Allergies Active Allergy Reactions Criticality Noted Date Comments Hydrochlorothiazide Swelling High 05/15/2022 Lisinopril Swelling Medium 05/15/2022 Peanut Hives Low 05/15/2022 Medications verapamiL (CALAN) 120 MG immediate release tabletIndicatio ns:hypertension Take 240 mg by mouth daily. Indications: high blood pressure Active butalbital-acet aminophen-caffe ine (FIORICET, ESGIC) 50-325-40 mg per tablet Take 1 tablet by mouth every 4 (four) hours as needed for pain (specific location in comments). Active albuterol 90 mcg/actuation inhaler Inhale 2 puffs into the lungs every 6 (six) hours as needed for wheezing. Active acetaminophen (TYLENOL) 325 mg tablet Take 650 mg by mouth every 6 (six) hours as needed for mild pain. Active metoprolol succinate (TOPROL-XL) 25 MG 24 hr tablet Take 50 mg by mouth daily. Active codeine 15 MG tablet Take 10 mg by mouth every 6 (six) hours as needed for pain (specific location in comments). Active Active Problems Problem Noted Date Diagnosed Date Ductal carcinoma in situ (DCIS) of right breast 05/16/2022 Family History Medical History Relation Comments Cancer Father Cancer Maternal Cousin Cancer Mother Relation Status Comments Father Maternal Cousin Mother Social History Tobacco Use Types Packs/Day Years Used Date Smoking Tobacco: Never Smokeless Tobacco: Never Alcohol Use Standard Drinks/Week Comments Not Currently 0 (1 standard drink = 0.6 oz pur e alcohol) Education Answer Date Recorded Are you interested in more education? Not on angela e 03/16/2023 Are you concerned about learning? Not on file 03/16/2023 No 03/16/2023 No 03/16/2023 Digital Access Answer Date Recorded No 04/14/2023 No 04/14/2023 No 04/14/2023 Reliable internet access at home? Not on file 04/14/2023 Device with a working camera? Not on file Comments Unknown Sex and Gender Information Value Date Recorded Sex Assigned at Not on file Legal Sex Female 12:21 PM EDT Gender Identity Not on file Sexual Orientation Not on file Last Filed Vital Signs Vital Sign Reading Time Taken Comments Blood Pressure 142/95 07/16/2022 10:15 AM EDT Pulse 67 07/16/2022 10:15 AM EDT Temperature - - Respiratory Rate 16 07/16/2022 10:1 5 AM EDT Oxygen Saturation 98% 07/16/2022 10: 15 AM EDT Inhaled Oxygen Concentration - - Weight 85.7 kg (188 lb 14.4 oz) 022 10:11 AM EDT Height - - Body Mass Index - - Plan of Treatment Health Maintenance Due Date Last Done Comments Adult Td,Tdap Booster 1966 LIPID PANEL 1966 DEPRESSION SCREENING 1978 HEPATITIS C SCREENING 1984 HIV ONE-TIME SCREENING (18-6 5 YEARS) 1984 PNEUMOCOCCAL VACCINES (50+ y ears) (1 of 2 - PCV) 1985 ZOSTER VACCINES (1 of 2) 1985 PAP SMEAR 1987 SMOKING STATUS SCREENING (On ce After 26 Yrs) 1992 MAMMOGRAM 2006 COLOGUARD 2011 COLONOSCOPY 2011 COLORECTAL CANCER SCREENING 2011 FIT TEST 2011 FOBT 2011 SIGMOIDOSCOPY 2011 VIRTUAL COLONOSCOPY 2011 INFLUENZA VACCINE (#1) 2025 COVID-19 VACCINE ( - 2023-2 5 season) 2025 HEPATITIS A VACCINES Aged Out No long er eligible based on patient's age to complete this topic HIB VACCINES Aged Out No longer eligi ble based on patient's age to complete this topic MENINGOCOCCAL VACCINES (ACWY) Aged Out No longer eligible based on patient's age to complete this topic MENINGOCOCCAL VACCINES (B) Aged Out N o longer eligible based on patient's age to complete this topic Medical Devices Not on file [place] [address] [place] [address] [place] [address] [place] [address] [place] [address] [place] [address] CHO[address] [facility] CHOICE [facility] CHOICE [facility] CHOICE Care Teams Suspender Cutter Relationship Specialty Start Date End Date Po, Lorenver Brionna, MD [address] [place] [address] Drive [address] [place] [address] PCP - General Internal Medicine 05/04/22 Additional Source Comments The information contained in this document represents components of the legal health record. It is not the complete legal health record.[facility]
[2025-08-03 08:21] LABS: MANUAL DIFF FLAG NO
[2025-08-03 08:35] LABS: Hematocrit 40.3 % (37.0-47.0); Hemoglobin 14.0 g/dl (12.0-16.0); Imm Gran Abs Auto 0.03 X10*3/uL (0.00-0.03); Imm Gran Pct Auto 0.5 % (0.0-0.4); Lymphocytes Absolute Auto 2.1 X10*3/uL (1.2-4.9); Mean Corpuscular HGB Conc 34.7 g/dl (31.0-35.0); Mean Corpuscular Hemoglobin 29.4 pg (27.0-33.0); Mean Corpuscular Volume 84.7 fL (80.0-98.0); NRBC Abs Auto 0.000 X10*3/uL (0.0-0.012); NRBC Pct Auto 0.0 /100WBC (0.0-0.2); Platelet Count 340 X10*3/uL (160-400); Red Blood Count 4.76 X10*6/uL (4.20-5.50); White Blood Count 5.9 X10*3/uL (4.8-10.8)
[2025-08-03 08:51] LABS: Hemoglobin A1C 155.7729 umol/L; Total Hemoglobin (HGBA1C) 3729.0653 umol/L
[2025-08-03 09:20] LABS: Alanine Aminotransferase 45 U/L (0-31); Albumin Level 4.7 g/dL (3.5-5.0); Alkaline Phosphatase 117 U/L (39-117); Anion Gap 13 (12-20); Aspartate Amino Transferase 39 U/L (5-31); Blood Urea Nitrogen 16 mg/dL (9-16); Calcium 9.2 mg/dL (8.4-10.2); Carbon Dioxide 24 mmol/L (22-29); Chloride 106 mmol/L (96-108); Cholesterol 237 mg/dL (<200); Estimated Glomerular Filt Rate > 60; HDL Cholesterol 52 mg/dL (>40); Magnesium 2.2 mg/dL (1.6-2.6); Potassium 4.2 mmol/L (3.3-5.1); Sodium 139 mmol/L (135-145); Total Protein 8.0 g/dL (6.5-8.0); Triglycerides 120 mg/dL (<150)
[2025-08-03 09:25] LABS: Ferritin 208 ng/mL (10-250); Free T4 (Free Thyroxine) 0.91 ng/dL (0.71-1.85); Thyroid Stimulating Hormone 1.40 uIU/mL (0.32-4.0)
[2025-08-03 09:33] LABS: Folate 13.6 ng/mL (> or = 4.0); Vitamin B12 569 pg/mL (200-900)
[2025-08-03 09:44] LABS: Appearance Urine Clear; Glucose Urine UA Negative (Negative); PH 6.0 (5.0-9.0); Specific Gravity - Urine 1.020 (1.005-1.025); UMIC TRIGGER UACC YES
== END 2025-08-03 07:54 | disposition home or self-care (01) ==
LOC: HO.LAB 07:53
PROVIDERS: PCP Internal Medicine; Visit Provider Internal Medicine
DX: Z13.1 Encounter for screening for diabetes mellitus (principal); E78.00 Pure hypercholesterolemia, unspecified
CPT/HCPCS: 36415; 80053; 80061; 81001; 82306; 82607; 82728; 82746; 83036; 83735; 84439; 84443; 85025

== ENCOUNTER 2025-09-06 15:35 | Outpatient (AMB) | payer OTHER, SELFPAY ==
--- NOTE | 2025-09-06 15:45 | A.OFFVIS_ITS ---
Vital Signs 09/06/25 15:52 Height 5 ft 3 in Weight 190 lb BMI 33.7 BP 138/80 Blood Pressure Location Rt brachial Position Sitting Pulse 68 Pulse Source Pulse Oximeter Pulse Oximetry (%) 98 Oxygen Delivery Method Room Air Intake Visit Reasons: 6 MO F/U RUQ Intake Note: Est pt for mgmt of abd pain, transaminitis, and abd distention. CC: Pt reports having intermittent episodes of chronic abd pain but states overall she is doing much better. 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 Patient will try to follow FODMAP diet as discussed last visit. Discussed with patient all of her lab results as well as HIDA scan and gastric emptying study. Everything was normal. Patient will try to increase fluid intake and activity to for almost better bowel motility. Patient will try to avoid dietary triggers and late night snacking. Smaller meals more often. Patient reports that she is gaining weight even though she only eats for the most time 1 meal a day. Patient does admit that the last meal of the day is very vague. Patient was encouraged to eat smaller meals, try to increase activity. Low Fat, low carb and high-protein diet. More vegetables, less bread and rice. Patient will return in 6 months, sooner on as needed basis. She is agreeable to this plan and verbalizes understanding of instructions. She was given the opportunity to ask questions and all questions answered. TODAY'S VISIT Patient is here today for follow-up. Patient reports that she has been doing better since last visit. Patient reports that she is trying to eat smaller meals and more often. She is trying to avoid certain dietary triggers. Still has trouble moving her bowels occasionally. Last month patient's lab work showed increased transaminitis. Patient admits that she is unable to lose weight. 8 lb weight loss in 6 months. Patient denies dyspepsia, dysphagia or odynophagia. Denies melena, hematochezia, unintentional weight loss or ribbon like stools. [facility] Medical History Transaminitis Nasal congestion History of ductal carcinoma in situ (DCIS) of breast Cough Anxiety Migraine HTN (hypertension) LUDA (obstructive sleep apnea) Degenerative cervical disc Asthma Obesity (BMI 30-39.9) LFT elevation Vitamin D deficiency Hypercholesterolemia Surgical History History of dental surgery History of colonoscopy Hx of tubal ligation History of lumpectomy of right breast History of tonsillectomy H/O section Family History Brother Myocardial infarct Paternal Grandfather Myocardial infarct Mother Lymphoma Breast CA Father Alcohol abuse Brother LUCA (generalized anxiety disorder) Family/Other Breast CA Other FHx: mental illness Social History Household Members: Spouse and Children Housing: House Are you a primary patient centered care specialist to a significant other at home: No Do you presently have visiting nurse or other home services: No Alcohol intake: never Patient Tobacco Use Status: Never used Tobacco e-Cigarette/Vaping Use: Never Used Second Hand Smoke Exposure: No service: No Current occupational status: employed Cognitive needs: No Hearing needs: No Vision needs: No Female Reproductive History Menstrual Age of Menarche: 12 Review of Systems Const Denies weight gain and Denies weight loss ENT Reports no additional complaints, Denies dysphagia and Denies odynophagia Card Reports no additional complaints Resp Reports no additional complaints GI Reports abdominal pain (Occasional), Denies belching, Denies melena, Reports bloating (Occasional), Denies change in bowel habits, Reports constipation, Denies dysphagia, Denies excessive flatus, Denies dyspepsia, Denies heartburn, Denies diarrhea, Reports loose stools, Denies nausea, Denies odynophagia and Denies vomiting Reports no additional complaints Musc Reports no additional complaints Neuro Reports no additional complaints Psych Reports no additional complaints Endo Reports no additional complaints Physical Exam Vital Signs: Last Vital Signs Pulse 68 09/06/25 15:52 BP 138/80 09/06/25 15:52 Pulse Ox 98 09/06/25 15:52 Oxygen Delivery Method Room Air 09/06/25 15:52 BMI result Body Mass Index 33.7 Const General: healthy appearing and no acute distress Nutritional Appearance: obese Orientation/consciousness: patient oriented x3 Resp Effort & Inspection: normal respiratory effort, able to speak in complete sentences, no tracheal deviation and symmetric chest movement Auscultation: clear to auscultation bilaterally Cardio Rate: regular rate GI Inspection: Yes normal to inspection, No distended and Yes obesity Palpation (GI): Soft to palpation, not firm, nontender and No hepatosplenomegaly present Auscultation: normal bowel sounds General: Yes no CVA tenderness Back/Spine/Pelvis Back: no CVA tenderness Skin General skin exam: elasticity normal, turgor normal and dry skin Neuro General: patient oriented x3 Psych Appearance: grossly normal Mental Status: mental status grossly normal Results Reviewed Results Reviewed: FIB 4 score 0.99?points Advanced fibrosis excluded Approximate fibrosis stage: Hiram 0-1 (Reyes et al 2006) Laboratory Tests 12/19/24 08/03/25 08:58 08:20 Total Bilirubin 0.9 AST 26 39 H ALT 39 H 45 H Alkaline Phosphatase 121 H 117 Assessment & Plan Assessment & Plan (1) Transaminitis: Code(s): R74.01 - Elevation of levels of liver transaminase levels Category: Medical (2) Fatty liver: Code(s): K76.0 - Fatty (change of) liver, not elsewhere classified Category: Medical (3) Postprandial abdominal pain in right upper quadrant: Code(s): R10.11 - Right upper quadrant pain (4) Postprandial abdominal bloating: Code(s): R14.0 - Abdominal distension (gaseous) Plan Patient will continue on trying to lose weight. Low fat, low salt, low carb and high-protein diet recommended. Will send her for ultrasound with elastography. FIB 4 score 0.94 = F 0/1. Continue low FODMAP diet to avoid postprandial abdominal bloating. Increase fluid intake and activity to promote bowel motility. Patient will return in 8 months. She will call us if she will have any GI concerning symptoms. Patient is agreeable to current plan of care and verbalizes understanding of instructions. She was given the opportunity to ask questions and all questions answered. Thank you for allowing me to participate in her care Orders: Orders US abdomen avitia w elastography 09/06/25 K76.0 - Fatty (change of) liver, not elsewhere classified Coding Level of Care Code Est Pt Level 3 (60421) Diagnoses Transaminitis R74.01 Fatty liver K76.0 Postprandial abdominal pain in right upper quadrant R10.11 Postprandial abdominal bloating R14.0 Time Spent (min) 30 Comment 20 minutes spent with patient and additional 10 minutes spent reviewing her records
[2025-09-06 15:52] VITALS: BP 138/80; PULSE 68; O2SAT 98; BMI 33.7
--- OUTSIDE RECORDS SUMMARY | 2025-09-06 19:50 | XMS_ITS | Clinical Summary ---
Author Organization [facility] Address [address] [place] [address] Phone Care Team Providers Care Alumni Relations Officer Name Role Phone Tara Cardenas MD Primary Care Provider [phone] Allergies Active Allergy Reactions Criticality Noted Date [...] VACCINE (#1) 2025 COVID-19 VACCINE ( - 2024-2 6 season) 2025 RSV VACCINE (1 - 1-dose 75+ series) 2041 HEPATITIS A VACCINES Aged Out No long [...] topic Medical Devices Not on file [place] [address] [address] [address] [place] [place] [address] [place] [place] [address] [place] [place] [place] [address] [place] [address] [place] [address] [facility] CHOICE [facility] CHOICE [facility] CHOICE Care Teams Alumni Relations Officer Relationship Specialty Start Date End Date Tara Cardenas MD [address] [place] [address] PCP - General Internal Medicine 05/04/22 Additional Source Comments The information contained in this document represents components of the legal health record. It is not the complete legal health record.[facility]
== END 2025-09-06 16:24 | disposition home or self-care (01) ==
LOC: HO.HGI 15:36
PROVIDERS: PCP Internal Medicine; Visit Provider Nurse Practitioner Family
DX: R74.01 Elevation of levels of liver transaminase levels (principal); K76.0 Fatty (change of) liver, not elsewhere classified; R10.11 Right upper quadrant pain; R14.0 Abdominal distension (gaseous)
CPT/HCPCS: 99213

== ENCOUNTER 2025-09-09 15:06 | Outpatient (AMB) | payer OTHER, SELFPAY ==
[2025-09-09 15:24] VITALS: BP 126/82; PULSE 72; O2SAT 98; BMI 34.1
--- NOTE | 2025-09-09 15:24 | A.OFFPC_ITS ---
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: No Accompanied by: Self / Same As Patient Allergies hydrochlorothiazide (HYDROCHLOROTHIAZIDE) Allergy (Severe, Verified 09/09/25 15:25) SWELLING lisinopril (LISINOPRIL) Allergy (Intermediate, Verified 09/09/25 15:25) FACIAL SWELLING peanut (Peanut) Allergy (Mild, Verified 09/09/25 15:25) HIVES Medication List - Last Reconciled 09/09/25 by Tara Cardenas MD albuterol sulfate 90 mcg/actuation 2 puffs inhalation Q4-6H PRN [id number]-zhjixbhbokccs-flmx 50-300-40 mg (Fioricet) 1 cap PO Q8H 4 days cholecalciferol (vitamin D3) 50 mcg PO DAILY fluticasone propionate 50 mcg/actuation (Flonase Allergy Relief) 1 spray intranasal DAILY lidocaine 5% 1 patch topical DAILY lorazepam 0.5 mg PO DAILY PRN 7 days verapamil ER 240 mg PO DAILY 90 days Tobacco use date assessed: 09/09/25 Dental Screening Dental Screen Date: 09/09/25 Did you have a dental visit in the last 12 months?: Yes Did you have a dental problem in the last 6 months where you did not have access to dental care?: No Was dental information given to patient?: Patient has dentist HPI annual exam HPI Details 06/21/2025 R breast cancer [facility] Medical History Transaminitis Nasal congestion History of ductal carcinoma in situ (DCIS) of breast Cough Anxiety Migraine HTN (hypertension) LUDA (obstructive sleep apnea) Degenerative cervical disc Asthma Obesity (BMI 30-39.9) LFT elevation Vitamin D deficiency Hypercholesterolemia Surgical History History of dental surgery History of colonoscopy Hx of tubal ligation History of lumpectomy of right breast History of tonsillectomy H/O section Family History Brother Myocardial infarct Paternal Grandfather Myocardial infarct Mother Lymphoma Breast CA Father Alcohol abuse Brother LUCA (generalized anxiety disorder) Family/Other Breast CA Other FHx: mental illness Social History Household Members: Spouse and Children Housing: House Are you a primary foster care case manager to a significant other at home: No Do you presently have visiting nurse or other home services: No Alcohol intake: never Patient Tobacco Use Status: Never used Tobacco e-Cigarette/Vaping Use: Never Used Second Hand Smoke Exposure: No service: No Current occupational status: employed Cognitive needs: No Hearing needs: No Vision needs: No Female Reproductive History Menstrual Age of Menarche: 12 Questionnaire PHQ-9 Over the last 2 weeks, how often have you been bothered by any of the following problems? 1. Little interest or pleasure in doing things: not at all 2. Feeling down, depressed, or hopeless: not at all 3. Trouble falling or staying asleep, or sleeping too much: several days 4. Feeling tired or having little energy: several days 5. Poor appetite or overeating: not at all 6. Feeling bad about yourself - or that you are a failure or have let yourself or your family down: not at all 7. Trouble concentrating on things, such as reading the newspaper or watching television: not at all 8. Moving or speaking so slowly that other people could have noticed. Or the opposite - being so fidgety or restless that you have been moving around a lot more than usual: not at all 9. Thoughts that you would be better off or of hurting yourself in some way: not at all Total score: 2 Source: Developed by Drs. Oral Ricks, Silvia Freed, Hal Harrison and colleagues, with an educational filippo from [employer]. Thrive Questionnaire Date Thrive assessed: 09/09/25 I am a: Patient What is your living situation today?: I have a steady place to live Within the past 12 months, did the food you bought not last and you didn't have the money to get more?: I choose not to answer this question Within the past 12 months, did you worry whether your food would run out before you got money to buy more?: I choose not to answer this question Do you have trouble paying for medicines?: I choose not to answer this question Do you have trouble getting transportation to medical appointments?: I choose not to answer this question Do you have trouble paying your heating and electricity bill?: I choose not to answer this question Do you have trouble taking care of your child, family member or friend?: I choose not to answer this question Do you have trouble with day-to-day activities such as bathing, preparing meals, shopping, managing finances, etc.?: I choose not to answer this question Are you currently unemployed and looking for a job?: I choose not to answer this question Are you interested in more education?: I choose not to answer this question Please select the resources that you would like help with: None Currently or been in a relationship where the following occur: No concerns reported THRIVE Score: 0 AUDIT C Alcohol Use Questionnaire (AUDIT-C) 1. How often do you have a drink containing alcohol?: Never 3. How often do you have six or more drinks on one occasion?: Never Total Score: 0 LUCA-7 AMB Questionnaire LUCA-7 Date LUCA - 7 assessed: 09/09/25 Feeling nervous, anxious, or on edge: 0 = Not at all Not being able to stop or control worryin = Not at all Worrying too much about different things: 0 = Not at all Trouble relaxin = Not at all Being so restless that it is hard to sit still: 0 = Not at all Becoming easily annoyed or irritable: 0 = Not at all Feeling afraid as if something awful might happen: 0 = Not at all Total LUCA-7 score (0-4 normal; 5-9 mild; 10-14 moderate; 15-21 severe): 0 Source: Developed by Drs. Oral Ricks, Silvia Freed, Hal Harrison and colleagues, with an educational filippo from [employer]. Review of Systems Const Denies poor appetite and Denies weakness Eyes Denies no additional complaints ENT Reports Normal hearing present, Denies dizziness, Denies nasal congestion, Denies tinnitus and Denies sore throat Card Denies chest pain, Denies syncope, Denies rapid heart rate and Denies dyspnea Resp Denies cough and Denies dyspnea GI Denies change in stool character, Reports constipation, Denies diarrhea, Denies nausea and Denies vomiting Denies urinary frequency, Denies difficulty voiding and Denies dysuria Neuro Reports Normal hearing present, Denies confusion, Denies dizziness, Denies syncope and Denies weakness Psych Denies confusion Physical exam (Primary Care) Vital Signs: Last Vital Signs Pulse 72 09/09/25 15:24 BP 126/82 09/09/25 15:24 Pulse Ox 98 09/09/25 15:24 Oxygen Delivery Method Room Air 09/09/25 15:24 BMI result Body Mass Index 34.1 Tobacco/Smoking Status: Tobacco use Status Tobacco use date assessed 09/09/25 09/09/25 15:31 Patient Tobacco Use Status Never used Tobacco 09/09/25 15:31 e-Cigarette/Vaping Use Never Used 09/09/25 15:31 PHQ-9: PHQ-9 Score PHQ-9: Total score 2 09/09/25 17:18 Thrive Assessment: Date of Thrive Assessment Date Thrive assessed 09/09/25 09/09/25 15:31 Currently or been in a relationship where the following occur: No concerns reported Const General: No confusion Orientation/consciousness: No confusion HENMT Head: Yes normocephalic Ears: external ears normal and TM's normal bilaterally Face and sinus: Yes normal facial exam Mouth: moist mucous membranes Throat: Yes tonsils normal Eyes Conjunctivae: conjunctivae normal Pupils: Equal, round and reactive pupils present and Pupil accommodation reflex normal Direct Ophthalmoscopy: normal light reflex Neck Neck: No lymphadenopathy Thyroid: Thyroid normal Chest Chest palpation & inspection: normal inspection of the chest Resp Effort & Inspection: normal respiratory effort and no audible wheezes Auscultation: clear to auscultation bilaterally, no crackles, no wheezes and lung sounds not diminished Cardio Rate: regular rate Rhythm: regular rhythm Peripheral pulses: radial pulses present and dorsalis pedis present GI Palpation (GI): no masses Auscultation: normal bowel sounds and normoactive bowel sounds Rectal Exam - Female: deferred Skin General skin exam: no rashes or lesions noted Rashes: no rashes Neuro General: No confusion Cranial nerves: Yes Equal, round and reactive pupils present and Yes Normal hearing present Cognition (Neuro): normal cognition Gait exam (Neuro): Normal gait present Motor exam (neuro): 5/5 motor strength present throughout Deep tendon reflexes (DTR's): Right brachioradialis reflex intensity grade: 2+, Left brachioradialis reflex intensity grade: 2+, Right patellar reflex intensity grade: 2+ and Left patellar reflex intensity grade: 2+ Extrem General: No edema Coding Level of Care Code Est Pt Prev Care 40-64y(95679) Diagnoses Ductal carcinoma in situ (DCIS) of right breast D05.11 Impaired fasting blood sugar R73.01 Obesity (BMI 30-39.9) E66.9 Primary hypertension I10 Hypertension type: primary hypertension Hypercholesterolemia E78.00 Generalized anxiety disorder F41.1 Annual physical exam Z00.00 Assessment & Plan Assessment & Plan (1) Ductal carcinoma in situ (DCIS) of right breast: Comment: 03/28/2022, right breast lumpectomy March [address]22 Dr. Ovi andrea Code(s): D05.11 - Intraductal carcinoma in situ of right breast Category: Medical Plan: Continue to follow-up with Hematology-Oncology (2) Impaired fasting blood sugar: Code(s): R73.01 - Impaired fasting glucose Category: Medical Plan: Decrease the amount of carbohydrate intake, pasta, bread, rice and potatoes are all sugar and that is aside from all the sweet stuff, remember that fruits are good but they are Sweet also. (3) Obesity (BMI 30-39.9): Code(s): E66.9 - Obesity, unspecified Category: Medical Plan: Diet and exercise (4) Hypertension: Code(s): I10 - Essential (primary) hypertension Category: Medical Qualifiers: Hypertension type: primary hypertension Qualified Code(s): I10 - Essential (primary) hypertension Plan: Continue with blood pressure medication. Decrease salt intake and exercise on verapamil 240 mg once a day (5) Hypercholesterolemia: Code(s): E78.00 - Pure hypercholesterolemia, unspecified Category: Medical Plan: Avoid fried foods, chicken skin, eggs, butter margarine, pastries and meat. Be it pork or beef they have a lot of cholesterol LDL goal of less than 130 and triglyceride of less than 150 declined medication (6) Generalized anxiety disorder: Code(s): F41.1 - Generalized anxiety disorder Category: Medical Plan: Continue with lorazepam as needed (7) Annual physical exam: Code(s): Z00.00 - Encounter for general adult medical examination without abnormal findings Category: Medical Plan History of Present Illness The patient is a 59-year-old female presenting for a physical examination and follow-up on chronic conditions. The patient has a history of breast cancer, having undergone a lumpectomy in March 2022. She continues to follow up with hematology oncology, with the last note from December indicating routine monitoring. The patient has obstructive sleep apnea but has declined treatment. She also has a history of fatty liver, for which she follows up with gastroenterology and was advised to get an ultrasound of the liver. The patient has a history of bilateral nephrolithiasis, generalized anxiety disorder, asthma, hypertension, migraine, and hypercholesterolemia. Her blood work from July showed normal blood count and electrolytes, but elevated fasting blood sugar at 114 mg/dL and elevated liver enzymes at 45 U/L. Her LDL cholesterol was noted to be 161 mg/dL, which is above the target of less than 130 mg/dL. The patient reports a diet consisting of smoothies with coconut milk, blueberries, and avocado for breakfast, and salads or vegetables with protein for other meals. She acknowledges the need for more exercise but cites a busy lifestyle as a barrier. Health Maintenance - Colon cancer screening due next year - Mammogram due - Bone density test in June 2024 - Continue follow-up with hematology oncology - Advised to get an ultrasound of the liver Social History - Employment: Patient reports a busy work schedule, contributing to limited time for exercise. - Family Status: Lives with family, including a mother who requires care. - Nutritional Intake: Diet includes smoothies with coconut milk, blueberries, and avocado, and meals of salads or vegetables with protein. - Exercise: Limited due to busy lifestyle, with only 15 minutes available for walking. Review of Systems - General: Denies recent weight loss or gain. - Respiratory: Denies recent dyspnea or cough. - Cardiovascular: Denies chest pain or palpitations. - Gastrointestinal: Reports nausea when pain is severe; denies vomiting or diarrhea. - Neurological: Reports occasional headaches; denies dizziness or syncope. - Musculoskeletal: Denies joint pain or swelling. - Psychiatric: Reports anxiety; denies depression. Physical Exam General: Cooperative, healthy appearing, comfortable, no acute distress and well developed Orientation: Patient oriented x3 Limitations: No limitations Head: Normal to inspection Ears: Hearing challenging at times due to ringing in the ear Nose: Normal external nose present Face and sinus: Normal facial exam Eyes: Appearance normal, both eyes and all related structures Neck: Normal visual inspection and Yes full ROM Respiratory: Normal respiratory effort and able to speak in complete sentences. Clear to auscultation bilaterally Cardiovascular: Regular rate and rhythm. Normal S1 and S2 GI: Normal to inspection. Soft to palpation and nontender Skin: No rashes or lesions noted Neuro: Patient oriented x3 Extremities: Normal to inspection Results - Labs: Normal blood count, elevated fasting blood sugar at 114 mg/dL, elevated liver enzymes at 45 U/L, elevated LDL cholesterol at 161 mg/dL. - Tests: Gastric emptying time test showed slight delay. Plan Patient was informed and verbally consented to the use of an ambient scribe for clinic note documentation during this visit. 1. Obesity The patient is advised to incorporate more physical activity into her routine despite her busy schedule, as exercise is crucial for weight management. Dietary modifications, including reducing carbohydrate intake, are recommended to aid in weight control. 2. Breast Cancer, Status Post Lumpectomy The patient continues to follow up with hematology oncology for routine monitoring, with the last note from December indicating no new findings. 3. Obstructive Sleep Apnea The patient has declined treatment for obstructive sleep apnea, and no further interventions were discussed during this visit. 4. Fatty Liver The patient is advised to follow up with gastroenterology and obtain an ultrasound of the liver to monitor the condition. 5. Bilateral Nephrolithiasis No specific plan was discussed for bilateral nephrolithiasis during this visit. 6. Generalized Anxiety Disorder The patient is advised to continue using lorazepam as needed for anxiety management. 7. Asthma The patient is advised to continue using albuterol as needed for asthma symptoms. 8. Hypertension The patient is currently on verapamil 240 mg once daily for hypertension management. 9. Migraine No specific plan was discussed for migraine management during this visit. 10. Hypercholesterolemia The patient is advised to aim for an LDL cholesterol goal of less than 130 mg/dL and triglycerides of less than 150 mg/dL. Dietary modifications and increased physical activity are recommended to achieve these targets. 11. Elevated Fasting Blood Sugar The patient is advised to monitor her diet closely and increase physical activity to manage elevated fasting blood sugar levels. 12. Elevated Liver Enzymes The patient is advised to follow up with gastroenterology for further evaluation of elevated liver enzymes. 13. Elevated Ldl Cholesterol The patient is advised to aim for an LDL cholesterol goal of less than 130 mg/dL and triglycerides of less than 150 mg/dL. Dietary modifications and increased physical activity are recommended to achieve these targets. 14. Delayed Gastric Emptying No specific plan was discussed for delayed gastric emptying during this visit. Discussion Notes During the visit, I discussed the importance of lifestyle modifications, including diet and exercise, to manage the patient's obesity, elevated blood sugar, and hypercholesterolemia. We reviewed the need for continued follow-up with hematology oncology for breast cancer monitoring and with gastroenterology for fatty liver management. The patient was informed about the upcoming preventative screenings, including a colonoscopy and mammogram. Patient Instructions - Increase physical activity to at least 30 minutes a day, if possible. - Follow a balanced diet, reducing carbohydrate intake and monitoring portion sizes. - Continue follow-up with hematology oncology and gastroenterology as scheduled. - Schedule and complete upcoming preventative screenings, including colonoscopy and mammogram. - Use lorazepam and albuterol as needed for anxiety and asthma symptoms, respectively. Orders: Orders Comprehensive Met. Panel 6 Months R73.01 - Impaired fasting glucose Free T4 (Free Thyroxine) 6 Months R73.01 - Impaired fasting glucose Lipid Panel 6 Months E78.00 - Pure hypercholesterolemia, unspecified, R73.01 - Impaired fasting glucose Vitamin B12 and Folate 6 Months R73.01 - Impaired fasting glucose Vitamin D 25-OH Total 6 Months R73.01 - Impaired fasting glucose Hemoglobin A1c 6 Months R73.01 - Impaired fasting glucose Complete Blood Count Auto Diff 6 Months R73.01 - Impaired fasting glucose Thyroid Stimulating Hormone 6 Months R73.01 - Impaired fasting glucose
--- OUTSIDE RECORDS SUMMARY | 2025-09-09 18:59 | XMS_ITS | Clinical Summary ---
Author Organization [facility] Address [address] [place] [address] Phone Care Team Providers Care Director Of Infection Control Name Role Phone Tara Cardenas MD Primary Care Provider [phone] Allergies Active Allergy Reactions Criticality Noted Date [...] topic Medical Devices Not on file Insurance [place] [address] [place] [address] [address] [place] [place] [address] [place] [address] [place] [place] [address] [facility] CHOICE [facility] CHOICE Care Teams Director Of Infection Control Relationship Specialty Start Date End Date Tara Cardenas MD [address] [place] [address] PCP - General Internal Medicine 05/04/22 Additional Source Comments The information contained in this document represents components of the legal health record. It is not the complete legal health record.[facility]
== END 2025-09-09 16:12 | disposition home or self-care (01) ==
LOC: HO.HMCH 15:07
PROVIDERS: PCP Internal Medicine; Visit Provider Internal Medicine
DX: Z00.00 Encounter for general adult medical examination without abnormal findings (principal); D05.11 Intraductal carcinoma in situ of right breast; E66.9 Obesity, unspecified; Z68.34 Body mass index [BMI] 34.0-34.9, adult; R73.01 Impaired fasting glucose; I10 Essential (primary) hypertension; E78.00 Pure hypercholesterolemia, unspecified; F41.1 Generalized anxiety disorder